=== PATIENT | male | born 1985 | race Caucasian/White ===

== ENCOUNTER 2018-09-28 08:57 | Emergency (ER) | payer SELFPAY ==
[2018-09-28 09:05] VITALS: BP 146/78
[2018-09-28] MEDS ORDERED: LIDOCAINE 1% INJ-PF (10 MG/ML) 30 ML SDV INJ ONE (09:11)
--- NOTE | 2018-09-28 09:17 | ER Document Report ---
ED General <BING SOUSA - Last Filed: 09/28/18 09:45> - General Mode of Arrival: Ambulatory Information source: Patient TRAVEL OUTSIDE OF THE [place] IN LAST 30 DAYS: No <JOYA CHARLTON - Last Filed: 09/28/18 10:10> - General Chief Complaint: Laceration Stated Complaint: LEFT FINGER LACERATION Time Seen by Provider: 09/28/18 09:07 Notes: Patient is a 33 year old male with no significant medical history presents to the emergency department complaining of pain and a laceration to the 2nd digit of the left hand. Patient states he was attempting to open a box with a pocket knife when he accidentally cut his finger. Patient states he does not remember his last tetanus shot. (JOYA CHARLTON) - Related Data Allergies/Adverse Reactions: No Known Allergies Allergy (Unverified 09/28/18 09:01) Past Medical History - General Information source: Patient - Social History Smoking Status: Current Every Day Smoker Cigarette use (# per day): Yes - 10/08 PPD Frequency of alcohol use: Rare Drug Abuse: None Family History: Reviewed & Not Pertinent Past Surgical History: Reports: Hx Appendectomy <JOYA CHARLTON - Last Filed: 09/28/18 10:10> Review of Systems - Review of Systems Constitutional: No symptoms reported EENT: No symptoms reported Cardiovascular: No symptoms reported Respiratory: No symptoms reported Gastrointestinal: No symptoms reported Genitourinary: No symptoms reported Male Genitourinary: No symptoms reported Musculoskeletal: See HPI Skin: No symptoms reported Hematologic/Lymphatic: No symptoms reported Neurological/Psychological: No symptoms reported -: Yes All other systems reviewed and negative <JOYA CHARLTON - Last Filed: 09/28/18 10:10> Physical Exam - Extremities General upper extremity: Other - Left index finger has a 4 cm curvilinear laceration over the volar proximal phalanx starting on the radial aspect of the finger, curving down across the volar aspect without going back the ulnar side. Hemostasis was controlled with a Wilmer drain wrapped around the proximal finger. No tendon involvement was seen on exploration. Sensation was intact to the distal finger on all 4 sides. The patient had good flexion at the DIP joint, the PIP joint, and the MCP joint. <BING SOUSA - Last Filed: 09/28/18 09:45> <JOYA CHARLTON - Last Filed: 09/28/18 10:10> - Vital signs Vitals: Temp Pulse Resp BP Pulse Ox 97.8 F 74 16 146/78 H 97 09/28/18 09:02 09/28/18 09:02 09/28/18 09:02 09/28/18 09:02 09/28/18 09:02 - Notes Notes: GENERAL: Alert, interacts well. No acute distress. HEAD: Normocephalic, atraumatic. EYES: Pupils equal, round, and reactive to light. Extraocular movements intact. ENT: Oral mucosa moist, tongue midline. NECK: Full range of motion. Supple. Trachea midline. LUNGS. No respiratory distress. HEART: Regular rate and rhythm. No murmurs, gallops, or rubs. EXTREMITIES: Moves all 4 extremities spontaneously. NEUROLOGICAL: Alert and oriented x3. Normal speech. PSYCH: Normal affect, normal mood. SKIN: Warm, dry, normal turgor. No rashes or lesions noted. (JOYA CHARLTON) - Vital Signs Vital signs: Temp Pulse Resp BP Pulse Ox 97.8 F 74 16 146/78 H 97 09/28/18 09:02 09/28/18 09:02 09/28/18 09:02 09/28/18 09:02 09/28/18 09:02 Procedures - Laceration/Wound Repair Left Finger 2nd digit Time completed: 09:40 Wound length (cm): 4 Wound's Depth, Shape: Flap, Other - Deep into the subcutaneous tissue Laceration pre-procedure: Sterile drapes applied, Shur-Clens applied Anesthetic type: 1% Lidocaine Volume Anesthetic (mLs): 3 - Digital nerve block Wound explored: Clean, No foreign body removed Irrigated w/ Saline (mLs): 30 Wound Debrided: Minimal Wound Repaired With: Sutures Suture Size/Type: 5:0 Number of Sutures: 7 Layer Closure?: No Post-procedure wound care: Sterile dressing applied Post-procedure NV exam normal: No - The finger remains anesthetized due to the digital nerve block Complications: No <BING SOUSA - Last Filed: 09/28/18 09:45> Discharge <BING SOUSA - Last Filed: 09/28/18 09:45> <JOYA CHARLTON - Last Filed: 09/28/18 10:10> - Discharge Clinical Impression: Finger laceration Qualifiers: Encounter type: initial encounter Finger: index finger Damage to nail status: without damage Foreign body presence: without foreign body Laterality: left Qualified Code(s): S61.211A - Laceration without foreign body of left index finger without damage to nail, initial encounter Condition: Stable Disposition: HOME, SELF-CARE Additional Instructions: Hand Laceration A laceration on the hand can present special problems. It may be difficult to keep the wound dry. Motion of the fingers can disturb the healing edges. Your work may involve exposure to damaging chemicals or water. Keep the wound clean and dry. If you can't keep the cut dry, undisturbed, and free of chemical exposure, please discuss this with the doctor. If any water or chemical gets onto the dressing, remove it, blot the wound dry, then apply a fresh bandage. Dressings should be changed every day. If you feel the stitches pulling as you move the hand, a splint or other form of protection is needed. If any signs of infection occur (swelling, redness, increasing tenderness, red streaks, tender lumps in the armpit, or fever), see the doctor immediately. Keep the wound clean and dressed. Elevate your hand is much as possible for the next 1-2 days. Avoid using that hand and particularly avoid extending the finger or flexing it against resistance. Take the antibiotics as prescribed. Take ibuprofen 800 mg every 8 hours or Aleve 2 tablets every 12 hours for pain as needed. You will be discharged with a narcotic pain medication to take for today if needed. Return in 7-10 days for suture removal. RETURN TO THE EMERGENCY ROOM IF ANY NEW OR WORSENING SYMPTOMS. Prescriptions: Cephalexin Monohydrate [Keflex 500 mg Capsule] 500 mg PO QID #20 capsule Referrals: LOCALMD,NO [Primary Care Provider] - Follow up as needed Scribe Attestation: 09/28/18 09:49 I personally performed the services described in the documentation, reviewed and edited the documentation which was dictated to the scribe in my presence, and it accurately records my words and actions. (BING SOUSA)
[2018-09-28] MEDS ORDERED: HYDROCODONE/ACETAMINOPHEN 5-325 MG (6 TAB/ER DISP) PO PRN (09:45)
[2018-09-28] MEDS ORDERED: CEPHALEXIN 500 MG CAPSULE PO ONE (09:45)
== END 2018-09-28 09:59 | disposition home or self-care (01) ==
LOC: ER 08:57
PROC: 0HQGXZZ Repair Left Hand Skin, External Approach (ICD-10-PCS; principal; 2018-09-28)
DX: S61.211A Laceration without foreign body of left index finger without damage to nail, initial encounter (principal); W26.0XXA Contact with knife, initial encounter; F17.210 Nicotine dependence, cigarettes, uncomplicated
CPT/HCPCS: 99282; 12002; J3490

== ENCOUNTER 2020-03-03 14:59 | Inpatient (IN) | payer OTHER ==
--- NOTE | 2020-03-03 15:35 | ER Document Report ---
ED Medical Screen (RME) - General Chief Complaint: Abdominal Pain Stated Complaint: ABDOMINAL PAIN Time Seen by Provider: 03/03/20 15:25 Primary Care Provider: AGUS CASPER [Primary Care Provider] - Follow up as needed Information source: Patient Notes: 34-year-old male presented to ED for complaint of lower abdominal pain. He states he went with his family this morning when he came back he had some lower abdominal pain so he took some Gas-X. He states the pain is been getting worse all day. He has tenderness to the left and the right lower quadrant but much worse on the right. He does have rebound tenderness to the right. He states he had an appendectomy in 2011 with a ruptured appendix. He states he had to go back in a couple times due to infection says that it cannot be an appendicitis at this time. He is alert oriented respirations regular and unlabored speaking in full sentences. I have greeted and performed a rapid initial assessment of this patient. A comprehensive ED assessment and evaluation of the patient, analysis of test results and completion of medical decision making process will be conducted by an additional ED providers. TRAVEL OUTSIDE OF THE [place] IN LAST 30 DAYS: No - Related Data Allergies/Adverse Reactions: No Known Allergies Allergy (Unverified 09/28/18 09:01) Past Medical History Renal/ Medical History: Denies: Hx Peritoneal Dialysis Past Surgical History: Reports: Hx Appendectomy Doctor's Discharge - Discharge Referrals: AGUS CASPER [Primary Care Provider] - Follow up as needed
--- NOTE | 2020-03-03 16:20 | RADIOLOGY REPORT (SQ) ---
EXAM DESCRIPTION: ACUTE ABDOMEN SERIES IMAGES COMPLETED DATE/TIME: 03/03/2020 4:09 pm REASON FOR STUDY: Severe lower abdominal pain history appendectomy COMPARISON: None. NUMBER OF VIEWS: Three views. TECHNIQUE: Frontal chest, supine abdomen and upright abdomen radiographic images acquired. LIMITATIONS: None. FINDINGS: CHEST: Lungs clear of infiltrates. Cardiac silhouette size, shirley unremarkable. No pleura l effusion or pneumothorax. No subdiaphragmatic free air. FREE AIR: None. No abnormal gas collections. BOWEL GAS PATTERN: Nonobstructive pattern. No dilated loops or air fluid levels. Large amount of sto ol in the ascending colon. CALCIFICATIONS: No suspicious calcifications. HARDWARE: None in the abdomen. SOFT TISSUES: No gross mass or suggestion of organomegaly. BONES: No acute fracture. No worrisome bone lesions. OTHER: No other significant finding. IMPRESSION: Large amount of stool in the ascending colon TECHNICAL DOCUMENTATION: JOB ID: [id number] 2010 [employer]- All Rights Reserved Reading location - IP/workstation name: [email or web address]
[2020-03-03 16:43] LABS: ABSOLUTE EOSINOPHILS # (AUTO) 0.1 10^3/uL (0.0-0.6); ABSOLUTE LYMPHOCYTES (AUTO) 1.7 10^3/uL (0.5-4.7); ABSOLUTE MONOCYTES (AUTO) 0.8 10^3/uL (0.1-1.4); ABSOLUTE NEUT (AUTO) 11.4 10^3/uL (1.7-8.2); BASOPHILS % (AUTO) 0.3 % (0-2); EOSINOPHILS % (AUTO) 0.7 % (0-6); HEMATOCRIT 39.1 % (37.9-51.0); HEMOGLOBIN 13.3 g/dL (13.5-17.0); LYMPHOCYTES % (AUTO) 12.2 % (13-45); MEAN CORPUSCULAR HEMOGLOBIN 30.7 pg (27.0-33.4); MEAN CORPUSCULAR VOLUME 90 fl (80-97); MONOCYTES % (AUTO) 5.7 % (3-13); PLATELET COUNT 446 10^3/uL (150-450); RED BLOOD COUNT 4.34 10^6/uL (4.35-5.55); RED CELL DISTRIBUTION WIDTH 13.3 % (11.5-14.0); SEGMENTED NEUTROPHILS % (AUTO) 81.1 % (42-78); TOTAL CELLS COUNTED % (AUTO) 100 %
[2020-03-03 16:54] LABS: APPEARANCE,URINE CLEAR; BILIRUBIN,URINE NEGATIVE (NEGATIVE); COLOR,URINE YELLOW; GLUCOSE, URINE NEGATIVE (NEGATIVE); KETONES,URINE TRACE mg/dL (NEGATIVE); LEUKOCYTE ESTERASE,URINE NEGATIVE (NEGATIVE); NITRITE,URINE NEGATIVE (NEGATIVE); PROTEIN,URINE NEGATIVE (NEGATIVE); URINE SPECIFIC GRAVITY 1.024; UROBILINOGEN,URINE NEGATIVE mg/dL (<2.0)
[2020-03-03 17:00] LABS: ALKALINE PHOSPHATASE 169 U/L (38-126); ANION GAP 8 (5-19); ASPARTATE AMINO TRANSFERASE 29 U/L (17-59); BILIRUBIN,DIRECT 0.4 mg/dL (0.0-0.4); BILIRUBIN,TOTAL 0.4 mg/dL (0.2-1.3); BLOOD UREA NITROGEN 14 mg/dL (7-20); CALCIUM 9.5 mg/dL (8.4-10.2); CARBON DIOXIDE 30 mmol/L (22-30); CHLORIDE 98 mmol/L (98-107); GLUCOSE 102 mg/dL (75-110); POTASSIUM 4.7 mmol/L (3.6-5.0); TOTAL PROTEIN 7.8 g/dL (6.3-8.2)
[2020-03-03] MEDS ORDERED: MORPHINE SULFATE 10 MG/ML INJ IV ONE (17:08)
--- NOTE | 2020-03-03 17:10 | ER Document Report ---
ED GI/ - General Chief Complaint: Abdominal Pain Stated Complaint: ABDOMINAL PAIN Time Seen by Provider: 03/03/20 15:25 Primary Care Provider: AGUS CASPER [NO LOCAL MD] - Follow up as needed Notes: HPI: 34-year-old male presents today with the onset at 10 AM this morning of pain to the lower abdomen. Right greater than left. A stabbing-like quality. No radiation to the back to the groin. No nausea, vomiting, fevers, dysuria, diarrhea. Patient in 2011 had a ruptured appendix. No history or family history of kidney stones. No flank pain. ROS: See HPI All other review of systems reviewed and otherwise negative Reviewed vital signs and nursing note as charted by RN. PHYSICAL EXAM: CONSTITUTIONAL: Alert and oriented and responds appropriately to questions. Well-appearing; well-nourished HEAD: Normocephalic; atraumatic EYES: Sclerae non-icteric NECK: Supple without meningismus; non-tender; no cervical lymphadenopathy, no masses CARD: Regular rate and rhythm; no murmurs; symmetric distal pulses RESP: Normal chest excursion without splinting or tachypnea; breath sounds clear and equal bilaterally ABD/GI: Normal bowel sounds; non-distended; soft, tender to palpation diffusely of the abdomen with no palpable masses no rebound or guarding. Mostly to the right lower quadrant GI/: Patient has no testicular pain or swelling no inguinal masses appreciated BACK: The back appears normal and is non-tender to palpation EXT: Normal ROM in all joints; non-tender to palpation; no edema SKIN: No acute lesions noted NEURO: CN 2-12 intact; 5/5 bilateral upper and lower extremity strength with sensation intact to light touch PSYCH: The patient's mood and manner are appropriate. Grooming and personal hygiene are appropriate. TRAVEL OUTSIDE OF THE [place] IN LAST 30 DAYS: No - Related Data Allergies/Adverse Reactions: No Known Allergies Allergy (Unverified 09/28/18 09:01) Past Medical History - General Information source: Patient - Social History Smoking Status: Current Every Day Smoker Chew tobacco use (# tins/day): No Frequency of alcohol use: Rare Drug Abuse: None Family History: Reviewed & Not Pertinent Patient has homicidal ideation: No Renal/ Medical History: Denies: Hx Peritoneal Dialysis Past Surgical History: Reports: Hx Appendectomy Physical Exam - Vital signs Vitals: Temp Pulse Resp BP Pulse Ox 98.1 F 69 20 142/79 H 100 03/03/20 15:24 03/03/20 15:24 03/03/20 15:24 03/03/20 15:24 03/03/20 15:24 Course - Re-evaluation Re-evalutation: Given the above history and physical, three-way x-ray was initially ordered in triage as well as basic and abdominal labs. Pain medications have been provided. Given the patient's previous surgical history with examination as above, I will obtain a CT scan of the abdomen and pelvis with contrast. - Vital Signs Vital signs: Temp Pulse Resp BP Pulse Ox 98.1 F 69 20 142/79 H 100 03/03/20 15:25 03/03/20 15:24 03/03/20 15:24 03/03/20 15:24 03/03/20 15:24 - Laboratory Result Diagrams: 03/03/20 16:27 03/03/20 16:27 Laboratory results interpreted by me: 03/03/20 03/03/20 03/03/20 16:27 16:27 16:27 WBC 14.0 H RBC 4.34 L Hgb 13.3 L Lymph % (Auto) 12.2 L Absolute Neuts (auto) 11.4 H Seg Neutrophils % 81.1 H Sodium 136.1 L Alkaline Phosphatase 169 H Lipase 8357.5 H Urine Ketones TRACE H Urine Ascorbic Acid 40 H Discharge - Discharge Clinical Impression: Acute appendicitis Qualifiers: Acute appendicitis type: unspecified acute appendicitis type Qualified Code(s): K35.80 - Unspecified acute appendicitis Condition: Fair Disposition: ADMITTED INPATIENT Admitting Provider: Michelle (Hospitalist) Unit Admitted: Medical Floor Referrals: LOCALMD,NO [NO LOCAL MD] - Follow up as needed
--- NOTE | 2020-03-03 18:11 | RADIOLOGY REPORT (SQ) ---
EXAM DESCRIPTION: CT ABD/PELVIS WITH IV ONLY IMAGES COMPLETED DATE/TIME: 03/03/2020 4:49 pm REASON FOR STUDY: 11; lower abdominal pain; history of appendicitis status post appendectomy in 2011 . Right and left lower quadrant abdominal pain. COMPARISON: None. TECHNIQUE: CT scan of the abdomen and pelvis performed using helical scanning technique with dynamic intravenous contrast injection. No oral contrast. Images reviewed with lung, soft tissue, and bone windows. Reconstructed coronal and sagittal MPR images reviewed. Delayed images for evaluation of the urinary system also acquired. All images stored on PACS. All CT scanners at this facility use dose modulation, iterative reconstruction, and/or weight based d osing when appropriate to reduce radiation dose to as low as reasonably achievable (ALARA). [facility]: Dose Right [facility]: CareDose [facility]: Dose Right [facility]: Teradose 4D [facility]: SoloStocks CONTRAST TYPE AND DOSE: contrast/concentration: Isovue 350.00 mg/ml; Total Contrast Delivered: 100.0 ml; Total Saline Delivered: 72.0 ml RENAL FUNCTION: None required. The patient is less than 50 years old. RADIATION DOSE: CT Rad equipment meets quality standard of care and radiation dose reduction techniq ues were employed. CTDIvol: 5.6 - 7.7 mGy. DLP: 723 mGy-cm.. LIMITATIONS: None. FINDINGS: LOWER CHEST: No significant findings. No nodules or infiltrates. LIVER: Liver is enlarged measuring 21.5 cm craniocaudal at the midclavicular line. Mild diffuse hepa tic steatosis. No focal hepatic mass. Hepatic and portal veins are patent. No intrahepatic or extr ahepatic biliary ductal dilation. SPLEEN: Normal size. No focal lesions. PANCREAS: No masses. No significant calcifications. No adjacent inflammation or peripancreatic fluid collections. Pancreatic duct not dilated. GALLBLADDER: No identified stones by CT criteria. No inflammatory changes to suggest cholecystitis. ADRENAL GLANDS: No significant masses or asymmetry. RIGHT KIDNEY AND URETER: No solid masses. No significant calcifications. No hydronephrosis or hyd roureter. LEFT KIDNEY AND URETER: No solid masses. No significant calcifications. No hydronephrosis or hydr oureter. AORTA AND VESSELS: No aneurysm. No dissection. Renal arteries, SMA, celiac without stenosis. RETROPERITONEUM: No retroperitoneal adenopathy, hemorrhage or masses. BOWEL AND PERITONEAL CAVITY: There is a large amount of stool throughout the colon and in the rectum. No bowel obstruction. Small amount of ascites in the pericolic gutters and pelvis. No bowel wall thickening. No pneumoperitoneum. APPENDIX: Surgically absent. PELVIS: Small amount of free fluid in the pelvis. No pelvic mass. The urinary bladder is unremarkab le. Calcified pelvic phleboliths. ABDOMINAL WALL: No masses. No hernias. BONES: No significant or acute findings. OTHER: No other significant finding. IMPRESSION: 1. Small amount of ascites in the abdomen and pelvis, nonspecific however could be seen with infectio us or inflammatory process. 2. Moderate hepatomegaly with mild hepatic steatosis. Finding could be seen with acute hepatitis. C linical correlation. 3. Large amount of stool throughout the colon which can be seen with constipation. TECHNICAL DOCUMENTATION: JOB ID: [id number] Quality ID # [id number]: Final reports with documentation of one or more dose reduction techniques (e.g., Au tomated exposure control, adjustment of the mA and/or kV according to patient size, use of iterative reconstruction technique) 2010 [employer]- All Rights Reserved Reading location - IP/workstation name: [email or web address]
[2020-03-03] MEDS ORDERED: FENTANYL CITRATE INJ/PF 100 MCG/2 ML AMPUL IV ONE (18:14)
[2020-03-03] MEDS ORDERED: ONDANSETRON 4 MG TAB.RAPDIS PO PRN (18:40)
[2020-03-03] MEDS ORDERED: ONDANSETRON HCL INJ/PF 4 MG/2 ML SDV IV PRN (18:40)
[2020-03-03] MEDS ORDERED: MAGNESIUM HYDROXIDE SUSP 30 ML UDCUP PO PRN (18:40)
[2020-03-03] MEDS ORDERED: HYDROMORPHONE HCL INJ/PF 2 MG/ML AMPULE IV PRN ×6 (18:55→22:00)
--- NOTE | 2020-03-03 19:05 | PDOC H&P ---
History of Present Illness Admission Date/PCP: 03/03/20 18:35 BENOIT SANDERS MD History of Present Illness: KEILA JIANG is a 34 year old male who comes into the emergency room today with acute abdominal pain.. Patient states that on Thursday he had 2 episodes of vomiting he just felt nauseated and vomited twice and he thought he had worked too long in the sunshine, but gotten too hot. States that last night he felt nauseated and did not eat much supper but he did have what he called a normal bowel movement last night. Morning he also had a bowel movement but was not very hungry and has not had any breakfast or lunch. She states today around 10:[address] was riding down the road he started getting vague midepigastric right and left upper quadrant abdominal pain that worsened u ntil around 1:00 when he got severe "10 out of 10". Patient's mother is a nurse practitioner and he called her and she told him to go to the emergency room.. She states it feels like it did when he had his appendix removed in 2011. Patient is nauseated now but no vomiting and is complaining of vague generalized upper abdominal pain. Patient about his alcohol consumption he said the last time he had anything to drink was about 2 weeks ago. Patient states that since he got out of the in 2011 he has not been a heavy drinker but when he was in the for 5 years he drank heavy. She states that so far the pain medicine has not helped in the ER significantly.. Past Medical History Cardiac Medical History: Reports: None Pulmonary Medical History: Reports: None Past Surgical History Past Surgical History: Reports: Appendectomy Social History Smoking Status: Current Every Day Smoker Electronic Cigarette use?: No - Advance Directive Resuscitation Status: Full Code Family History Family History: Reviewed & Not Pertinent Parental Family History Reviewed: No Children Family History Reviewed: No Sibling(s) Family History Reviewed.: No Medication/Allergy Home Medications: Cephalexin Monohydrate [Keflex 500 mg Capsule] 500 mg PO QID #20 capsule 09/28/18 Allergies/Adverse Reactions: No Known Allergies Allergy (Unverified 09/28/18 09:01) Review of Systems Constitutional: ABSENT: chills, fever(s), headache(s), weight gain, weight loss Cardiovascular: ABSENT: chest pain, dyspnea on exertion, edema, orthropnea, palpitations Respiratory: ABSENT: cough, hemoptysis Gastrointestinal: PRESENT: abdominal pain, nausea, vomiting Neurological: ABSENT: abnormal gait, abnormal speech, confusion, dizziness, focal weakness, syncope Psychiatric: ABSENT: anxiety, depression, homidical ideation, suicidal ideation Physical Exam Vital Signs: Temp Pulse Resp BP Pulse Ox 98.1 F 69 20 142/79 H 100 03/03/20 15:25 03/03/20 15:24 03/03/20 15:24 03/03/20 15:24 03/03/20 15:24 Intake & Output 03/02/20 03/03/20 03/04/20 06:59 06:59 06:59 Weight 70.7 kg General appearance: PRESENT: mild distress Respiratory exam: PRESENT: clear to auscultation luis felipe. ABSENT: rales, rhonchi, wheezes Cardiovascular exam: PRESENT: RRR. ABSENT: diastolic murmur, rubs, systolic murmur GI/Abdominal exam: PRESENT: diminished bowel sounds, distended, firm, tenderness Neurological exam: PRESENT: alert, awake, oriented to person, oriented to place, oriented to time, oriented to situation, CN II-XII grossly intact. ABSENT: motor sensory deficit Psychiatric exam: PRESENT: appropriate affect, normal mood. ABSENT: homicidal ideation, suicidal ideation Results Laboratory Results: 03/03/20 16:27 03/03/20 16:27 03/03/20 03/03/20 03/03/20 16:27 16:27 16:27 WBC 14.0 H RBC 4.34 L Hgb 13.3 L Hct 39.1 MCV 90 MCH 30.7 MCHC 34.0 RDW 13.3 Plt Count 446 Seg Neutrophils % 81.1 H Sodium 136.1 L Potassium 4.7 Chloride 98 Carbon Dioxide 30 Anion Gap 8 BUN 14 Creatinine 0.89 Est GFR ( Amer) > 60 Glucose 102 Calcium 9.5 Total Bilirubin 0.4 AST 29 Alkaline Phosphatase 169 H Total Protein 7.8 Albumin 5.0 Amylase Lipase 8357.5 H Urine Color YELLOW Urine Appearance CLEAR Urine pH 5.0 Ur Specific [place] 1.024 Urine Protein NEGATIVE Urine Glucose (UA) NEGATIVE Urine Ketones TRACE H Urine Blood NEGATIVE Urine Nitrite NEGATIVE Ur Leukocyte Esterase NEGATIVE Urine WBC (Auto) 0 Urine RBC (Auto) 1 03/03/20 16:27 WBC RBC Hgb Hct MCV MCH MCHC RDW Plt Count Seg Neutrophils % Sodium Potassium Chloride Carbon Dioxide Anion Gap BUN Creatinine Est GFR ( Amer) Glucose Calcium Total Bilirubin AST Alkaline Phosphatase Total Protein Albumin Amylase 829 H Lipase Urine Color Urine Appearance Urine pH Ur Specific [place] Urine Protein Urine Glucose (UA) Urine Ketones Urine Blood Urine Nitrite Ur Leukocyte Esterase Urine WBC (Auto) Urine RBC (Auto) Impressions: Acute Abdomen Series 03/03/20 15:28 IMPRESSION: Large amount of stool in the ascending colon Abdomen/Pelvis CT 03/03/20 17:00 IMPRESSION: 1. Small amount of ascites in the abdomen and pelvis, nonspecific however could be seen with infectious or inflammatory process. 2. Moderate hepatomegaly with mild hepatic steatosis. Finding could be seen with acute hepatitis. Clinical correlation. 3. Large amount of stool throughout the colon which can be seen with constipation. Assessment and Plan - Diagnosis (1) Abdominal pain Is this a current diagnosis for this admission?: Yes (2) Pancreatitis Is this a current diagnosis for this admission?: Yes (3) Hepatomegaly Is this a current diagnosis for this admission?: Yes (4) Elevated lipase Is this a current diagnosis for this admission?: Yes - Plan Summary Summary: Patient is coming in for IV fluids, n.p.o., IV pain medicine, patient has had a CT scan of the abdomen and pelvis but is also going to get a abdominal ultrasound looking for gallstones sludge or any other indication of gallbladder disease which would make this a gallbladder pancreatitis. This appears to be an alcoholic pancreatitis at the present time. I have called general surgery and he feels that unless this patient has gallbladder disease it should be considered an alcoholic pancreatitis. In fact ultrasound is positive he would like to be consulted on this case. Also has signs of constipation on his CT scan and acute abdominal series and will get a fleets enema tonight and another 1 in the morning.. Is n.p.o. I have explained all this to the patient and he is texted his mother what we have disc ussed - Time Time Spent with patient: 35 or more minutes
[2020-03-03 19:12] LABS: INTERNATIONAL RATION (INR) 0.92; PROTHROMBIN TIME 12.3 SEC (11.4-15.4)
--- NOTE | 2020-03-03 20:21 | RADIOLOGY REPORT (SQ) ---
EXAM DESCRIPTION: Right upper quadrant abdominal ultrasound CLINICAL HISTORY: 34 years Male; 11; Pancreatitis TECHNIQUE: Abdominal ultrasound was performed. COMPARISON: CT scan of the abdomen and pelvis obtained earlier in the day FINDINGS: Pancreas: The body the pancreas is partially seen. The duct is prominent measuring 2.5 mm. The head and tail are not well identified. Liver: The liver measures 17.3 cm in size. There is increased echogenicity consistent with fatty infiltration. Portal vein is patent with hepatopedal flow. There may be mild intrahepatic biliary dilatation.. Gallbladder: The gallbladder is distended. The wall is borderline thick measuring 3 mm. There is echogenic material within the gallbladder consistent with sludge. No definitive stones. No sonographic Gonsalves's. Common bile duct: 5.8 mm. Right kidney: The kidney is only partially seen. It measures 11.2 x 5.2 x 5.5 cm. Echogenicity is normal.. No hydronephrosis. Aorta:Visualized portions are within normal limits. IVC: Visualized portions are within normal limits. Ascites: Trace ascites is seen in the right upper quadrant. IMPRESSION: 1. The gallbladder is distended and contains sludge. Possible intrahepatic biliary dilatation. 2. Trace ascites of uncertain origin. 3. Fatty infiltration of the liver.
--- NOTE | 2020-03-03 20:33 | EKG REPORT ---
SEVERITY:- ABNORMAL ECG - SINUS RHYTHM INCOMPLETE RBBB AND LAFB : Confirmed by: Rolando Correa MD 03-Mar-2020 20:32:27
[2020-03-03] MEDS: FAMOTIDINE INJ/PF 20 MG/2 ML SDV IV SCH (21:04)
[2020-03-03] MEDS: NA PHOS,M-B/NA PHOS,DI-BA (ADULT) 133 ML ENEMA PR SCH (21:04)
[2020-03-03] MEDS: DEXTROSE 5%-NORMAL SALINE 1,000 ML IV PRN (21:04)
[2020-03-03 21:57] LABS: CHOLESTEROL 192.98 mg/dL (0-200); TRIGLYCERIDES 74 mg/dL (<150)
[2020-03-03] MEDS: HYDROMORPHONE HCL INJ/PF 2 MG/ML AMPULE IV PRN (22:03)
[2020-03-03 22:08] LABS: DIRECT LDL 110 mg/dL (<100)
[2020-03-04] MEDS: HYDROMORPHONE HCL INJ/PF 2 MG/ML AMPULE IV PRN ×11 (00:33→21:58)
[2020-03-04] MEDS ORDERED: HYDROMORPHONE HCL INJ/PF 2 MG/ML AMPULE IV PRN ×3 (05:06→05:07)
[2020-03-04] MEDS: DEXTROSE 5%-NORMAL SALINE 1,000 ML IV PRN ×3 (05:13→19:33)
[2020-03-04 06:24] LABS: ABSOLUTE LYMPHOCYTES (AUTO) 0.7 10^3/uL (0.5-4.7); ABSOLUTE MONOCYTES (AUTO) 0.9 10^3/uL (0.1-1.4); ABSOLUTE NEUT (AUTO) 11.3 10^3/uL (1.7-8.2); BASOPHILS % (AUTO) 0.3 % (0-2); HEMATOCRIT 35.4 % (37.9-51.0); HEMOGLOBIN 12.1 g/dL (13.5-17.0); LYMPHOCYTES % (AUTO) 5.1 % (13-45); MEAN CORPUSCULAR HEMOGLOBIN 30.4 pg (27.0-33.4); MEAN CORPUSCULAR VOLUME 89 fl (80-97); MONOCYTES % (AUTO) 7.2 % (3-13); PLATELET COUNT 355 10^3/uL (150-450); RED BLOOD COUNT 3.96 10^6/uL (4.35-5.55); RED CELL DISTRIBUTION WIDTH 13.2 % (11.5-14.0); SEGMENTED NEUTROPHILS % (AUTO) 87.4 % (42-78); TOTAL CELLS COUNTED % (AUTO) 100 %; WHITE BLOOD COUNT 12.9 10^3/uL (4.0-10.5)
[2020-03-04 06:46] LABS: ALBUMIN 4.2 g/dL (3.5-5.0); ALKALINE PHOSPHATASE 135 U/L (38-126); ANION GAP 9 (5-19); ASPARTATE AMINO TRANSFERASE 22 U/L (17-59); BILIRUBIN,DIRECT 0.2 mg/dL (0.0-0.4); BILIRUBIN,TOTAL 0.5 mg/dL (0.2-1.3); BLOOD UREA NITROGEN 15 mg/dL (7-20); CALCIUM 8.9 mg/dL (8.4-10.2); CARBON DIOXIDE 27 mmol/L (22-30); CHLORIDE 101 mmol/L (98-107); GLUCOSE 148 mg/dL (75-110); POTASSIUM 4.1 mmol/L (3.6-5.0); TOTAL PROTEIN 6.7 g/dL (6.3-8.2)
[2020-03-04 07:09] LABS: AMYLASE 2643 U/L (30-110)
[2020-03-04] MEDS: FAMOTIDINE INJ/PF 20 MG/2 ML SDV IV SCH ×2 (09:13→21:59)
[2020-03-04] MEDS: ENOXAPARIN SODIUM INJ 40 MG/0.4 ML DISP.SYRIN SUBCUT SCH (11:43)
[2020-03-04] MEDS: NA PHOS,M-B/NA PHOS,DI-BA (ADULT) 133 ML ENEMA PR SCH ×2 (11:45→22:42)
--- NOTE | 2020-03-04 11:55 | PDOC PROGRESS REPORT ---
Subjective Progress Note for:: 03/04/20 Reason For Visit: ACUTE ABDOMINAL PAIN,PANCRETITIS,CONSTIPATION, 03/04/2020 Patient admitted yesterday afternoon through the emergency room for acute abdominal pain, possible gallbladder pancreatitis, hepatomegaly, Elevated amylase and lipase, constipation Physical Exam Vital Signs: Temp Pulse Resp BP Pulse Ox 98.7 F 80 18 154/79 H 99 03/04/20 08:00 03/04/20 08:00 03/04/20 08:00 03/04/20 08:00 03/04/20 08:00 Intake & Output 03/03/20 03/04/20 03/05/20 06:59 06:59 06:59 Intake Total 1000 Balance 1000 Weight 70.7 kg General appearance: PRESENT: mild distress Respiratory exam: PRESENT: clear to auscultation luis felipe. ABSENT: rales, rhonchi, wheezes Cardiovascular exam: PRESENT: RRR. ABSENT: diastolic murmur, rubs, systolic murmur GI/Abdominal exam: PRESENT: distended, firm, hypoactive bowel sounds, tenderness - Generalized Neurological exam: PRESENT: alert, awake, oriented to person, oriented to place, oriented to time, oriented to situation, CN II-XII grossly intact. ABSENT: motor sensory deficit Psychiatric exam: PRESENT: appropriate affect, normal mood. ABSENT: homicidal ideation, suicidal ideation Results Laboratory Results: 03/04/20 05:58 03/04/20 05:38 03/03/20 03/03/20 03/03/20 16:27 16:27 16:27 WBC 14.0 H RBC 4.34 L Hgb 13.3 L Hct 39.1 MCV 90 MCH 30.7 MCHC 34.0 RDW 13.3 Plt Count 446 Seg Neutrophils % 81.1 H Sodium 136.1 L Potassium 4.7 Chloride 98 Carbon Dioxide 30 Anion Gap 8 BUN 14 Creatinine 0.89 Est GFR ( Amer) > 60 Glucose 102 Calcium 9.5 Magnesium Total Bilirubin 0.4 AST 29 Alkaline Phosphatase 169 H Ammonia C-Reactive Protein Total Protein 7.8 Albumin 5.0 Triglycerides Cholesterol LDL Cholesterol Direct VLDL Cholesterol HDL Cholesterol Amylase Lipase 8357.5 H TSH Free T3 pg/mL Urine Color YELLOW Urine Appearance CLEAR Urine pH 5.0 Ur Specific [place] 1.024 Urine Protein NEGATIVE Urine Glucose (UA) NEGATIVE Urine Ketones TRACE H Urine Blood NEGATIVE Urine Nitrite NEGATIVE Ur Leukocyte Esterase NEGATIVE Urine WBC (Auto) 0 Urine RBC (Auto) 1 03/03/20 03/03/20 03/03/20 16:27 16:27 16:27 WBC RBC Hgb Hct MCV MCH MCHC RDW Plt Count Seg Neutrophils % Sodium Potassium Chloride Carbon Dioxide Anion Gap BUN Creatinine Est GFR ( Amer) Glucose Calcium Magnesium Total Bilirubin AST Alkaline Phosphatase Ammonia C-Reactive Protein 6.5 Total Protein Albumin Triglycerides Cholesterol LDL Cholesterol Direct VLDL Cholesterol HDL Cholesterol Amylase 829 H Lipase TSH 1.08 Free T3 pg/mL Urine Color Urine Appearance Urine pH Ur Specific [place] Urine Protein Urine Glucose (UA) Urine Ketones Urine Blood Urine Nitrite Ur Leukocyte Esterase Urine WBC (Auto) Urine RBC (Auto) 03/03/20 03/03/20 03/03/20 21:20 21:20 21:20 WBC RBC Hgb Hct MCV MCH MCHC RDW Plt Count Seg Neutrophils % Sodium Potassium Chloride Carbon Dioxide Anion Gap BUN Creatinine Est GFR ( Amer) Glucose Calcium Magnesium Total Bilirubin AST Alkaline Phosphatase Ammonia 21.8 C-Reactive Protein Total Protein Albumin Triglycerides 74 Cholesterol 192.98 LDL Cholesterol Direct 110 H VLDL Cholesterol 15.0 HDL Cholesterol 76 Amylase Lipase TSH Free T3 pg/mL 3.36 Urine Color Urine Appearance Urine pH Ur Specific [place] Urine Protein Urine Glucose (UA) Urine Ketones Urine Blood Urine Nitrite Ur Leukocyte Esterase Urine WBC (Auto) Urine RBC (Auto) 03/04/20 03/04/20 05:38 05:58 WBC 12.9 H RBC 3.96 L Hgb 12.1 L Hct 35.4 L MCV 89 MCH 30.4 MCHC 34.0 RDW 13.2 Plt Count 355 Seg Neutrophils % 87.4 H Sodium 136.5 L Potassium 4.1 Chloride 101 Carbon Dioxide 27 Anion Gap 9 BUN 15 Creatinine 0.71 Est GFR ( Amer) > 60 Glucose 148 H Calcium 8.9 Magnesium 1.7 Total Bilirubin 0.5 AST 22 Alkaline Phosphatase 135 H Ammonia C-Reactive Protein Total Protein 6.7 Albumin 4.2 Triglycerides Cholesterol LDL Cholesterol Direct VLDL Cholesterol HDL Cholesterol Amylase 2643 H Lipase 26804.6 H TSH Free T3 pg/mL Urine Color Urine Appearance Urine pH Ur Specific [place] Urine Protein Urine Glucose (UA) Urine Ketones Urine Blood Urine Nitrite Ur Leukocyte Esterase Urine WBC (Auto) Urine RBC (Auto) 03/03/20 16:27 Creatine Kinase 117 Impressions: Acute Abdomen Series 03/03/20 15:28 IMPRESSION: Large amount of stool in the ascending colon Abdomen/Pelvis CT 03/03/20 17:00 IMPRESSION: 1. Small amount of ascites in the abdomen and pelvis, nonspecific however could be seen with infectious or inflammatory process. 2. Moderate hepatomegaly with mild hepatic steatosis. Finding could be seen with acute hepatitis. Clinical correlation. 3. Large amount of stool throughout the colon which can be seen with con stipation. Abdomen Ultrasound 03/03/20 18:13 IMPRESSION: 1. The gallbladder is distended and contains sludge. Possible intrahepatic biliary dilatation. 2. Trace ascites of uncertain origin. 3. Fatty infiltration of the liver. Assessment and Plan - Diagnosis (1) Abdominal pain Is this a current diagnosis for this admission?: Yes (2) Pancreatitis Is this a current diagnosis for this admission?: Yes (3) Hepatomegaly Is this a current diagnosis for this admission?: Yes (4) Elevated lipase Is this a current diagnosis for this admission?: Yes (5) Constipation Is this a current diagnosis for this admission?: Yes - Plan Summary Summary: Patient is coming in for IV fluids, n.p.o., IV pain medicine, patient has had a CT scan of the abdomen and pelvis but is also going to get a abdominal ultrasound looking for gallstones sludge or any other indication of gallbladder disease which would make this a gallbladder pancreatitis. This appears to be an alcoholic pancreatitis at the present time. I have called general surgery and he feels that unless this patient has gallb ladder disease it should be considered an alcoholic pancreatitis. In fact if ultrasound is positive he would like to be consulted on this case. Also has signs of constipation on his CT scan and acute abdominal series and will get a fleets enema tonight and another 1 in the morning.. Is n.p.o. I have explained all this to the patient and he is texted his mother what we have discussed 03/04/2020 Patient's vital signs remained stable he continues to be afebrile 98 6 pulse is 67 on admission his blood pressure was 142/79, it was up slightly this morning to 163/82, however later this morning back down to 154/79 Patient still complaining of abdominal pain and states that he is ready for us to take care of this. Patient using IV Dilaudid for pain relief Yesterday during the interview process with a history and physical patient did tell me that he drank alcohol heavily while in the although this was for 5 years from 2006 through 2011. States that he no longer drinks as he did but we did not quantify the amount. He does admit to drinking alcohol about 2 weeks ago. This morning his white count is down to 12.9 from admission of 14 INR is stable at 0.92 Liver functions remain normal, total and direct bilirubin are normal Amylase is gone up from 829 to 2643 Lipase is gone up from 8357 to 82229 Triglycerides normal at 74 , total cholesterol slightly high at 192 Rapid COVID test is negative Ultrasound done last night shows the gallbladder to be distended, with the wall borderline thickened at 3 mm also echogenic material within the gallbladder consistent with sludge however no definite stones Common bile duct measured at 5.8 mm Trace ascites in the right upper quadrant Fatty infiltration of the liver Surgery has been consulted for their recommendations, patient remains n.p.o. and hemodynamically stable - Time Time Spent with patient: 35 or more minutes
[2020-03-04] MEDS: POLYETHYLENE GLYCOL 3350 POWDER 17 GM/1 PACKET PO SCH (16:14)
[2020-03-04] MEDS ORDERED: MORPHINE SULFATE 10 MG/ML INJ IV PRN ×3 (23:07→23:41)
[2020-03-05] MEDS: MORPHINE SULFATE 10 MG/ML INJ IV PRN ×4 (02:02→06:02)
[2020-03-05] MEDS: DEXTROSE 5%-NORMAL SALINE 1,000 ML IV PRN ×4 (03:42→23:36)
[2020-03-05 05:22] LABS: ABSOLUTE BASOPHILS # (AUTO) 0.1 10^3/uL (0.0-0.2); ABSOLUTE LYMPHOCYTES (AUTO) 0.9 10^3/uL (0.5-4.7); ABSOLUTE MONOCYTES (AUTO) 0.9 10^3/uL (0.1-1.4); ABSOLUTE NEUT (AUTO) 10.3 10^3/uL (1.7-8.2); BASOPHILS % (AUTO) 0.5 % (0-2); EOSINOPHILS % (AUTO) 0.1 % (0-6); HEMATOCRIT 31.4 % (37.9-51.0); HEMOGLOBIN 10.8 g/dL (13.5-17.0); LYMPHOCYTES % (AUTO) 7.3 % (13-45); MEAN CORPUSCULAR HEMOGLOBIN 30.8 pg (27.0-33.4); MEAN CORPUSCULAR HGB CONC 34.5 g/dL (32.0-36.0); MEAN CORPUSCULAR VOLUME 89 fl (80-97); MONOCYTES % (AUTO) 7.3 % (3-13); PLATELET COUNT 281 10^3/uL (150-450); RED BLOOD COUNT 3.51 10^6/uL (4.35-5.55); RED CELL DISTRIBUTION WIDTH 12.9 % (11.5-14.0); SEGMENTED NEUTROPHILS % (AUTO) 84.8 % (42-78); TOTAL CELLS COUNTED % (AUTO) 100 %; WHITE BLOOD COUNT 12.2 10^3/uL (4.0-10.5)
[2020-03-05 05:39] LABS: ALBUMIN 3.3 g/dL (3.5-5.0); ALKALINE PHOSPHATASE 110 U/L (38-126); AMYLASE 1091 U/L (30-110); ASPARTATE AMINO TRANSFERASE 22 U/L (17-59); CARBON DIOXIDE 25 mmol/L (22-30); CHLORIDE 104 mmol/L (98-107); TOTAL PROTEIN 5.8 g/dL (6.3-8.2)
[2020-03-05 05:48] LABS: ANION GAP 6 (5-19); BILIRUBIN,TOTAL 0.4 mg/dL (0.2-1.3); BLOOD UREA NITROGEN 11 mg/dL (7-20); CALCIUM 8.4 mg/dL (8.4-10.2); GLUCOSE 124 mg/dL (75-110); POTASSIUM 3.8 mmol/L (3.6-5.0)
--- NOTE | 2020-03-05 06:27 | PDOC CONSULTATION ---
Consultation Consult Date: 03/04/20 Provider Consulted: SURGICAL SURGICALIST Consult reason:: biliary pancreatitis History of Present Illness Admission Date/PCP: 03/03/20 18:35 BENOIT SANDERS MD History of Present Illness: KEILA JIANG is a 34 year old male seen in consultation at the request of the hospitalist service. Patient reports epigastric abdominal pain radiating to the back. This started approximately 1 day ago. His pain became so severe that he presented to the emergency department for evaluation. He has had nausea, but denies vomiting. He denies fevers, chills, dizziness, orthostasis, blurry vision, chest pain, shortness of breath, melena, hematochezia, hematemesis, fat igue, malaise. His pain is sharp and stabbing. He rates his pain is 8 out of 10. Nothing makes his pain better or worse. Patient does report occasional alcohol ingestion, but has not had an alcoholic beverage in approximately 2 weeks. Past Medical History Cardiac Medical History: Reports: None Pulmonary Medical History: Reports: None Psychiatric Medical History: Denies: Depression Past Surgical History Past Surgical History: Reports: Appendectomy Social History Smoking Status: Current Every Day Smoker Cigarettes Packs Per Day: 0.5 Electronic Cigarette use?: No Frequency of Alcohol Use: Occasional Hx Recreational Drug Use: No Hx Prescription Drug Abuse: No - Advance Directive Resuscitation Status: Full Code Family History Family History: Reviewed & Not Pertinent Parental Family History Reviewed: Yes Children Family History Reviewed: Yes Sibling(s) Family History Reviewed.: Yes Medication/Allergy Home Medications: No Home Medications 03/04/20 Allergies/Adverse Reactions: No Known Allergies Allergy (Unverified 03/04/20 23:25) Review of Systems Constitutional: ABSENT: anorexia, chills, fatigue, fever(s), headache(s), weakness Eyes: ABSENT: visual disturbances Ears: ABSENT: hearing changes Nose, Mouth, and Throat: ABSENT: headache(s), sore throat Cardiovascular: ABSENT: chest pain Respiratory: ABSENT: cough, dyspnea Gastrointestinal: PRESENT: abdominal pain, nausea. ABSENT: hematemesis, hematochezia, melena, vomiting Genitourinary: ABSENT: dysuria Musculoskeletal: PRESENT: back pain Integumentary: ABSENT: pruritus, rash Neurological: ABSENT: confusion, convulsions, dizziness Psychiatric: ABSENT: anxiety, depression Endocrine: ABSENT: cold intolerance, heat intolerance Hematologic/Lymphatic: ABSENT: easy bleeding, easy bruising Physical Exam Vital Signs: Temp Pulse Resp BP Pulse Ox 98.7 F 80 18 154/79 H 99 03/04/20 08:00 03/04/20 08:00 03/04/20 08:00 03/04/20 08:00 03/04/20 08:00 Intake & Output 03/03/20 03/04/20 03/05/20 06:59 06:59 06:59 Intake Total 1000 Balance 1000 Weight 70.7 kg General appearance: PRESENT: no acute distress, cooperative Head exam: PRESENT: atraumatic, normocephalic Eye exam: PRESENT: EOMI, PERRLA. ABSENT: scleral icterus Mouth exam: PRESENT: moist, neck supple Neck exam: ABSENT: meningismus, tenderness, thyromegaly, tracheal deviation Respiratory exam: PRESENT: unlabored. ABSENT: tachypnea, wheezes Cardiovascular exam: ABSENT: tachycardia Pulses: PRESENT: normal radial pulses Vascular exam: PRESENT: normal capillary refill, pallor GI/Abdominal exam: PRESENT: guarding, soft, tenderness Rectal exam: PRESENT: deferred Extremities exam: ABSENT: clubbing Musculoskeletal exam: ABSENT: deformity Neurological exam: PRESENT: alert, awake, oriented to person, oriented to place, oriented to time, oriented to situation, CN II-XII grossly intact Psychiatric exam: ABSENT: agitated, anxious, depressed Focused psych exam: ABSENT: delusional Skin exam: ABSENT: cyanosis, erythema, jaundice Results Laboratory Results: 03/04/20 05:58 03/04/20 05:38 03/03/20 03/03/20 03/03/20 16:27 16:27 16:27 WBC 14.0 H RBC 4.34 L Hgb 13.3 L Hct 39.1 MCV 90 MCH 30.7 MCHC 34.0 RDW 13.3 Plt Count 446 Seg Neutrophils % 81.1 H Sodium 136.1 L Potassium 4.7 Chloride 98 Carbon Dioxide 30 Anion Gap 8 BUN 14 Creatinine 0.89 Est GFR ( Amer) > 60 Glucose 102 Calcium 9.5 Magnesium Total Bilirubin 0.4 AST 29 Alkaline Phosphatase 169 H Ammonia C-Reactive Protein Total Protein 7.8 Albumin 5.0 Triglycerides Cholesterol LDL Cholesterol Direct VLDL Cholesterol HDL Cholesterol Amylase Lipase 8357.5 H TSH Free T3 pg/mL Urine Color YELLOW Urine Appearance CLEAR Urine pH 5.0 Ur Specific [place] 1.024 Urine Protein NEGATIVE Urine Glucose (UA) NEGATIVE Urine Ketones TRACE H Urine Blood NEGATIVE Urine Nitrite NEGATIVE Ur Leukocyte Esterase NEGATIVE Urine WBC (Auto) 0 Urine RBC (Auto) 1 03/03/20 03/03/20 03/03/20 16:27 16:27 16:27 WBC RBC Hgb Hct MCV MCH MCHC RDW Plt Count Seg Neutrophils % Sodium Potassium Chloride Carbon Dioxide Anion Gap BUN Creatinine Est GFR ( Amer) Glucose Calcium Magnesium Total Bilirubin AST Alkaline Phosphatase Ammonia C-Reactive Protein 6.5 Total Protein Albumin Triglycerides Cholesterol LDL Cholesterol Direct VLDL Cholesterol HDL Cholesterol Amylase 829 H Lipase TSH 1.08 Free T3 pg/mL Urine Color Urine Appearance Urine pH Ur Specific [place] Urine Protein Urine Glucose (UA) Urine Ketones Urine Blood Urine Nitrite Ur Leukocyte Esterase Urine WBC (Auto) Urine RBC (Auto) 03/03/20 03/03/20 03/03/20 21:20 21:20 21:20 WBC RBC Hgb Hct MCV MCH MCHC RDW Plt Count Seg Neutrophils % Sodium Potassium Chloride Carbon Dioxide Anion Gap BUN Creatinine Est GFR ( Amer) Glucose Calcium Magnesium Total Bilirubin AST Alkaline Phosphatase Ammonia 21.8 C-Reactive Protein Total Protein Albumin Triglycerides 74 Cholesterol 192.98 LDL Cholesterol Direct 110 H VLDL Cholesterol 15.0 HDL Cholesterol 76 Amylase Lipase TSH Free T3 pg/mL 3.36 Urine Color Urine Appearance Urine pH Ur Specific [place] Urine Protein Urine Glucose (UA) Urine Ketones Urine Blood Urine Nitrite Ur Leukocyte Esterase Urine WBC (Auto) Urine RBC (Auto) 03/04/20 03/04/20 05:38 05:58 WBC 12.9 H RBC 3.96 L Hgb 12.1 L Hct 35.4 L MCV 89 MCH 30.4 MCHC 34.0 RDW 13.2 Plt Count 355 Seg Neutrophils % 87.4 H Sodium 136.5 L Potassium 4.1 Chloride 101 Carbon Dioxide 27 Anion Gap 9 BUN 15 Creatinine 0.71 Est GFR ( Amer) > 60 Glucose 148 H Calcium 8.9 Magnesium 1.7 Total Bilirubin 0.5 AST 22 Alkaline Phosphatase 135 H Ammonia C-Reactive Protein Total Protein 6.7 Albumin 4.2 Triglycerides Cholesterol LDL Cholesterol Direct VLDL Cholesterol HDL Cholesterol Amylase 2643 H Lipase 78448.6 H TSH Free T3 pg/mL Urine Color Urine Appearance Urine pH Ur Specific [place] Urine Protein Urine Glucose (UA) Urine Ketones Urine Blood Urine Nitrite Ur Leukocyte Esterase Urine WBC (Auto) Urine RBC (Auto) 03/03/20 16:27 Creatine Kinase 117 Impressions: Acute Abdomen Series 03/03/20 15:28 IMPRESSION: Large amount of stool in the ascending colon Abdomen/Pelvis CT 03/03/20 17:00 IMPRESSION: 1. Small amount of ascites in the abdomen and pelvis, nonspecific however could be seen with infectious or inflammatory process. 2. Moderate hepatomegaly with mild hepatic steatosis. Finding could be seen with acute hepatitis. Clinical correlation. 3. Large amount of stool throughout the colon which can be seen with constipation. Abdomen Ultrasound 03/03/20 18:13 IMPRESSION: 1. The gallbladder is distended and contains sludge. Possible intrahepatic biliary dilatation. 2. Trace ascites of uncertain origin. 3. Fatty infiltration of the liver. Assessment & Plan - Diagnosis (1) Biliary acute pancreatitis Qualifiers: Acute pancreatitis complication: unspecified Qualified Code(s): K85.10 - Biliary acute pancreatitis without necrosis or infection Is this a current diagnosis for this admission?: Yes - Plan Summary Plan Summary: This is a 34-year-old male with pancreatitis and gallstones. The patient's li pase has doubled overnight. His amylase is elevated as well. The patient still has significant symptoms. The patient will require cholecystectomy to prevent recurrent pancreatitis, however I would like to see a plateau in his numbers before surgery. Continue n.p.o. Okay for ice chips. Plan for cholecystectomy once amylase and lipase are no longer increasing. This is been discussed with the patient. He is in agreement with the treatment plan. Surgery will continue to follow with you.
[2020-03-05] MEDS: HYDROMORPHONE HCL INJ/PF 2 MG/ML AMPULE IV PRN ×6 (08:06→23:35)
--- NOTE | 2020-03-05 10:03 | RADIOLOGY REPORT (SQ) ---
EXAM DESCRIPTION: KUB/ABDOMEN (SINGLE VIEW) IMAGES COMPLETED DATE/TIME: 03/05/2020 9:31 am REASON FOR STUDY: stool COMPARISON: AP view of the abdomen from 03/03/2020. NUMBER OF VIEWS: One view. TECHNIQUE: Supine radiographic image of the abdomen acquired. LIMITATIONS: None. FINDINGS: BOWEL GAS PATTERN: The amount of fecal material in the colon has decreased. There are no dilated loops of bowel. CALCIFICATIONS: None. SOFT TISSUES: No abnormality. HARDWARE: None in the abdomen. BONES: No acute fracture. OTHER: No other finding. IMPRESSION: The amount of fecal material in the colon has decreased since 03/03/2020. There are no d ilated loops of bowel. TECHNICAL DOCUMENTATION: JOB ID: [id number] 2010 [employer] All Rights Reserved Reading location - IP/workstation name: [email or web address]
[2020-03-05] MEDS: FAMOTIDINE INJ/PF 20 MG/2 ML SDV IV SCH ×2 (10:31→21:35)
[2020-03-05] MEDS: ENOXAPARIN SODIUM INJ 40 MG/0.4 ML DISP.SYRIN SUBCUT SCH (10:32)
[2020-03-05] MEDS: POLYETHYLENE GLYCOL 3350 POWDER 17 GM/1 PACKET PO SCH (10:33)
[2020-03-05] MEDS: NA PHOS,M-B/NA PHOS,DI-BA (ADULT) 133 ML ENEMA PR SCH (10:40)
[2020-03-05] MEDS: LORAZEPAM 1 MG TABLET PO PRN ×3 (10:58→23:35)
[2020-03-05] MEDS: ACETAMINOPHEN 325 MG TABLET PO PRN ×2 (11:11→15:17)
[2020-03-05 12:36] LABS: HEPATITS B SURFACE ANTIGEN Negative (Negative)
--- NOTE | 2020-03-05 12:42 | PDOC PROGRESS REPORT ---
Subjective Progress Note for:: 03/05/20 Subjective:: Still with diffuse abdominal pains and constipation Reason For Visit: ACUTE ABDOMINAL PAIN,PANCRETITIS,CONSTIPATION, Physical Exam Vital Signs: Temp Pulse Resp BP Pulse Ox 100.7 F H 97 16 152/76 H 99 03/05/20 12:27 03/05/20 07:26 03/05/20 07:26 03/05/20 07:26 03/05/20 07:26 Intake & Output 03/04/20 03/05/20 03/06/20 06:59 06:59 06:59 Intake Total 1000 3000 995 Balance 1000 3000 995 Weight 70.7 kg 70.7 kg GI/Abdominal exam: PRESENT: tenderness - Diffuse tenderness mostly in the lower quadrants. Denies any nausea and complaining of that he has not eaten in the past few days. Also complaining that he did not have any results from a fleets enema Results Laboratory Results: 03/05/20 04:50 03/05/20 04:50 03/05/20 03/05/20 04:50 04:50 WBC 12.2 H RBC 3.51 L Hgb 10.8 L Hct 31.4 L MCV 89 MCH 30.8 MCHC 34.5 RDW 12.9 Plt Count 281 Seg Neutrophils % 84.8 H Sodium 135.4 L Potassium 3.8 Chloride 104 Carbon Dioxide 25 Anion Gap 6 BUN 11 Creatinine 0.56 Est GFR ( Amer) > 60 Glucose 124 H Calcium 8.4 Total Bilirubin 0.4 AST 22 Alkaline Phosphatase 110 Total Protein 5.8 L Albumin 3.3 L Amylase 1091 H Lipase 3908.9 H 03/03/20 16:27 Creatine Kinase 117 Impressions: Acute Abdomen Series 03/03/20 15:28 IMPRESSION: Large amount of stool in the ascending colon Abdomen/Pelvis CT 03/03/20 17:00 IMPRESSION: 1. Small amount of ascites in the abdomen and pelvis, nonspecific however could be seen with infectious or inflammatory process. 2. Moderate hepatomegaly with mild hepatic steatosis. Finding could be seen with acute hepatitis. Clinical correlation. 3. Large amount of stool throughout the colon which can be seen with constipation. Abdomen Ultrasound 03/03/20 18:13 IMPRESSION: 1. The gallbladder is distended and contains sludge. Possible intrahepatic biliary dilatation. 2. Trace ascites of uncertain origin. 3. Fatty infiltration of the liver. KUB X-Ray 03/05/20 07:00 IMPRESSION: The amount of fecal material in the colon has decreased since 03/03/2020. There are no dilated loops of bowel. Assessment & Plan - Diagnosis (1) Abdominal pain Is this a current diagnosis for this admission?: Yes (2) Biliary acute pancreatitis Qualifiers: Acute pancreatitis complication: unspecified Qualified Code(s): K85.10 - Biliary acute pancreatitis without necrosis or infection Is this a current diagnosis for this admission?: Yes (3) Elevated lipase Is this a current diagnosis for this admission?: Yes (4) Pancreatitis Qualifiers: Chronicity: acute Is this a current diagnosis for this admission?: Yes - Time Critical Time spent with patient: 15-24 minutes - Inpatient Certification Medical Necessity: Need For IV Fluids, Need for Pain Control, Need for Surgery - Plan Summary Plan Summary: 34-year-old male with biliary pancreatitis. He had a history of heavy alcohol intake when he was in the . In the past few years has been off and drinks a lot less this time. He is still complaining of diffuse abdominal pains mostly in the lower quadrants. Denies any nausea or vomiting. His lipase initially went up yesterday. This morning his lipase is slightly lower. He is asking for more pain medications. He is afebrile though with a normal white count Plans: Continue with IV fluids. Start small amount of clears Continue pain management Continue monitor lipase We will schedule laparoscopic cholecystectomy when he is lipase is almost normal or normal.
[2020-03-05 12:50] LABS: HEPATITIS C VIRUS ANTIBODY <0.1 s/co ratio (0.0-0.9)
--- NOTE | 2020-03-05 15:06 | PDOC PROGRESS REPORT ---
Subjective Progress Note for:: 03/05/20 Reason For Visit: ACUTE ABDOMINAL PAIN,PANCRETITIS,CONSTIPATION, 03/05/2020 Gallbladder pancreatitis, abdominal pain, constipation Physical Exam Vital Signs: Temp Pulse Resp BP Pulse Ox 100.7 F H 97 16 152/76 H 99 03/05/20 12:27 03/05/20 07:26 03/05/20 07:26 03/05/20 07:26 03/05/20 07:26 Intake & Output 03/04/20 03/05/20 03/06/20 06:59 06:59 06:59 Intake Total 1000 3000 995 Balance 1000 3000 995 Weight 70.7 kg 70.7 kg General appearance: PRESENT: mild distress Respiratory exam: PRESENT: clear to auscultation luis felipe. ABSENT: rales, rhonchi, wheezes Cardiovascular exam: PRESENT: RRR. ABSENT: diastolic murmur, rubs, systolic murmur GI/Abdominal exam: PRESENT: diminished bowel sounds, distended, firm Neurological exam: PRESENT: alert, awake, oriented to person, oriented to place, oriented to time, oriented to situation, CN II-XII grossly intact. ABSENT: motor sensory deficit Psychiatric exam: PRESENT: appropriate affect, normal mood. ABSENT: homicidal ideation, suicidal ideation Results Laboratory Results: 03/05/20 04:50 03/05/20 04:50 03/05/20 03/05/20 04:50 04:50 WBC 12.2 H RBC 3.51 L Hgb 10.8 L Hct 31.4 L MCV 89 MCH 30.8 MCHC 34.5 RDW 12.9 Plt Count 281 Seg Neutrophils % 84.8 H Sodium 135.4 L Potassium 3.8 Chloride 104 Carbon Dioxide 25 Anion Gap 6 BUN 11 Creatinine 0.56 Est GFR ( Amer) > 60 Glucose 124 H Calcium 8.4 Total Bilirubin 0.4 AST 22 Alkaline Phosphatase 110 Total Protein 5.8 L Albumin 3.3 L Amylase 1091 H Lipase 3908.9 H 03/03/20 16:27 Creatine Kinase 117 Impressions: Acute Abdomen Series 03/03/20 15:28 IMPRESSION: Large amount of stool in the ascending colon Abdomen/Pelvis CT 03/03/20 17:00 IMPRESSION: 1. Small amount of ascites in the abdomen and pelvis, nonspecific however could be seen with infectious or inflammatory process. 2. Moderate hepatomegaly with mild hepatic steatosis. Finding could be seen with acute hepatitis. Clinical correlation. 3. Large amount of stool throughout the colon which can be seen with cons tipation. Abdomen Ultrasound 03/03/20 18:13 IMPRESSION: 1. The gallbladder is distended and contains sludge. Possible intrahepatic biliary dilatation. 2. Trace ascites of uncertain origin. 3. Fatty infiltration of the liver. KUB X-Ray 03/05/20 07:00 IMPRESSION: The amount of fecal material in the colon has decreased since 03/03/2020. There are no dilated loops of bowel. Assessment and Plan - Diagnosis (1) Abdominal pain Is this a current diagnosis for this admission?: Yes (2) Pancreatitis Qualifiers: Chronicity: acute Is this a current diagnosis for this admission?: Yes (3) Hepatomegaly Is this a current diagnosis for this admission?: Yes (4) Elevated lipase Is this a current diagnosis for this admission?: Yes (5) Constipation Is this a current diagnosis for this admission?: Yes - Plan Summary Summary: Patient is coming in for IV fluids, n.p.o., IV pain medicine, patient has had a CT scan of the abdomen and pelvis but is also going to get a abdominal ultrasound looking for gallstones sludge or any other indication of gallbladder disease which would make this a gallbladder pancreatitis. This appears to be an alcoholic pancreatitis at the present time. I have called general surgery and he feels that unless this patient has gallbladder disease it should be considered an alcoholic pancreatitis. In fact if ultrasound is positive he would like to be consulted on this case. Also has signs of constipation on his CT scan and acute abdominal series and will get a fleets enema tonight and another 1 in the morning.. Is n.p.o. I have explained all this to the patient and he is texted his mother what we have discussed 03/04/2020 Patient's vital signs remained stable he continues to be afebrile 98 6 pulse is 67 on admission his blood pressure was 142/79, it was up slightly this morning to 163/82, however later this morning back down to 154/79 Patient still complaining of abdominal pain and states that he is ready for us to take care of this. Patient using IV Dilaudid for pain relief Yesterday during the interview process with a history and physical patient did tell me that he drank alcohol heavily while in the although this was for 5 years from 2006 through 2011. States that he no longer drinks as he did but we did not quantify the amount. He does admit to drinking alcohol about 2 weeks ago. This morning his white count is down to 12.9 from admission of 14 INR is stable at 0.92 Liver functions remain normal, total and direct bilirubin are normal Amylase is gone up from 829 to 2643 Lipase is gone up from 8357 to 10799 Triglycerides normal at 74 , total cholesterol slightly high at 192 Rapid COVID test is negative Ultrasound done last night shows the gallbladder to be distended, with the wall borderline thickened at 3 mm also echogenic material within the gallbladder consistent with sludge however no definite stones Common bile duct measured at 5.8 mm Trace ascites in the right upper quadrant Fatty infiltration of the liver Surgery has been consulted for their recommendations, patient remains n.p.o. and hemodynamically stable 03/05/2020 Appreciate general surgery's note Temperature 98.5 pulse 89 blood pressure 165/80 O2 sat 99% on room air White blood cell count this morning 12.2 bilirubins are normal, LFTs are normal Amylase is down to 1091 and lipase is down to 3908 General surgery who started the patient on a clear diet. Surgery will be when p atient has normalized his lipase and more stable I have added Ativan every 6 hours to his pain regimen as I do not want to go up on his Dilaudid. This seems to be satisfactory for the time Patient appears to be medically stable. - Time Time Spent with patient: 25-34 minutes
[2020-03-05] MEDS ORDERED: ONDANSETRON HCL INJ/PF 4 MG/2 ML SDV IV PRN (15:30)
[2020-03-05] MEDS ORDERED: ONDANSETRON 4 MG TAB.RAPDIS PO PRN (15:30)
[2020-03-05] MEDS ORDERED: DEXTROSE 50%-WATER 25 GM/50 ML DISP.SYRIN IV PRN ×2 (15:31)
[2020-03-05] MEDS ORDERED: GLUCAGON,HUMAN RECOMB 1 MG INJ SUBCUT PRN (15:31)
[2020-03-05] MEDS ORDERED: DEXTROSE 40% GEL 15 GM TUBE PO PRN ×2 (15:31)
[2020-03-05] MEDS: NICOTINE 14 MG/24 HR PATCH.TD24 TD SCH (17:35)
[2020-03-05] MEDS: TEMAZEPAM 7.5 MG CAPSULE PO PRN (21:41)
[2020-03-06] MEDS: HYDROMORPHONE HCL INJ/PF 2 MG/ML AMPULE IV PRN ×11 (01:35→22:36)
[2020-03-06 05:38] LABS: ABSOLUTE BASOPHILS # (AUTO) 0.1 10^3/uL (0.0-0.2); ABSOLUTE LYMPHOCYTES (AUTO) 0.9 10^3/uL (0.5-4.7); ABSOLUTE MONOCYTES (AUTO) 1.1 10^3/uL (0.1-1.4); ABSOLUTE NEUT (AUTO) 11.2 10^3/uL (1.7-8.2); BASOPHILS % (AUTO) 0.8 % (0-2); EOSINOPHILS % (AUTO) 0.3 % (0-6); HEMATOCRIT 30.2 % (37.9-51.0); HEMOGLOBIN 10.3 g/dL (13.5-17.0); MEAN CORPUSCULAR HEMOGLOBIN 30.8 pg (27.0-33.4); MEAN CORPUSCULAR HGB CONC 34.2 g/dL (32.0-36.0); MEAN CORPUSCULAR VOLUME 90 fl (80-97); MONOCYTES % (AUTO) 8.5 % (3-13); PLATELET COUNT 279 10^3/uL (150-450); RED BLOOD COUNT 3.35 10^6/uL (4.35-5.55); RED CELL DISTRIBUTION WIDTH 12.9 % (11.5-14.0); SEGMENTED NEUTROPHILS % (AUTO) 83.4 % (42-78); TOTAL CELLS COUNTED % (AUTO) 100 %; WHITE BLOOD COUNT 13.4 10^3/uL (4.0-10.5)
[2020-03-06] MEDS: ACETAMINOPHEN 325 MG TABLET PO PRN ×3 (05:45→18:27)
[2020-03-06 05:55] LABS: ALBUMIN 3.2 g/dL (3.5-5.0); ALKALINE PHOSPHATASE 148 U/L (38-126); AMYLASE 311 U/L (30-110); ANION GAP 6 (5-19); ASPARTATE AMINO TRANSFERASE 88 U/L (17-59); BILIRUBIN,DIRECT 0.1 mg/dL (0.0-0.4); BILIRUBIN,TOTAL 0.4 mg/dL (0.2-1.3); BLOOD UREA NITROGEN 9 mg/dL (7-20); CALCIUM 8.5 mg/dL (8.4-10.2); CARBON DIOXIDE 26 mmol/L (22-30); CHLORIDE 103 mmol/L (98-107); GLUCOSE 121 mg/dL (75-110); POTASSIUM 3.9 mmol/L (3.6-5.0); TOTAL PROTEIN 5.7 g/dL (6.3-8.2)
[2020-03-06] MEDS: DEXTROSE 5%-NORMAL SALINE 1,000 ML IV PRN ×3 (06:27→22:19)
--- NOTE | 2020-03-06 09:01 | RADIOLOGY REPORT (SQ) ---
EXAM DESCRIPTION: CT ABD/PELVIS WITH IV ONLY IMAGES COMPLETED DATE/TIME: 03/06/2020 8:17 am REASON FOR STUDY: Gallbladder pancreatitis COMPARISON: 03/03/2020. TECHNIQUE: CT scan of the abdomen and pelvis performed using helical scanning technique with dynamic intravenous contrast injection. No oral contrast. Images reviewed with lung, soft tissue, and bone windows. Reconstructed coronal and sagittal MPR images reviewed. Delayed images for evaluation of the urinary system also acquired. All images stored on PACS. All CT scanners at this facility use dose modulation, iterative reconstruction, and/or weight based d osing when appropriate to reduce radiation dose to as low as reasonably achievable (ALARA). [facility]: Dose Right [facility]: CareDose [facility]: Dose Right [facility]: Teradose 4D [facility]: Torneo [employer] Ideas CONTRAST TYPE AND DOSE: contrast/concentration: Isovue 350.00 mg/ml; Total Contrast Delivered: 80.0 ml; Total Saline Delivered: 68.0 ml RENAL FUNCTION: BUN 9 creatinine 0.7. RADIATION DOSE: CT Rad equipment meets quality standard of care and radiation dose reduction techniq ues were employed. CTDIvol: 4.4 - 4.4 mGy. DLP: 501 mGy-cm.. LIMITATIONS: None. FINDINGS: LOWER CHEST: Small left pleural effusion. Atelectasis in the lung bases, left greater stan n right. LIVER: Normal size. No masses. No dilated ducts. SPLEEN: Normal size. No focal lesions. PANCREAS: No masses. No significant calcifications. Inflammatory changes and fluid in the peripancre atic soft tissues. Pancreatic duct not dilated. GALLBLADDER: No identified stones by CT criteria. No inflammatory changes to suggest cholecystitis. ADRENAL GLANDS: No significant masses or asymmetry. RIGHT KIDNEY AND URETER: No solid masses. No significant calcifications. No hydronephrosis or hyd roureter. LEFT KIDNEY AND URETER: No solid masses. No significant calcifications. No hydronephrosis or hydr oureter. AORTA AND VESSELS: No aneurysm. No dissection. Renal arteries, SMA, celiac without stenosis. RETROPERITONEUM: No retroperitoneal adenopathy, hemorrhage or masses. BOWEL AND PERITONEAL CAVITY: No masses or inflammatory changes. Small amount of ascites. APPENDIX: Surgically absent. PELVIS: No mass. Small amount of free fluid. Normal bladder. ABDOMINAL WALL: No masses. No hernias. BONES: No significant or acute findings. OTHER: No other significant finding. IMPRESSION: 1. INFLAMMATORY CHANGES AND FLUID IN THE PERIPANCREATIC TISSUES CONSISTENT WITH ACUTE PANCREATITIS. SMALL AMOUNT OF FREE FLUID. 2. SMALL LEFT PLEURAL EFFUSION. ATELECTASIS IN THE LUNG BASES. 3. NO OTHER SIGNIFICANT OR ACUTE FINDING IN THE ABDOMEN OR PELVIS ON CT SCAN WITH IV CONTRAST. TECHNICAL DOCUMENTATION: JOB ID: [id number] Quality ID # [id number]: Final reports with documentation of one or more dose reduction techniques (e.g., Au tomated exposure control, adjustment of the mA and/or kV according to patient size, use of iterative reconstruction technique) 2010 [employer]- All Rights Reserved Reading location - IP/workstation name: [email or web address]
[2020-03-06] MEDS: FAMOTIDINE INJ/PF 20 MG/2 ML SDV IV SCH ×2 (10:07→22:19)
[2020-03-06] MEDS: ENOXAPARIN SODIUM INJ 40 MG/0.4 ML DISP.SYRIN SUBCUT SCH (10:07)
[2020-03-06] MEDS: POLYETHYLENE GLYCOL 3350 POWDER 17 GM/1 PACKET PO SCH (10:23)
[2020-03-06] MEDS: NICOTINE 14 MG/24 HR PATCH.TD24 TD SCH (10:47)
[2020-03-06] MEDS ORDERED: BISACODYL 5 MG TABEC PO ONE (14:03)
--- NOTE | 2020-03-06 14:09 | PDOC PROGRESS REPORT ---
Subjective Progress Note for:: 03/06/20 Subjective:: Patient continues to have pain mostly periumbilical but also in the left lower quadrant. Defined as a sharp stabbing pain. Denies any nausea vomiting. Passing gas but no much in terms of bowel movement. Reason For Visit: ACUTE ABDOMINAL PAIN,PANCRETITIS,CONSTIPATION, Physical Exam Vital Signs: Temp Pulse Resp BP Pulse Ox 98.3 F 92 16 139/75 H 100 03/06/20 11:12 03/06/20 11:12 03/06/20 11:12 03/06/20 11:12 03/06/20 11:12 Intake & Output 03/05/20 03/06/20 03/07/20 06:59 06:59 06:59 Intake Total 3000 3973 Balance 3000 3973 Weight 70.7 kg 70.7 kg General appearance: PRESENT: no acute distress, cooperative Neck exam: ABSENT: JVD Respiratory exam: PRESENT: clear to auscultation luis felipe, unlabored. ABSENT: tachypnea, wheezes Cardiovascular exam: PRESENT: RRR, +S1, +S2. ABSENT: tachycardia GI/Abdominal exam: PRESENT: distended - Mild, guarding, normal bowel sounds, soft, tenderness. ABSENT: firm, rebound, rigid Neurological exam: PRESENT: alert, awake, oriented to person, oriented to place, oriented to time Results Laboratory Results: 03/06/20 05:05 03/06/20 05:05 03/06/20 03/06/20 05:05 05:05 WBC 13.4 H RBC 3.35 L Hgb 10.3 L Hct 30.2 L MCV 90 MCH 30.8 MCHC 34.2 RDW 12.9 Plt Count 279 Seg Neutrophils % 83.4 H Sodium 135.4 L Potassium 3.9 Chloride 103 Carbon Dioxide 26 Anion Gap 6 BUN 9 Creatinine 0.70 Est GFR ( Amer) > 60 Glucose 121 H Calcium 8.5 Total Bilirubin 0.4 AST 88 H Alkaline Phosphatase 148 H Total Protein 5.7 L Albumin 3.2 L Amylase 311 H Lipase 611.8 H 03/03/20 16:27 Creatine Kinase 117 Impressions: Acute Abdomen Series 03/03/20 15:28 IMPRESSION: Large amount of stool in the ascending colon Abdomen Ultrasound 03/03/20 18:13 IMPRESSION: 1. The gallbladder is distended and contains sludge. Possible intrahepatic biliary dilatation. 2. Trace ascites of uncertain origin. 3. Fatty infiltration of the liver. KUB X-Ray 03/05/20 07:00 IMPRESSION: The amount of fecal material in the colon has decreased since 03/03/2020. There are no dilated loops of bowel. Abdomen/Pelvis CT 03/06/20 07:00 IMPRESSION: 1. INFLAMMATORY CHANGES AND FLUID IN THE PERIPANCREATIC TISSUES CONSISTENT WITH ACUTE PANCREATITIS. SMALL AMOUNT OF FREE FLUID. 2. SMALL LEFT PLEURAL EFFUSION. ATELECTASIS IN THE LUNG BASES. 3. NO OTHER SIGNIFICANT OR ACUTE FINDING IN THE ABDOMEN OR PELVIS ON CT SCAN WITH IV CONTRAST. Assessment and Plan - Diagnosis (1) Acute pancreatitis Qualifiers: Pancreatitis type: biliary Acute pancreatitis complication: no infection or necrosis Qualified Code(s): K85.10 - Biliary acute pancreatitis without necrosis or infection Is this a current diagnosis for this admission?: Yes Plan: Abdominal ultrasound did show evidence of dilated gallbladder with sludge as well as mild CBD dilation. No evidence of cholestasis on CMP. Evaluated by surgery and plan is for cholecystectomy tomorrow to help prevent recurrence of pancreatitis should this common bile duct sludge be contributing to an obstructive etiology. Procedure will be performed tomorrow. Lipase has trended down significantly. Patient's abdomen is still quite tender for abdominal CT today does not show any evidence of other etiology besides pancreatitis. We will continue with IV Dilaudid and IV fluids (2) Hepatic steatosis Is this a current diagnosis for this admission?: Yes Plan: Noted on abdominal ultrasound. Low-cholesterol diet once back on p.o.'s (3) Constipation Is this a current diagnosis for this admission?: Yes Plan: Still yet to have bowel movements since Thursday. Will give a dose of Dulcolax. Continue MiraLAX. - Time Time Spent with patient: Less than 15 minutes
[2020-03-06] MEDS: LORAZEPAM 1 MG TABLET PO PRN ×2 (14:21→22:36)
--- NOTE | 2020-03-06 20:47 | PDOC PROGRESS REPORT ---
Subjective Progress Note for:: 03/06/20 Subjective:: Abdominal pains getting a lot better however. Patient is hungry. Reason For Visit: ACUTE ABDOMINAL PAIN,PANCRETITIS,CONSTIPATION, Physical Exam Vital Signs: Temp Pulse Resp BP Pulse Ox 98.6 F 100 18 153/74 H 97 03/06/20 19:25 03/06/20 19:25 03/06/20 19:25 03/06/20 19:25 03/06/20 19:25 Intake & Output 03/05/20 03/06/20 03/07/20 06:59 06:59 06:59 Intake Total 3000 3973 1380 Balance 3000 3973 1380 Weight 70.7 kg 70.7 kg Exam: Abdomen is soft mild upper abdominal tenderness. Results Laboratory Results: 03/06/20 05:05 03/06/20 05:05 03/06/20 03/06/20 05:05 05:05 WBC 13.4 H RBC 3.35 L Hgb 10.3 L Hct 30.2 L MCV 90 MCH 30.8 MCHC 34.2 RDW 12.9 Plt Count 279 Seg Neutrophils % 83.4 H Sodium 135.4 L Potassium 3.9 Chloride 103 Carbon Dioxide 26 Anion Gap 6 BUN 9 Creatinine 0.70 Est GFR ( Amer) > 60 Glucose 121 H Calcium 8.5 Total Bilirubin 0.4 AST 88 H Alkaline Phosphatase 148 H Total Protein 5.7 L Albumin 3.2 L Amylase 311 H Lipase 611.8 H 03/03/20 16:27 Creatine Kinase 117 Impressions: Acute Abdomen Series 03/03/20 15:28 IMPRESSION: Large amount of stool in the ascending colon Abdomen Ultrasound 03/03/20 18:13 IMPRESSION: 1. The gallbladder is distended and contains sludge. Possible intrahepatic biliary dilatation. 2. Trace ascites of uncertain origin. 3. Fatty infiltration of the liver. KUB X-Ray 03/05/20 07:00 IMPRESSION: The amount of fecal material in the colon has decreased since 03/03/2020. There are no dilated loops of bowel. Abdomen/Pelvis CT 03/06/20 07:00 IMPRESSION: 1. INFLAMMATORY CHANGES AND FLUID IN THE PERIPANCREATIC TISSUES CONSISTENT WITH ACUTE PANCREATITIS. SMALL AMOUNT OF FREE FLUID. 2. SMALL LEFT PLEURAL EFFUSION. ATELECTASIS IN THE LUNG BASES. 3. NO OTHER SIGNIFICANT OR ACUTE FINDING IN THE ABDOMEN OR PELVIS ON CT SCAN WITH IV CONTRAST. Assessment & Plan - Diagnosis (1) Abdominal pain Is this a current diagnosis for this admission?: Yes (2) Biliary acute pancreatitis Qualifiers: Acute pancreatitis complication: unspecified Qualified Code(s): K85.10 - Biliary acute pancreatitis without necrosis or infection Is this a current diagnosis for this admission?: Yes (3) Elevated lipase Is this a current diagnosis for this admission?: Yes (4) Pancreatitis Qualifiers: Chronicity: acute Is this a current diagnosis for this admission?: Yes - Time Critical Time spent with patient: 15-24 minutes - Inpatient Certification Medical Necessity: Need For IV Fluids, Need for Pain Control, Need for Surgery - Plan Summary Plan Summary: 34-year-old male admitted for gallstone pancreatitis 03/03/2020. Initially his lipase were elevated. Noted to have sludge in the gallbladder on ultrasound. He had a history of heavy alcohol abuse when he was in the several years ago but now just drinks occasionally. His lipase is gradually been coming down and this morning it was down to 611 from about 4000 yesterday. Clinically he feels a lot better with less tenderness in the abdomen. And CT scan of the abdomen today which showed pancreatitis. Patient for possible laparoscopic cholecystectomy tomorrow once is lipase continues to come down.
--- NOTE | 2020-03-06 20:56 | PDOC PROGRESS REPORT ---
Subjective Reason For Visit: ACUTE ABDOMINAL PAIN,PANCRETITIS,CONSTIPATION, Physical Exam Vital Signs: Temp Pulse Resp BP Pulse Ox 98.6 F 100 18 153/74 H 97 03/06/20 19:25 03/06/20 19:25 03/06/20 19:25 03/06/20 19:25 03/06/20 19:25 Intake & Output 03/05/20 03/06/20 03/07/20 06:59 06:59 06:59 Intake Total 3000 3973 1380 Balance 3000 3973 1380 Weight 70.7 kg 70.7 kg Results Laboratory Results: 03/06/20 05:05 03/06/20 05:05 03/06/20 03/06/20 05:05 05:05 WBC 13.4 H RBC 3.35 L Hgb 10.3 L Hct 30.2 L MCV 90 MCH 30.8 MCHC 34.2 RDW 12.9 Plt Count 279 Seg Neutrophils % 83.4 H Sodium 135.4 L Potassium 3.9 Chloride 103 Carbon Dioxide 26 Anion Gap 6 BUN 9 Creatinine 0.70 Est GFR ( Amer) > 60 Glucose 121 H Calcium 8.5 Total Bilirubin 0.4 AST 88 H Alkaline Phosphatase 148 H Total Protein 5.7 L Albumin 3.2 L Amylase 311 H Lipase 611.8 H 03/03/20 16:27 Creatine Kinase 117 Impressions: Acute Abdomen Series 03/03/20 15:28 IMPRESSION: Large amount of stool in the ascending colon Abdomen Ultrasound 03/03/20 18:13 IMPRESSION: 1. The gallbladder is distended and contains sludge. Possible intrahepatic biliary dilatation. 2. Trace ascites of uncertain origin. 3. Fatty infiltration of the liver. KUB X-Ray 03/05/20 07:00 IMPRESSION: The amount of fecal material in the colon has decreased since 03/03/2020. There are no dilated loops of bowel. Abdomen/Pelvis CT 03/06/20 07:00 IMPRESSION: 1. INFLAMMATORY CHANGES AND FLUID IN THE PERIPANCREATIC TISSUES CONSISTENT WITH ACUTE PANCREATITIS. SMALL AMOUNT OF FREE FLUID. 2. SMALL LEFT PLEURAL EFFUSION. ATELECTASIS IN THE LUNG BASES. 3. NO OTHER SIGNIFICANT OR ACUTE FINDING IN THE ABDOMEN OR PELVIS ON CT SCAN WITH IV CONTRAST. Assessment & Plan - Diagnosis (1) Abdominal pain Is this a current diagnosis for this admission?: Yes (2) Biliary acute pancreatitis Qualifiers: Acute pancreatitis complication: unspecified Qualified Code(s): K85.10 - Biliary acute pancreatitis without necrosis or infection Is this a current diagnosis for this admission?: Yes (3) Elevated lipase Is this a current diagnosis for this admission?: Yes (4) Pancreatitis Qualifiers: Chronicity: acute Is this a current diagnosis for this admission?: Yes - Plan Summary Plan Summary: 34-year-old male admitted for gallstone pancreatitis 03/03/2020. Initially his lipase were elevated. Noted to have sludge in the gallbladder on ultrasound. He had a history of heavy alcohol abuse when he was in the several years ago but now just drinks occasionally. His lipase is gradually been coming down and this morning it was down to 611 from about 4000 yesterday. Clinically he feels a lot better with less tenderness in the abdomen. And CT scan of the abdomen today which showed pancreatitis. Patient for possible laparoscopic cholecystectomy tomorrow once lipase continues to come down.
[2020-03-07] MEDS: TEMAZEPAM 7.5 MG CAPSULE PO PRN (00:45)
[2020-03-07] MEDS: HYDROMORPHONE HCL INJ/PF 2 MG/ML AMPULE IV PRN ×6 (00:45→11:13)
[2020-03-07] MEDS: DEXTROSE 5%-NORMAL SALINE 1,000 ML IV PRN ×2 (04:44→11:14)
[2020-03-07] MEDS ORDERED: GLYCOPYRROLATE 1 MG/5 ML VIAL ONE (05:00)
[2020-03-07] MEDS ORDERED: ONDANSETRON HCL INJ/PF 4 MG/2 ML SDV ONE (05:00)
[2020-03-07] MEDS ORDERED: KETOROLAC TROMETHAMINE 60 MG/2 ML SDV ONE (05:00)
[2020-03-07] MEDS ORDERED: ROCURONIUM BROMIDE INJ 50 MG/5 ML VIAL IV ONE (05:00)
[2020-03-07] MEDS ORDERED: NEOSTIGMINE METHYLSULFATE 10 MG/10 ML VIAL ONE (05:00)
[2020-03-07] MEDS ORDERED: SUCCINYLCHOLINE CHLORIDE INJ 200 MG/10 ML VIAL ONE (05:00)
[2020-03-07] MEDS ORDERED: DEXAMETHASONE SOD PHOSPHATE INJ 4 MG/1 ML VIAL ONE (05:00)
[2020-03-07] MEDS: POLYETHYLENE GLYCOL 3350 POWDER 17 GM/1 PACKET PO SCH (09:05)
[2020-03-07] MEDS: ENOXAPARIN SODIUM INJ 40 MG/0.4 ML DISP.SYRIN SUBCUT SCH (09:06)
[2020-03-07] MEDS: FAMOTIDINE INJ/PF 20 MG/2 ML SDV IV SCH (09:06)
[2020-03-07] MEDS: NICOTINE 14 MG/24 HR PATCH.TD24 TD SCH (09:06)
[2020-03-07 09:55] LABS: ABSOLUTE EOSINOPHILS # (AUTO) 0.1 10^3/uL (0.0-0.6); ABSOLUTE LYMPHOCYTES (AUTO) 0.8 10^3/uL (0.5-4.7); ABSOLUTE MONOCYTES (AUTO) 0.9 10^3/uL (0.1-1.4); BASOPHILS % (AUTO) 0.1 % (0-2); EOSINOPHILS % (AUTO) 0.5 % (0-6); HEMATOCRIT 28.6 % (37.9-51.0); HEMOGLOBIN 9.7 g/dL (13.5-17.0); LYMPHOCYTES % (AUTO) 6.5 % (13-45); MEAN CORPUSCULAR HEMOGLOBIN 30.3 pg (27.0-33.4); MEAN CORPUSCULAR HGB CONC 33.7 g/dL (32.0-36.0); MEAN CORPUSCULAR VOLUME 90 fl (80-97); PLATELET COUNT 297 10^3/uL (150-450); RED BLOOD COUNT 3.18 10^6/uL (4.35-5.55); RED CELL DISTRIBUTION WIDTH 12.7 % (11.5-14.0); SEGMENTED NEUTROPHILS % (AUTO) 84.9 % (42-78); TOTAL CELLS COUNTED % (AUTO) 100 %; WHITE BLOOD COUNT 11.8 10^3/uL (4.0-10.5)
[2020-03-07 10:16] LABS: ALKALINE PHOSPHATASE 303 U/L (38-126); ANION GAP 7 (5-19); ASPARTATE AMINO TRANSFERASE 363 U/L (17-59); BILIRUBIN,DIRECT 0.3 mg/dL (0.0-0.4); BILIRUBIN,TOTAL 0.6 mg/dL (0.2-1.3); BLOOD UREA NITROGEN 11 mg/dL (7-20); CALCIUM 8.1 mg/dL (8.4-10.2); CARBON DIOXIDE 25 mmol/L (22-30); CHLORIDE 104 mmol/L (98-107); GLUCOSE 117 mg/dL (75-110); POTASSIUM 3.6 mmol/L (3.6-5.0); TOTAL PROTEIN 5.6 g/dL (6.3-8.2)
[2020-03-07] MEDS ORDERED: FENTANYL CITRATE INJ/PF 100 MCG/2 ML AMPUL ONE ×2 (14:10→16:38)
[2020-03-07] MEDS ORDERED: PROPOFOL INJ 200 MG/20 ML VIAL IV ONE (14:11)
[2020-03-07] MEDS ORDERED: MIDAZOLAM 2 MG/2 ML INJ ONE (14:11)
[2020-03-07] MEDS ORDERED: CEFAZOLIN INJ 1 GM VIAL ONE (14:34)
[2020-03-07] MEDS ORDERED: HYDROMORPHONE HCL INJ/PF 2 MG/ML AMPULE ONE (14:34)
[2020-03-07] MEDS ORDERED: METRONIDAZOLE 500 MG/NS RTU 500 MG/100 ML RTUPB IV ONE (14:48)
[2020-03-07] MEDS ORDERED: DIPHENHYDRAMINE HCL 50 MG/ML VIAL IV PRN (15:13)
[2020-03-07] MEDS ORDERED: PROMETHAZINE HCL INJ 25 MG/1 ML VIAL IV PRN (15:13)
[2020-03-07] MEDS ORDERED: MEPERIDINE HCL/PF INJ 25 MG/1 ML DISP.SYRIN IV PRN (15:13)
[2020-03-07] MEDS ORDERED: MORPHINE SULFATE 10 MG/ML INJ IV PRN (15:13)
[2020-03-07] MEDS ORDERED: FENTANYL CITRATE INJ/PF 100 MCG/2 ML AMPUL IV PRN ×3 (15:13)
[2020-03-07] MEDS ORDERED: BUPIVACAINE INJ/PF LIPOSOME/PF 266 MG/20 ML SDV ONE (15:16)
--- NOTE | 2020-03-07 16:02 | RADIOLOGY REPORT (SQ) ---
EXAM DESCRIPTION: CHOLANGIOGRAM OPERATIVE; NO CHG FLUORO IMAGES COMPLETED DATE/TIME: 03/07/2020 3:48 pm REASON FOR STUDY: IOC COMPARISON: None. FLUOROSCOPY TIME: 0.4 minutes 4 images saved to PACS. TECHNIQUE: Cinegraphic images were obtained from an intraoperative cholangiogram. LIMITATIONS: None. FINDINGS: There is opacification of the bile ducts, cystic duct remnants and second portion of the d uodenum without evidence of fixed filling defect or significant extravasation. Dilation of the CBD w ith smooth tapered narrowing distally. Please see operative report for detailed description. IMPRESSION: INTRAOPERATIVE CHOLANGIOGRAM. COMMENT: Quality ID 145: Final reports for procedures using fluoroscopy that document radiation exp osure indices, or exposure time and number of fluorographic images (if radiation exposure indices are not available) TECHNICAL DOCUMENTATION: JOB ID: [id number] 2010 [employer]- All Rights Reserved Reading location - IP/workstation name: [email or web address]
--- NOTE | 2020-03-07 16:02 | RADIOLOGY REPORT (SQ) ---
EXAM DESCRIPTION: CHOLANGIOGRAM OPERATIVE; NO CHG FLUORO IMAGES COMPLETED DATE/TIME: 03/07/2020 3:48 pm REASON FOR STUDY: IOC COMPARISON: None. FLUOROSCOPY TIME: 0.4 minutes 4 images saved to PACS. TECHNIQUE: Cinegraphic images were obtained from an intraoperative cholangiogram. LIMITATIONS: None. FINDINGS: There is opacification of the bile ducts, cystic duct remnants and second portion of the d uodenum without evidence of fixed filling defect or significant extravasation. Dilation of the CBD w ith smooth tapered narrowing distally. Please see operative report for detailed description. IMPRESSION: INTRAOPERATIVE CHOLANGIOGRAM. COMMENT: Quality ID 145: Final reports for procedures using fluoroscopy that document radiation exp osure indices, or exposure time and number of fluorographic images (if radiation exposure indices are not available) TECHNICAL DOCUMENTATION: JOB ID: [id number] 2010 [employer]- All Rights Reserved Reading location - IP/workstation name: [email or web address]
--- NOTE | 2020-03-07 16:15 | PDOC PROGRESS REPORT ---
Subjective Progress Note for:: 03/07/20 Subjective:: Patient states the abdominal pain is improved. Not yet had bowel movement still. Reason For Visit: ACUTE ABDOMINAL PAIN,PANCRETITIS,CONSTIPATION, Physical Exam Vital Signs: Temp Pulse Resp BP Pulse Ox 99.5 F 86 17 141/75 H 99 03/07/20 13:30 03/07/20 13:30 03/07/20 13:30 03/07/20 13:30 03/07/20 13:30 Intake & Output 03/06/20 03/07/20 03/08/20 06:59 06:59 06:59 Intake Total 3973 3343 975 Balance 3973 3343 975 Weight 70.7 kg 70.7 kg General appearance: PRESENT: no acute distress, cooperative Neck exam: ABSENT: JVD Respiratory exam: PRESENT: clear to auscultation luis felipe, unlabored. ABSENT: tachypnea, wheezes Cardiovascular exam: PRESENT: RRR, +S1, +S2. ABSENT: tachycardia GI/Abdominal exam: PRESENT: guarding, soft, tenderness. ABSENT: distended, rebound, rigid Neurological exam: PRESENT: alert, awake, oriented to person, oriented to place, oriented to time Results Laboratory Results: 03/07/20 09:11 03/07/20 09:11 03/07/20 03/07/20 09:11 09:11 WBC 11.8 H RBC 3.18 L Hgb 9.7 L Hct 28.6 L MCV 90 MCH 30.3 MCHC 33.7 RDW 12.7 Plt Count 297 Seg Neutrophils % 84.9 H Sodium 135.7 L Potassium 3.6 Chloride 104 Carbon Dioxide 25 Anion Gap 7 BUN 11 Creatinine 0.58 Est GFR ( Amer) > 60 Glucose 117 H Calcium 8.1 L Total Bilirubin 0.6 AST 363 H Alkaline Phosphatase 303 H Total Protein 5.6 L Albumin 3.0 L Lipase 244.7 03/03/20 16:27 Creatine Kinase 117 Impressions: Acute Abdomen Series 03/03/20 15:28 IMPRESSION: Large amount of stool in the ascending colon Abdomen Ultrasound 03/03/20 18:13 IMPRESSION: 1. The gallbladder is distended and contains sludge. Possible intrahepatic biliary dilatation. 2. Trace ascites of uncertain origin. 3. Fatty infiltration of the liver. KUB X-Ray 03/05/20 07:00 IMPRESSION: The amount of fecal material in the colon has decreased since 03/03/2020. There are no dilated loops of bowel. Abdomen/Pelvis CT 03/06/20 07:00 IMPRESSION: 1. INFLAMMATORY CHANGES AND FLUID IN THE PERIPANCREATIC TISSUES CONSISTENT WITH ACUTE PANCREATITIS. SMALL AMOUNT OF FREE FLUID. 2. SMALL LEFT PLEURAL EFFUSION. ATELECTASIS IN THE LUNG BASES. 3. NO OTHER SIGNIFICANT OR ACUTE FINDING IN THE ABDOMEN OR PELVIS ON CT SCAN WITH IV CONTRAST. Cholangiogram 03/07/20 00:00 IMPRESSION: INTRAOPERATIVE CHOLANGIOGRAM. Fluoroscopy 03/07/20 00:00 IMPRESSION: INTRAOPERATIVE CHOLANGIOGRAM. Assessment and Plan - Diagnosis (1) Acute pancreatitis Qualifiers: Pancreatitis type: biliary Acute pancreatitis complication: no infection or necrosis Qualified Code(s): K85.10 - Biliary acute pancreatitis without necrosis or infection Is this a current diagnosis for this admission?: Yes Plan: Abdominal ultrasound did show evidence of dilated gallbladder with sludge as well as mild CBD dilation. No evidence of cholestasis on CMP. Evaluated by surgery and plan is for cholecystectomy tomorrow to help prevent recurrence of pancreatitis should this common bile duct sludge be contributing to an obstructive etiology. Procedure will be performed tomorrow. Lipase has trended down significantly. Patient's abdomen is still quite tender for abdominal CT today does not show any evidence of other etiology besides pancreatitis. We will continue with IV Dilaudid and IV fluids 03/07/2020 Patient's abdominal pain has improved. Maintain patient on IV fluids and pain medications. Patient's is taken to the OR today for cholecystectomy. We will keep n.p.o. until procedure is done. After procedure is done can start patient on liquid diet and began to slowly advance diet as tolerated. (2) Hepatic steatosis Is this a current diagnosis for this admission?: Yes Plan: Noted on abdominal ultrasound. Low-cholesterol diet once back on p.o.'s (3) Constipation Is this a current diagnosis for this admission?: Yes Plan: Bowel regimen. - Time Time Spent with patient: Less than 15 minutes
--- NOTE | 2020-03-07 16:20 | Operative Report ---
Nonrecallable Operative Report DATE OF SURGERY: 03/07/20 PREOPERATIVE DIAGNOSIS: gallstone pancratitis POSTOPERATIVE DIAGNOSIS: gallstone pancreatitis OPERATION: laparoscopic cholecystectomy SURGEON: CHAD JONES ANESTHESIA: GA TISSUE REMOVED OR ALTERED: gallbladder COMPLICATIONS: none INTRAOPERATIVE FINDINGS: 25cc. PROCEDURE: After obtaining informed consent, the patient was taken to the operating room. General Anesthesia was induced; the arms were extended, and the abdomen was exposed, and prepped and draped in a sterile fashion. Instrumentation was set up for laparoscopic cholecystectomy. Surgical plan and surgical timeout were conducted. A vertical incision was made above the umbilicus, and a verres needle was inserted uneventfully into the peritoneal cavity. Pneumoperitoneum was established. The verres needle was removed and a 10 mm trocar was inserted and a 10 mm laparoscope was inserted. Visualization of the peritoneal cavity confirmed safe uneventful entry. Under direct visualization 3 additional 5 mm ports were established, one in the subxiphoid position and second in the subcostal position. Visualization of the hepatobiliary anatomy revealed no anatomic variations. A grasper was placed on the fundus of the gallbladder and the gallbladder is elevated over the right surface of the liver; a second grasper was used to grasp the infundibulum of the gallbladder. The neck of the gallbladder and junction with the cystic duct was dissected out. The Cystic artery was in its usual location medial and cephalad to the cystic duct. The cystic artery was surrounded with a right angle clamp, clipped twice proximally and divided with laparoscopic scissors. We now opened the triangle of Calot by dividing the peritoneal reflection on both the medial and lateral sides of the cystic duct infundibular junction. The critical view was obtained. We now milked the cystic duct of any possible stones, clipped the cystic duct on the gallbladder side and then performed a cystoscopy to cautery. The cholangiogram was then obtained by placing the cholangiocatheter into the cystic ductotomy and intraoperative cholangiogram showed a somewhat dilated common bile duct however it tapered down to normal and drain well into the duodenum with right and left hepatic duct seen and no st ones. The cystic duct was then divided after doubly ligating the stump site with 2 endoclips cystic artery was handled similarly The gallbladder was now removed from the undersurface of the liver using hook cautery dissection. Graspers were repositioned and the gallbladder was removed uneventfully from the abdominal cavity through the super umbilical port site incision. The specimen was examined, then passed off to pathology for permanent analysis. We returned to the peritoneal cavity check for bleeding, and evidence of bile leak, and there was none. We Confirmed satisfactory placement of clips on cystic duct and cystic artery were secured . At this point we felt the operation was complete. The subcutaneous tissue was then anesthetized with quarter percent Marcaine Sponge and needle counts are correct. All ports removed under direct visualization pneumoperitoneum evacuated, and 5 mm port wounds closed with 3-0 Vicryl suture, benzoin and Steri-Strips. The patient was extubated, and taken to the recovery room in stable condition.
--- NOTE | 2020-03-07 16:30 | PDOC DISCHARGE SUMMARY ---
General - Admit/Disc Date/PCP Admission Date/Primary Care Provider: 03/03/20 18:35 BENOIT SANDERS MD Discharge Date: 03/07/20 - Discharge Diagnosis Final Diagnosis: Gallstone pancreatitis - Additional Information Resuscitation Status: Full Code Discharge Diet: As Tolerated Discharge Activity: Activity As Tolerated - [id number], No Lifting Over 10 Pounds Referrals: [facility] [NO LOCAL MD] - Prescriptions: Hydrocodone/Acetaminophen [[place] 10-325 mg Tablet] 1 tab PO Q6HP PRN #20 tablet PRN Reason: Home Medications: Hydrocodone/Acetaminophen [[place] 10-325 mg Tablet] 1 tab PO Q6HP PRN #20 tablet 03/07/20 Additional Information: Okay to shower tomorrow leave Steri-Strips in place pat dry. Okay to resume a soft low-fat diet. Follow-up in surgical clinic with me in 7 to 10 days History of Present Illiness History of Present Illness: KEILA JIANG is a 34 year old male Physical Exam Vital Signs: Temp Pulse Resp BP Pulse Ox 99.5 F 86 17 141/75 H 99 03/07/20 13:30 03/07/20 13:30 03/07/20 13:30 03/07/20 13:30 03/07/20 13:30 Intake & Output 03/06/20 03/07/20 03/08/20 06:59 06:59 06:59 Intake Total 3973 3343 975 Balance 3973 3343 975 Weight 70.7 kg 70.7 kg Results Laboratory Results: WBC 11.8 10^3/uL (4.0-10.5) H 03/07/20 09:11 RBC 3.18 10^6/uL (4.35-5.55) L 03/07/20 09:11 Hgb 9.7 g/dL (13.5-17.0) L 03/07/20 09:11 Hct 28.6 % (37.9-51.0) L 03/07/20 09:11 MCV 90 fl (80-97) 03/07/20 09:11 MCH 30.3 pg (27.0-33.4) 03/07/20 09:11 MCHC 33.7 g/dL (32.0-36.0) 03/07/20 09:11 RDW 12.7 % (11.5-14.0) 03/07/20 09:11 Plt Count 297 10^3/uL (150-450) 03/07/20 09:11 Lymph % (Auto) 6.5 % (13-45) L 03/07/20 09:11 [place] % (Auto) 8.0 % (3-13) 03/07/20 09:11 Eos % (Auto) 0.5 % (0-6) 03/07/20 09:11 Baso % (Auto) 0.1 % (0-2) 03/07/20 09:11 Absolute Neuts (auto) 10.0 10^3/uL (1.7-8.2) H 03/07/20 09:11 Absolute Lymphs (auto) 0.8 10^3/uL (0.5-4.7) 03/07/20 09:11 Absolute Monos (auto) 0.9 10^3/uL (0.1-1.4) 03/07/20 09:11 Absolute Eos (auto) 0.1 10^3/uL (0.0-0.6) 03/07/20 09:11 Absolute Basos (auto) 0.0 10^3/uL (0.0-0.2) 03/07/20 09:11 Seg Neutrophils % 84.9 % (42-78) H 03/07/20 09:11 PT 12.3 SEC (11.4-15.4) 03/03/20 16:27 INR 0.92 03/03/20 16:27 APTT 31.5 SEC (23.5-35.8) 03/04/20 05:38 Sodium 135.7 mmol/L (137-145) L 03/07/20 09:11 Potassium 3.6 mmol/L (3.6-5.0) 03/07/20 09:11 Chloride 104 mmol/L (98-107) 03/07/20 09:11 Carbon Dioxide 25 mmol/L (22-30) 03/07/20 09:11 Anion Gap 7 (5-19) 03/07/20 09:11 BUN 11 mg/dL (7-20) 03/07/20 09:11 Creatinine 0.58 mg/dL (0.52-1.25) 03/07/20 09:11 Est GFR ( Amer) > 60 (>60) 03/07/20 09:11 Est GFR (MDRD) Non-Af > 60 (>60) 03/07/20 09:11 Glucose 117 mg/dL (75-110) H 03/07/20 09:11 Calcium 8.1 mg/dL (8.4-10.2) L 03/07/20 09:11 Magnesium 1.7 mg/dL (1.6-2.3) 03/04/20 05:38 Total Bilirubin 0.6 mg/dL (0.2-1.3) 03/07/20 09:11 Direct Bilirubin 0.3 mg/dL (0.0-0.4) 03/07/20 09:11 Neonat Total Bilirubin Not Reportable 03/07/20 09:11 Neonat Direct Bilirubin Not Reportable 03/07/20 09:11 Neonat Indirect Bili Not Reportable 03/07/20 09:11 AST 363 U/L (17-59) H 03/07/20 09:11 ALT 337 U/L (<50) H 03/07/20 09:11 Alkaline Phosphatase 303 U/L (38-126) H 03/07/20 09:11 Ammonia 21.8 umol/L (9-33) 03/03/20 21:20 Creatine Kinase 117 U/L (55-170) 03/03/20 16:27 C-Reactive Protein 6.5 mg/L (<10.0) 03/03/20 16:27 Total Protein 5.6 g/dL (6.3-8.2) L 03/07/20 09:11 Albumin 3.0 g/dL (3.5-5.0) L 03/07/20 09:11 Triglycerides 74 mg/dL (<150) 03/03/20 21:20 Cholesterol 192.98 mg/dL (0-200) 03/03/20 21:20 LDL Cholesterol Direct 110 mg/dL (<100) H 03/03/20 21:20 VLDL Cholesterol 15.0 mg/dL (10-31) 03/03/20 21:20 HDL Cholesterol 76 mg/dL (>40) 03/03/20 21:20 Amylase 311 U/L (30-110) H 03/06/20 05:05 Lipase 244.7 U/L (23-300) 03/07/20 09:11 TSH 1.08 uIU/mL (0.47-4.68) 03/03/20 16: Free T3 pg/mL 3.36 pg/mL (2.77-5.27) 03/03/20 21:20 Urine Color YELLOW 03/03/20 16:27 Urine Appearance CLEAR 03/03/20 16:27 Urine pH 5.0 (5.0-9.0) 03/03/20 16:27 Ur Specific [place] 1.024 03/03/20 16:27 Urine Protein NEGATIVE mg/dL (NEGATIVE) 03/03/20 16:27 Urine Glucose (UA) NEGATIVE mg/dL (NEGATIVE) 03/03/20 16: Urine Ketones TRACE mg/dL (NEGATIVE) H 03/03/20 16:27 Urine Blood NEGATIVE (NEGATIVE) 03/03/20 16:27 Urine Nitrite NEGATIVE (NEGATIVE) 03/03/20 16:27 Urine Bilirubin NEGATIVE (NEGATIVE) 03/03/20 16:27 Urine Urobilinogen NEGATIVE mg/dL (<2.0) 03/03/20 16:27 Ur Leukocyte Esterase NEGATIVE (NEGATIVE) 03/03/20 16:27 Urine WBC (Auto) 0 /HPF 03/03/20 16:27 Urine RBC (Auto) 1 /HPF 03/03/20 16:27 Squamous Epi Cells Auto <1 /HPF 03/03/20 16:27 Urine Ascorbic Acid 40 (NEGATIVE) H 03/03/20 16:27 COVID-19 Source Cancelled 03/03/20 23:00 COVID-19 ([facility]) Cancelled 03/03/20 23:00 Hepatitis A IgM Ab Negative (Negative) 03/03/20 16:27 Hep Bs Antigen Negative (Negative) 03/03/20 16:27 Hep B Core IgM Ab Negative (Negative) 03/03/20 16:27 Hepatitis C Antibody <0.1 s/co ratio (0.0-0.9) 03/03/20 16:27 SARS-CoV-2 (PCR) NEGATIVE (NEGATIVE) 03/03/20 23:00 Impressions: Acute Abdomen Series 03/03/20 15:28 IMPRESSION: Large amount of stool in the ascending colon Abdomen/Pelvis CT 03/03/20 17:00 IMPRESSION: 1. Small amount of ascites in the abdomen and pelvis, nonspecific however could be seen with infectious or inflammatory process. 2. Moderate hepatomegaly with mild hepatic steatosis. Finding could be seen with acute hepatitis. Clinical correlation. 3. Large amount of stool throughout the colon which can be seen with const ipation. Abdomen Ultrasound 03/03/20 18:13 IMPRESSION: 1. The gallbladder is distended and contains sludge. Possible intrahepatic biliary dilatation. 2. Trace ascites of uncertain origin. 3. Fatty infiltration of the liver. KUB X-Ray 03/05/20 07:00 IMPRESSION: The amount of fecal material in the colon has decreased since 03/03/2020. There are no dilated loops of bowel. Abdomen/Pelvis CT 03/06/20 07:00 IMPRESSION: 1. INFLAMMATORY CHANGES AND FLUID IN THE PERIPANCREATIC TISSUES CONSISTENT WITH ACUTE PANCREATITIS. SMALL AMOUNT OF FREE FLUID. 2. SMALL LEFT PLEURAL EFFUSION. ATELECTASIS IN THE LUNG BASES. 3. NO OTHER SIGNIFICANT OR ACUTE FINDING IN THE ABDOMEN OR PELVIS ON CT SCAN WITH IV CONTRAST. Cholangiogram 03/07/20 00:00 IMPRESSION: INTRAOPERATIVE CHOLANGIOGRAM. Fluoroscopy 03/07/20 00:00
[2020-03-07] MEDS ORDERED: HYDROCODONE/ACETAMINOPHEN 10-325 MG TABLET PO PRN (17:35)
[2020-03-07 18:20] VITALS: BP 143/74
== END 2020-03-07 19:14 | disposition home or self-care (01) | DRG 418 ==
LOC: ER 14:59 → EH 18:35 → 4W 20:35
PROVIDERS: ADMIT Hospitalist; ATTEND Internal Medicine
PROC: 0FT44ZZ Resection of Gallbladder, Percutaneous Endoscopic Approach (ICD-10-PCS; principal; 2020-03-07 18:30)
DX: K85.10 Biliary acute pancreatitis without necrosis or infection (principal); K35.80 Unspecified acute appendicitis; K59.00 Constipation, unspecified; R16.0 Hepatomegaly, not elsewhere classified; K76.0 Fatty (change of) liver, not elsewhere classified; F17.210 Nicotine dependence, cigarettes, uncomplicated; Z03.818 Encounter for observation for suspected exposure to other biological agents ruled out
CPT/HCPCS: 36415; 74018; 74022; 74177; 74300; 76705; 790; 80053; 80061; 80074; 81001; 82140; 82150; 82550; 83690; 83735; 84443; 84481; 85025; 85610; 85730; 86140; 87635; 88304; 93005; 93010; 96374; 96375; 99285; C9290; C9803; J0330; J0690; J1100; J1170; J1650; J1885; J2250; J2270; J2405; J2704; J2710; J3010; J3490; J7042; Q9967; S0028

== ENCOUNTER 2020-05-25 23:35 | Inpatient (IN) | payer OTHER ==
[2020-05-25] MEDS ORDERED: HYDROCODONE/ACETAMINOPHEN 5-325 MG TABLET PO ONE (23:53)
--- NOTE | 2020-05-25 23:53 | ER Document Report ---
ED Medical Screen (RME) - General Stated Complaint: CHEST PAIN Time Seen by Provider: 05/25/20 23:46 Primary Care Provider: BENOIT SANDERS MD [Primary Care Provider] - Follow up as needed Mode of Arrival: Wheelchair Information source: Patient Notes: HPI; 34-year-old male presents to the emergency room complaining of worsening abdominal pain that started earlier today that radiates into his left chest and left shoulder. Patient states he had a cholecystectomy 2 months ago at that time was diagnosed with pancreatitis was hospitalized for a week. States is not any problems until today. He denies any nausea or vomiting. Complains of diaphoresis. Tried taking Tums without relief. No other medications for symptoms. PE: Alert and oriented x3. Lungs: Clear to auscultation without rales, rhonchi, wheezes. Heart: Tachycardic without murmurs, rubs, gallops. Moderate distress noted. I have greeted and performed a rapid initial assessment of this patient. A comprehensive ED assessment and evaluation of the patient, analysis of test results and completion of the medical decision making process will be conducted by additional ED providers. I have specifically instructed the patient or family members with the patient to immediately return to any nursing staff should anything change in the patient's condition or with their chief complaint. TRAVEL OUTSIDE OF THE [place] IN LAST 30 DAYS: No - Related Data Allergies/Adverse Reactions: No Known Allergies Allergy (Unverified 03/04/20 23:25) Past Medical History Renal/ Medical History: Denies: Hx Peritoneal Dialysis Psychiatric Medical History: Denies: Hx Depression Past Surgical History: Reports: Hx Appendectomy Doctor's Discharge - Discharge Referrals: BENOIT SANDERS MD [Primary Care Provider] - Follow up as needed
--- NOTE | 2020-05-26 00:46 | RADIOLOGY REPORT (SQ) ---
EXAM DESCRIPTION: XR CHEST 2 VIEWS COMPLETED DATE/TME: 05/25/2020 23:50 CLINICAL HISTORY: 34 years, Male, chest pain COMPARISON: March 03, 2020 NUMBER OF VIEWS: 2 TECHNIQUE: Upright PA and lateral views the chest were obtained LIMITATIONS: None. FINDINGS: The heart size is within normal limits. Lungs are clear. There is no evidence of pleural effusion or pneumothorax. No significant bony finding. IMPRESSION: No acute abnormality as above. copyright 2010 [employer]- All Rights Reserved
[2020-05-26] MEDS ORDERED: ONDANSETRON HCL INJ/PF 4 MG/2 ML SDV IV ONE (02:59)
[2020-05-26] MEDS ORDERED: MORPHINE SULFATE 10 MG/ML INJ IV ONE (02:59)
[2020-05-26] MEDS ORDERED: NORMAL SALINE 1000 ML 1,000 ML IV ONE ×2 (03:01→04:07)
--- NOTE | 2020-05-26 03:03 | ER Document Report ---
ED GI/ - General Chief Complaint: Chest Pain Stated Complaint: CHEST PAIN Time Seen by Provider: 05/25/20 23:46 Mode of Arrival: Wheelchair Notes: Patient is a 34-year-old male that comes emergency department for chief complaint of sharp worsening abdominal pain that started in the afternoon. He states pain is in the middle and left side of his abdomen and going around to the back and then up into the chest and even into the shoulder. Patient denies nausea or vomiting but states he broke out into a sweat with the pain. He denies fever/chills, difficulty breathing, dizziness. Patient tried taking Tums at home without any improvement. Patient had a cholecystectomy 2 months ago and had gallstone pancreatitis that needed to resolve before the gallbladder could be taken out reportedly. He denies any surgeries otherwise except appendectomy. He denies any medical history otherwise. He denies smoking, alcohol, recreational drugs. TRAVEL OUTSIDE OF THE [place] IN LAST 30 DAYS: No - Related Data Allergies/Adverse Reactions: No Known Allergies Allergy (Unverified 03/04/20 23:25) Past Medical History - General Information source: Patient - Social History Smoking Status: Never Smoker Frequency of alcohol use: None Drug Abuse: None Lives with: Family Family History: Reviewed & Not Pertinent Patient has homicidal ideation: No Renal/ Medical History: Denies: Hx Peritoneal Dialysis Psychiatric Medical History: Denies: Hx Depression Past Surgical History: Reports: Hx Appendectomy, Hx Cholecystectomy - Immunizations Hx Diphtheria, Pertussis, Tetanus Vaccination: Yes Review of Systems - Review of Systems Constitutional: No symptoms reported EENT: No symptoms reported Cardiovascular: See HPI Respiratory: No symptoms reported Gastrointestinal: See HPI Genitourinary: No symptoms reported Male Genitourinary: No symptoms reported Musculoskeletal: No symptoms reported Skin: No symptoms reported Hematologic/Lymphatic: No symptoms reported Neurological/Psychological: No symptoms reported Physical Exam - Vital signs Vitals: Temp Pulse Resp BP Pulse Ox 98.1 F 82 16 130/76 H 98 05/25/20 23:36 05/25/20 23:36 05/25/20 23:36 05/25/20 23:36 05/25/20 23:36 - Notes Notes: GENERAL: Patient alert and interactive but appears to be in pain and is restless with difficulty holding still HEAD: Normocephalic, atraumatic. EYES: Pupils equal, round, and reactive to light. Extraocular movements intact. ENT: Oral mucosa moist, tongue midline. Oropharynx unremarkable. Airway patent. NECK: Full range of motion. Supple. Trachea midline. No lymphadenopathy. LUNGS: Clear to auscultation bilaterally, no wheezes, rales, or rhonchi. No respiratory distress. Non-tender chest wall. HEART: Regular rate and rhythm. No murmur ABDOMEN: Significant tenderness with some guarding in the generalized upper abdomen GENITOURINARY: Deferred EXTREMITIES: Moves all 4 extremities spontaneously. No edema, normal radial and dorsalis pedis pulses bilaterally. No cyanosis. BACK: no cervical, thoracic, lumbar midline tenderness. No saddle anesthesia, normal distal neurovascular exam. Moves all extremities in full range of motion. NEUROLOGICAL: Alert and oriented x3. Normal speech. Cranial nerves II through XII grossly intact. Strength 5/5 in all extremities. PSYCH: Normal affect, normal mood. SKIN: Warm, dry, normal turgor. No rashes or lesions noted. Course - Re-evaluation Re-evalutation: Patient with guarding in the upper abdomen generally, appears very uncomfortable, has difficulty holding still. Vital signs unremarkable except for some hypertension. CBC shows leukocytosis of 16,000 with elevation of neutrophils but no bandemia. Chemistry nonspecific. Lipase very elevated at greater than 10,000. CT was performed which shows acute pancreatitis with no abscess, cyst, or other concerning findings. On reevaluation patient still very uncomfortable despite the medications. Patient was remedicated and still was uncomfortable but somewhat improved. Discussed with patient and significant other, because of his significant pancreatitis and intractable pain will discuss with hospitalist for admission. Discussed with Dr. Cooper, hospitalist, patient accepted to medical floor full admission. - Vital Signs Vital signs: Temp Pulse Resp BP Pulse Ox 98.1 F 82 21 H 136/68 H 96 05/25/20 23:36 05/25/20 23:36 05/26/20 06:01 05/26/20 06:01 05/26/20 06:01 - Laboratory Result Diagrams: 05/26/20 02:52 05/26/20 02:52 Laboratory results interpreted by me: 05/26/20 05/26/20 02:52 02:52 WBC 16.0 H Lymph % (Auto) 5.4 L Absolute Neuts (auto) 14.4 H Seg Neutrophils % 89.8 H Glucose 146 H Lipase 36705.6 H Discharge - Discharge Clinical Impression: Epigastric abdominal pain, Intractable pain Acute pancreatitis Qualifiers: Pancreatitis type: other Acute pancreatitis complication: unspecified Qualified Code(s): K85.80 - Other acute pancreatitis without necrosis or infection Condition: Stable Disposition: ADMITTED INPATIENT Admitting Provider: Kenneth (Hospitalist) Unit Admitted: Medical Floor
[2020-05-26 03:09] LABS: ABSOLUTE LYMPHOCYTES (AUTO) 0.9 10^3/uL (0.5-4.7); ABSOLUTE MONOCYTES (AUTO) 0.7 10^3/uL (0.1-1.4); ABSOLUTE NEUT (AUTO) 14.4 10^3/uL (1.7-8.2); BASOPHILS % (AUTO) 0.2 % (0-2); EOSINOPHILS % (AUTO) 0.1 % (0-6); HEMATOCRIT 40.7 % (37.9-51.0); HEMOGLOBIN 13.7 g/dL (13.5-17.0); LYMPHOCYTES % (AUTO) 5.4 % (13-45); MEAN CORPUSCULAR HEMOGLOBIN 29.6 pg (27.0-33.4); MEAN CORPUSCULAR HGB CONC 33.6 g/dL (32.0-36.0); MEAN CORPUSCULAR VOLUME 88 fl (80-97); MONOCYTES % (AUTO) 4.5 % (3-13); PLATELET COUNT 393 10^3/uL (150-450); RED BLOOD COUNT 4.61 10^6/uL (4.35-5.55); RED CELL DISTRIBUTION WIDTH 13.1 % (11.5-14.0); SEGMENTED NEUTROPHILS % (AUTO) 89.8 % (42-78); TOTAL CELLS COUNTED % (AUTO) 100 %
[2020-05-26 03:24] LABS: ALBUMIN 4.7 g/dL (3.5-5.0); ALKALINE PHOSPHATASE 118 U/L (38-126); ANION GAP 9 (5-19); ASPARTATE AMINO TRANSFERASE 26 U/L (17-59); BILIRUBIN,DIRECT 0.4 mg/dL (0.0-0.4); BILIRUBIN,TOTAL 0.5 mg/dL (0.2-1.3); BLOOD UREA NITROGEN 12 mg/dL (7-20); CARBON DIOXIDE 29 mmol/L (22-30); CHLORIDE 101 mmol/L (98-107); CREATINE KINASE 75 U/L (55-170); GLUCOSE 146 mg/dL (75-110); POTASSIUM 4.6 mmol/L (3.6-5.0); TOTAL PROTEIN 7.4 g/dL (6.3-8.2)
[2020-05-26 03:56] LABS: APPEARANCE,URINE CLEAR; BILIRUBIN,URINE NEGATIVE (NEGATIVE); COLOR,URINE YELLOW; GLUCOSE, URINE NEGATIVE (NEGATIVE); KETONES,URINE NEGATIVE (NEGATIVE); LEUKOCYTE ESTERASE,URINE NEGATIVE (NEGATIVE); NITRITE,URINE NEGATIVE (NEGATIVE); PROTEIN,URINE NEGATIVE (NEGATIVE); UROBILINOGEN,URINE NEGATIVE mg/dL (<2.0)
--- NOTE | 2020-05-26 03:57 | RADIOLOGY REPORT (SQ) ---
EXAM DESCRIPTION: CT ABDOMEN PELVIS WITH IV CONTRAST COMPLETED DATE/TME: 05/25/2020 23:51 CLINICAL HISTORY: abdominal pain COMPARISON: 03/06/2020 TECHNIQUE: CT of the abdomen and pelvis performed following IV administration of . FINDINGS: Lung Bases: Minimal bibasilar dependent atelectasis. Bones: No destructive bone lesions identified. Abdomen: Liver: Dilation of the common bile duct measuring 1.1 cm without intrahepatic biliary dilatation. Gallbladder: Prior cholecystectomy. Spleen, Pancreas, and Adrenal Glands: Peripancreatic inflammatory change and small amount of free fluid. No well-circumscribed fluid collection. No evidence of pancreatic necrosis. Kidneys: No hydronephrosis or obstructing calculus. Vasculature: The aorta and IVC have normal caliber and position. The portal vein is patent. The proximal visceral and renal arteries are patent. Stomach: The stomach and duodenum have normal course. Other: No free intraperitoneal air. Small amount of free fluid. Pelvis: Bladder: Urinary bladder is unremarkable. Bowel: No dilated loops of large or small bowel. Large amount stool in the colon. Appendix: Not identified. Pelvis: Prostate is not enlarged. IMPRESSION: 1. Findings compatible with acute interstitial pancreatitis. 2. Large amount of stool. 3. Mild intrahepatic biliary dilatation with dilation of the common bile duct measuring 1.1 cm. This may be related to previous cholecystectomy. No obstructing lesion identified. This exam was performed according to our departmental dose-optimization program, which includes automated exposure control, adjustment of the mA and/or kV according to patient size and/or use of iterative reconstruction technique.
[2020-05-26] MEDS ORDERED: HYDROMORPHONE HCL INJ/PF 2 MG/ML AMPULE IV ONE (04:07)
[2020-05-26] MEDS ORDERED: PROMETHAZINE HCL INJ 25 MG/1 ML VIAL IV PRN (05:16)
[2020-05-26] MEDS ORDERED: RINGERS SOLUTION,LACTATED 1,000 ML IV PRN (05:16)
[2020-05-26] MEDS ORDERED: ACETAMINOPHEN 650 MG SUPP.RECT PR PRN (05:20)
[2020-05-26] MEDS ORDERED: METOPROLOL TARTRATE PF/INJ 5 MG/5 ML SDV IV PRN (05:20)
[2020-05-26] MEDS ORDERED: LORAZEPAM INJ 2 MG/1 ML VIAL IV PRN (05:20)
[2020-05-26] MEDS ORDERED: HYDROMORPHONE HCL INJ/PF 2 MG/ML AMPULE IV PRN ×4 (05:20→05:27)
[2020-05-26] MEDS: HYDROMORPHONE HCL INJ/PF 2 MG/ML AMPULE IV PRN ×6 (05:55→21:30)
[2020-05-26] MEDS: HEPARIN SOD (PORCINE) 5,000 UNIT/ML 1 ML VIAL SUBCUT SCH ×3 (06:18→21:32)
--- NOTE | 2020-05-26 07:04 | PDOC H&P ---
History of Present Illness Admission Date/PCP: 05/26/2020 04:59 [facility] Patient complains of: Abdominal pain History of Present Illness: KEILA JIANG is a 34 year old male who presented the emergency room with acute abdominal pain. He admits the gradual onset of a constant sharp boring pain in his mid and left upper abdomen radiating around and through the lower chest into the left subscapular area and then up into the left shoulder, becoming severe a few hours prior to his ER presentation. The pain has been accompanied by diaphoresis. He denies other associated or accompanying signs and symptoms. He tried taking oral antacids at home without improvement. He admits prior similar symptoms with his gallstone pancreatitis earlier this year. He has not identified any aggravating or ameliorating factors for his abdominal pain. In the emergency room he was found to have an elevated lipase and evidence of pancreatitis on his CT scan of the abdomen. He was subsequently ad [facility] for further evaluation and treatment. Past Medical History Cardiac Medical History: Denies: Coronary Artery Disease, Hyperlipidema, Hypertension Pulmonary Medical History: Denies: Asthma, Chronic Obstructive Pulmonary Disease (COPD) EENT Medical History: Denies: Cataracts, Ears - Hearing aids Neurological Medical History: Denies: Multiple Sclerosis, Seizures Endocrine Medical History: Denies: Diabetes Mellitus Type 1, Diabetes Mellitus Type 2, Hyperthyroidism, Hypothyroidism Malignancy Medical History: Reports: None GI Medical History: Reports: Other - Cholelithiasis, gallstone pancreatitis Denies: Cirrhosis, Crohn's Disease, Gastroesophageal Reflux Disease, Hepatitis, Peptic Ulcer Disease, Ulcerative Colitis Musculoskeltal Medical History: Denies: Arthritis, Gout Skin Medical History: Denies: Eczema, Psoriasis Psychiatric Medical History: Denies: Alcohol Dependency, Depression, Substance Abuse, Tobacco Dependency Traumatic Medical History: Reports: None Hematology: Denies: Anemia, Bleeding Tendencies Infectious Medical History: Reports: None Past Surgical History Past Surgical History: Reports: Appendectomy, Cholecystectomy Social History Information Source: Patient Lives with: Spouse/Significant other Smoking Status: Never Smoker Electronic Cigarette use?: No Frequency of Alcohol Use: Rare Hx Recreational Drug Use: No Drugs: None Hx Prescription Drug Abuse: No - Advance Directive Resuscitation Status: Full Code Surrogate healthcare decision maker:: Kimmy Palma Family History Family History: denies: CAD, DM, Hypertension, Malignancy Parental Family History Reviewed: Yes Children Family History Reviewed: No Sibling(s) Family History Reviewed.: Yes Medication/Allergy Home Medications: Hydrocodone/Acetaminophen [Miles 10-325 mg Tablet] 1 tab PO Q6HP PRN #20 tablet 03/07/20 Allergies/Adverse Reactions: No Known Allergies Allergy (Unverified 03/04/20 23:25) Review of Systems Constitutional: ABSENT: chills, fever(s) Eyes: ABSENT: visual disturbances, other - Eye pain Ears: ABSENT: hearing changes, other - Ear pain Nose, Mouth, and Throat: ABSENT: headache(s), sore throat Cardiovascular: ABSENT: chest pain, palpitations Respiratory: ABSENT: cough, dyspnea Gastrointestinal: PRESENT: as per HPI, abdominal pain. ABSENT: constipation, diarrhea, nausea, vomiting Genitourinary: ABSENT: dysuria, hematuria Musculoskeletal: ABSENT: back pain, joint swelling Integumentary: PRESENT: as per HPI, diaphoresis. ABSENT: pruritus, rash Neurological: ABSENT: confusion, convulsions, focal weakness, memory loss, syncope Psychiatric: ABSENT: anxiety, depression Endocrine: ABSENT: cold intolerance, heat intolerance Hematologic/Lymphatic: ABSENT: easy bleeding, easy bruising Allergic/Immunologic: ABSENT: seasonal rhinorrhea Physical Exam Vital Signs: Temp Pulse Resp BP Pulse Ox 98.1 F 82 19 153/86 H 99 05/25/20 23:36 05/25/20 23:36 05/26/20 04:40 05/26/20 04:40 05/26/20 04:40 Intake & Output 05/24/20 05/25/20 05/26/20 23:59 23:59 23:59 Intake Total 1000 Balance 1000 Weight 68.039 kg General appearance: PRESENT: cooperative, other - Appears in moderate distress due to abdominal pain Head exam: PRESENT: atraumatic, normocephalic Eye exam: PRESENT: conjunctiva pink. ABSENT: conjunctival injection, scleral icterus Ear exam: PRESENT: normal external ear exam. ABSENT: bleeding, drainage Mouth exam: PRESENT: dry mucosa, neck supple Neck exam: ABSENT: thyromegaly, tracheal deviation Respiratory exam: PRESENT: clear to auscultation luis felipe, symmetrical, unlabored Cardiovascular exam: PRESENT: RRR. ABSENT: clicks, gallop, rubs Pulses: PRESENT: normal radial pulses, normal dorsalis pedis pul Vascular exam: PRESENT: normal capillary refill. ABSENT: pallor GI/Abdominal exam: PRESENT: hypoactive bowel sounds, soft, tenderness - Moderate tenderness to deep palpation in the left upper abdomen Rectal exam: PRESENT: deferred Extremities exam: ABSENT: joint swelling, pedal edema Musculoskeletal exam: ABSENT: deformity, dislocation Neurological exam: PRESENT: alert, oriented to person, oriented to place, oriented to time, oriented to situation, CN II-XII grossly intact. ABSENT: motor sensory deficit Psychiatric exam: PRESENT: appropriate affect, normal mood Skin exam: PRESENT: dry, intact, warm. ABSENT: jaundice, rash, urticaria Results Laboratory Results: 05/26/20 02:52 05/26/20 02:52 05/26/20 05/26/20 05/26/20 02:52 02:52 03:38 WBC 16.0 H RBC 4.61 Hgb 13.7 Hct 40.7 MCV 88 MCH 29.6 MCHC 33.6 RDW 13.1 Plt Count 393 Seg Neutrophils % 89.8 H Sodium 138.5 Potassium 4.6 Chloride 101 Carbon Dioxide 29 Anion Gap 9 BUN 12 Creatinine 0.77 Est GFR ( Amer) > 60 Glucose 146 H Calcium 10.0 Total Bilirubin 0.5 AST 26 Alkaline Phosphatase 118 Total Protein 7.4 Albumin 4.7 Lipase 11755.6 H Urine Color YELLOW Urine Appearance CLEAR Urine pH 6.0 Ur Specific [place] 1.050 Urine Protein NEGATIVE Urine Glucose (UA) NEGATIVE Urine Ketones NEGATIVE Urine Blood NEGATIVE Urine Nitrite NEGATIVE Ur Leukocyte Esterase NEGATIVE Urine WBC (Auto) 1 Urine RBC (Auto) 1 05/26/20 05/26/20 02:52 02:52 Creatine Kinase 75 CK-MB (CK-2) Cancelled Troponin I < 0.012 Impressions: Chest X-Ray 05/25/20 23:50 IMPRESSION: No acute abnormality as above. copyright 2010 [employer]- All Rights Reserved Abdomen/Pelvis CT 05/25/20 23:51 IMPRESSION: 1. Findings compatible with acute interstitial pancreatitis. 2. Large amount of stool. 3. Mild intrahepatic biliary dilatation with dilation of the common bile duct measuring 1.1 cm. This may be related to previous cholecystectomy. No obstructing lesion identified. This exam was performed according to our departmental dose-optimization program, which includes automated exposure control, adjustment of the mA and/or kV according to patient size and/or use of iterative reconstruction technique. Assessment and Plan - Diagnosis (1) Acute recurrent pancreatitis Is this a current diagnosis for this admission?: Yes (2) Intractable abdominal pain Is this a current diagnosis for this admission?: Yes (3) Leukocytosis Qualifiers: Leukocytosis type: unspecified Qualified Code(s): D72.829 - Elevated white blood cell count, unspecified Is this a current diagnosis for this admission?: Yes (4) Diaphoresis Is this a current diagnosis for this admission?: Yes - Plan Summary Summary: Patient will be admitted to the medical floor he will receive routine supportive and symptomatic cares. He will be given IV fluids utilizing lactated Ringer solution at 167 mL/h. He will receive Dilaudid 0.5 to 2.0 mg IV every 3 hours as needed for pain. He will receive Ativan 1 mg IV every 4 hours as needed for anxiety or restlessness. He will be given a clear liquid diet as tolerated. CBCs, metabolic profiles and other laboratory and/or radiographic evaluations to be obtained as needed. Serial amylase and lipase levels will be ordered. - Time Time Spent with patient: 15-24 minutes Medications reviewed and adjusted accordingly: No - No home meds Anticipated Discharge Disposition: Home, Self Care Anticipated Discharge Timeframe: Undetermined - Inpatient Certification Based on my medical assessment, after consideration of the patient's comorbidities, presenting symptoms, or acuity I expect that the services needed warrant INPATIENT care.: Yes I certify that my determination is in accordance with my understanding of Medicare's requirements for reasonable and necessary INPATIENT services [42 CFR 412.3e].: Yes Medical Necessity: Need Close Monitoring Due to Risk of Patient Decompensation, Need For IV Fluids, Need for Pain Control
[2020-05-26] MEDS: FAMOTIDINE INJ/PF 20 MG/2 ML SDV IV SCH ×2 (09:04→21:31)
[2020-05-26] MEDS: RINGERS SOLUTION,LACTATED 1,000 ML IV PRN ×3 (12:13→23:42)
--- NOTE | 2020-05-26 18:22 | PDOC PROGRESS REPORT ---
Subjective Progress Note for:: 05/26/20 Subjective:: Patient was seen and examined at bedside. Complains of 8 out of 10 abdominal pain, able to tolerate diet no nausea or vomiting. Previously admitted in March also for pancreatitis Reason For Visit: ACUTE RECURRENT PANCREATITIS Physical Exam Vital Signs: Temp Pulse Resp BP Pulse Ox 98.7 F 69 18 128/68 H 100 05/26/20 16:05 05/26/20 16:05 05/26/20 16:05 05/26/20 16:05 05/26/20 16:05 Intake & Output 05/25/20 05/26/20 05/27/20 06:59 06:59 06:59 Intake Total 1999 1358 Balance 1999 1358 Weight 68.039 kg General appearance: PRESENT: mild distress Head exam: PRESENT: atraumatic, normocephalic Eye exam: PRESENT: EOMI, PERRLA Mouth exam: PRESENT: moist Neck exam: PRESENT: full ROM Respiratory exam: PRESENT: clear to auscultation luis felipe, symmetrical, unlabored Cardiovascular exam: PRESENT: RRR, +S1, +S2 Pulses: PRESENT: normal femoral pulses Vascular exam: PRESENT: normal capillary refill GI/Abdominal exam: PRESENT: diminished bowel sounds. ABSENT: distended, guarding, rebound, tenderness Extremities exam: ABSENT: calf tenderness Musculoskeletal exam: PRESENT: ambulatory, full ROM Neurological exam: PRESENT: alert, awake, oriented to time Psychiatric exam: PRESENT: normal mood Results Laboratory Results: 05/26/20 02:52 05/26/20 02:52 05/26/20 05/26/20 05/26/20 02:52 02:52 03:38 WBC 16.0 H RBC 4.61 Hgb 13.7 Hct 40.7 MCV 88 MCH 29.6 MCHC 33.6 RDW 13.1 Plt Count 393 Seg Neutrophils % 89.8 H Sodium 138.5 Potassium 4.6 Chloride 101 Carbon Dioxide 29 Anion Gap 9 BUN 12 Creatinine 0.77 Est GFR ( Amer) > 60 Glucose 146 H Calcium 10.0 Total Bilirubin 0.5 AST 26 Alkaline Phosphatase 118 Total Protein 7.4 Albumin 4.7 Lipase 06262.6 H Urine Color YELLOW Urine Appearance CLEAR Urine pH 6.0 Ur Specific [place] 1.050 Urine Protein NEGATIVE Urine Glucose (UA) NEGATIVE Urine Ketones NEGATIVE Urine Blood NEGATIVE Urine Nitrite NEGATIVE Ur Leukocyte Esterase NEGATIVE Urine WBC (Auto) 1 Urine RBC (Auto) 1 05/26/20 05/26/20 05/26/20 02:52 02:52 07:13 Creatine Kinase 75 CK-MB (CK-2) Cancelled Troponin I < 0.012 < 0.012 Impressions: Chest X-Ray 05/25/20 23:50 IMPRESSION: No acute abnormality as above. copyright 2010 [employer]- All Rights Reserved Abdomen/Pelvis CT 05/25/20 23:51 IMPRESSION: 1. Findings compatible with acute interstitial pancreatitis. 2. Large amount of stool. 3. Mild intrahepatic biliary dilatation with dilation of the common bile duct measuring 1.1 cm. This may be related to previous cholecystectomy. No obstructing lesion identified. This exam was performed according to our departmental dose-optimization program, which includes automated exposure control, adjustment of the mA and/or kV according to patient size and/or use of iterative reconstruction technique. Assessment and Plan - Diagnosis (1) Acute recurrent pancreatitis Is this a current diagnosis for this admission?: Yes Plan: -The patient was previously admitted back in March due to acute pancreatitis, he underwent cholecystectomy -Admitted now due to abdominal pain. -Lipase level 10,000 -BUN 12 - Bisap score 0, low risk for mortality -We will continue IV fluids at 200 cc/h -Continue pain medications, he still has significant abdominal pain requiring IV pain medications -Ordered lipid panel -We will need to be seen by a engineer geophysical laboratory as an outpatient for work-up of recurrent pancreatitis - Time Time Spent with patient: 15-24 minutes Anticipated Discharge Disposition: Home, Self Care Anticipated Discharge Timeframe: to be determined - Inpatient Certification Medical Necessity: Need for Pain Control
[2020-05-27] MEDS: HYDROMORPHONE HCL INJ/PF 2 MG/ML AMPULE IV PRN ×7 (00:39→21:45)
[2020-05-27] MEDS: HEPARIN SOD (PORCINE) 5,000 UNIT/ML 1 ML VIAL SUBCUT SCH ×3 (05:52→21:52)
[2020-05-27] MEDS: RINGERS SOLUTION,LACTATED 1,000 ML IV PRN ×4 (05:53→23:58)
[2020-05-27 06:36] LABS: HEMATOCRIT 31.8 % (37.9-51.0); MEAN CORPUSCULAR HEMOGLOBIN 30.1 pg (27.0-33.4); MEAN CORPUSCULAR HGB CONC 33.9 g/dL (32.0-36.0); MEAN CORPUSCULAR VOLUME 89 fl (80-97); PLATELET COUNT 289 10^3/uL (150-450); RED BLOOD COUNT 3.58 10^6/uL (4.35-5.55); RED CELL DISTRIBUTION WIDTH 12.9 % (11.5-14.0); WHITE BLOOD COUNT 6.8 10^3/uL (4.0-10.5)
[2020-05-27 06:41] LABS: HEMOGLOBIN 10.8 g/dL (13.5-17.0)
[2020-05-27 06:50] LABS: ALBUMIN 3.3 g/dL (3.5-5.0); ALKALINE PHOSPHATASE 77 U/L (38-126); AMYLASE 448 U/L (30-110); ANION GAP 5 (5-19); ASPARTATE AMINO TRANSFERASE 18 U/L (17-59); BILIRUBIN,DIRECT 0.2 mg/dL (0.0-0.4); BILIRUBIN,TOTAL 0.3 mg/dL (0.2-1.3); BLOOD UREA NITROGEN 9 mg/dL (7-20); CALCIUM 8.9 mg/dL (8.4-10.2); CARBON DIOXIDE 30 mmol/L (22-30); CHLORIDE 103 mmol/L (98-107); GLUCOSE 99 mg/dL (75-110); POTASSIUM 4.7 mmol/L (3.6-5.0); TOTAL PROTEIN 5.7 g/dL (6.3-8.2)
[2020-05-27] MEDS ORDERED: HYDROMORPHONE HCL INJ/PF 2 MG/ML AMPULE IV PRN (08:35)
[2020-05-27] MEDS: FAMOTIDINE INJ/PF 20 MG/2 ML SDV IV SCH ×2 (10:30→21:52)
[2020-05-27] MEDS ORDERED: MORPHINE SULFATE 10 MG/ML INJ IV ONE (12:27)
--- NOTE | 2020-05-27 15:35 | PDOC PROGRESS REPORT ---
Subjective Progress Note for:: 05/27/20 Subjective:: Patient was seen and examined at bedside. I tried to decrease his pain medications to 0.5 IV every 3 hours however this was not enough for his pain. He tolerated clear liquid diet, no nausea vomiting. Reason For Visit: ACUTE RECURRENT PANCREATITIS Physical Exam Vital Signs: Temp Pulse Resp BP Pulse Ox 98.1 F 80 18 133/66 H 100 05/27/20 11:35 05/27/20 11:35 05/27/20 11:35 05/27/20 11:35 05/27/20 11:35 Intake & Output 05/26/20 05/27/20 05/28/20 06:59 06:59 06:59 Intake Total 1999 5631 1292 Balance 1999 4831 2406 Weight 68.039 kg 67.3 kg General appearance: PRESENT: no acute distress Head exam: PRESENT: atraumatic, normocephalic Eye exam: PRESENT: EOMI, PERRLA Mouth exam: PRESENT: moist Neck exam: PRESENT: full ROM. ABSENT: JVD Respiratory exam: PRESENT: clear to auscultation luis felipe, symmetrical, unlabored Cardiovascular exam: PRESENT: RRR, +S1, +S2 Vascular exam: PRESENT: normal capillary refill GI/Abdominal exam: PRESENT: diminished bowel sounds, soft, tenderness. ABSENT: guarding, rebound Extremities exam: ABSENT: joint swelling, pedal edema Musculoskeletal exam: PRESENT: full ROM Neurological exam: PRESENT: alert, awake, oriented to person, oriented to place, oriented to time Psychiatric exam: PRESENT: normal mood Results Laboratory Results: 05/27/20 05:50 05/27/20 05:50 05/27/20 05/27/20 05:50 05:50 WBC 6.8 RBC 3.58 L Hgb 10.8 L D Hct 31.8 L MCV 89 MCH 30.1 MCHC 33.9 RDW 12.9 Plt Count 289 Sodium 137.6 Potassium 4.7 Chloride 103 Carbon Dioxide 30 Anion Gap 5 BUN 9 Creatinine 0.63 Est GFR ( Amer) > 60 Glucose 99 Calcium 8.9 Magnesium 1.9 Total Bilirubin 0.3 AST 18 Alkaline Phosphatase 77 Total Protein 5.7 L Albumin 3.3 L Amylase 448 H Lipase 1014.9 H 05/26/20 05/26/20 05/26/20 02:52 02:52 07:13 Creatine Kinase 75 CK-MB (CK-2) Cancelled Troponin I < 0.012 < 0.012 Impressions: Chest X-Ray 05/25/20 23:50 IMPRESSION: No acute abnormality as above. copyright 2010 [employer]- All Rights Reserved Abdomen/Pelvis CT 05/25/20 23:51 IMPRESSION: 1. Findings compatible with acute interstitial pancreatitis. 2. Large amount of stool. 3. Mild intrahepatic biliary dilatation with dilation of the common bile duct measuring 1.1 cm. This may be related to previous cholecystectomy. No obstructing lesion identified. This exam was performed according to our departmental dose-optimization program, which includes automated exposure control, adjustment of the mA and/or kV according to patient size and/or use of iterative reconstruction technique. Assessment and Plan - Diagnosis (1) Acute recurrent pancreatitis Is this a current diagnosis for this admission?: Yes Plan: -The patient was previously admitted back in March due to acute pancreatitis, he underwent cholecystectomy -Admitted now due to abdominal pain. -Lipase level 10,000 -BUN 12 - Bisap score 0, low risk for mortality -We will continue IV fluids at 150 cc/h -Continue pain medications, try to titrate down his IV pain medications but his abdominal pain worsened -Ordered lipid panel -We will need to be seen by a financial foundations associate as an outpatient for work-up of recurrent pancreatitis - Time Time Spent with patient: 15-24 minutes Medications reviewed and adjusted accordingly: Yes Anticipated Discharge Disposition: Home, Self Care Anticipated Discharge Timeframe: within 48 hours
[2020-05-27 17:04] LABS: CHOLESTEROL 157.06 mg/dL (0-200); TRIGLYCERIDES 102 mg/dL (<150)
[2020-05-27 17:15] LABS: DIRECT LDL 84 mg/dL (<100)
[2020-05-28] MEDS: HYDROMORPHONE HCL INJ/PF 2 MG/ML AMPULE IV PRN ×3 (01:51→10:04)
[2020-05-28] MEDS: HEPARIN SOD (PORCINE) 5,000 UNIT/ML 1 ML VIAL SUBCUT SCH ×2 (06:00→14:08)
[2020-05-28] MEDS: RINGERS SOLUTION,LACTATED 1,000 ML IV PRN (08:34)
[2020-05-28] MEDS: FAMOTIDINE INJ/PF 20 MG/2 ML SDV IV SCH (10:04)
[2020-05-28] MEDS ORDERED: HYDROCODONE/ACETAMINOPHEN 5-325 MG TABLET PO PRN (11:00)
[2020-05-28 16:27] VITALS: BP 136/77
--- NOTE | 2020-05-29 06:33 | PDOC DISCHARGE SUMMARY ---
Impression - Admit/DC Date/PCP Admission Date/Primary Care Provider: 05/26/20 05:[facility] Discharge Date: 05/28/20 - Discharge Diagnosis (1) Acute recurrent pancreatitis Is this a current diagnosis for this admission?: Yes - Assessment Summary: Patient is a 34-year-old male no significant past medical history who was admitted due to abdominal pain findings consistent for acute pancreatitis. 2nd episode this year - Additional Information Resuscitation Status: Full Code Discharge Diet: As Tolerated Discharge Activity: Activity As Tolerated Referrals: [facility] [Provider Group] (patient will have to schedule ) Prescriptions: Hydrocodone/Acetaminophen [[place] 5-325 mg Tablet] 1 tab PO Q4HP PRN 3 Days #14 tablet PRN Reason: Pantoprazole Sodium [Protonix [address] Tablet] 20 mg PO DAILY 14 Days #14 tab let.dr Home Medications: Hydrocodone/Acetaminophen [[place] 5-325 mg Tablet] 1 tab PO Q4HP PRN 3 Days #14 tablet 05/28/20 Pantoprazole Sodium [Protonix [address] Tablet] 20 mg PO DAILY 14 Days #14 tablet.dr 05/28/20 History of Present Illiness History of Present Illness: KEILA JIANG is a 34 year old male recent history of acute pancreatitis back in March, status post cholecystectomy, admitted on May 26 due to complaints of abdominal pain gradual onset epigastric sharp boring pain in his mid and left upper abdomen radiating to the lower chest and left subscapular area. In the ED lipase was noted to be elevated CT scan of the abdomen showed findings consistent with acute pancreatitis. He was then admitted for IV fluids and pain management. Hospital Course Hospital Course: Patient was admitted on the floor started on volume resuscitation and IV pain medications. Patient was initially put on n.p.o. however he was able to successfully tolerate a clear liquid diet and he was transitioned to clear liquid later on general diet. His symptoms gradually improved. Lipid panel was done which showed normal result. He was discharged on the with prescriptions for [place] 1 tablet every 4 hours as needed for pain 14 tablets no refills. Physical Exam Vital Signs: Temp Pulse Resp BP Pulse Ox 97.9 F 54 L 18 136/77 H 100 05/28/20 16:24 05/28/20 16:24 05/28/20 16:24 05/28/20 16:24 05/28/20 16:24 Intake & Output 05/27/20 05/28/20 05/29/20 06:59 06:59 06:59 Intake Total 9849 5578 1000 Balance 6256 5536 1000 Weight 67.3 kg 67.4 kg General appearance: PRESENT: no acute distress, cooperative Head exam: PRESENT: atraumatic, normocephalic Eye exam: PRESENT: EOMI, PERRLA Mouth exam: PRESENT: moist Neck exam: PRESENT: full ROM Respiratory exam: PRESENT: clear to auscultation luis felipe, symmetrical, unlabored Cardiovascular exam: PRESENT: RRR, +S1, +S2 Vascular exam: PRESENT: normal capillary refill GI/Abdominal exam: PRESENT: normal bowel sounds, soft, tenderness. ABSENT: ascites, distended Rectal exam: PRESENT: deferred Extremities exam: ABSENT: joint swelling, +2 edema Musculoskeletal exam: PRESENT: full ROM Neurological exam: PRESENT: alert, awake, oriented to person, oriented to place, oriented to time, oriented to situation Psychiatric exam: PRESENT: normal mood Results Laboratory Results: WBC 6.8 10^3/uL (4.0-10.5) 05/27/20 05:50 RBC 3.58 10^6/uL (4.35-5.55) L 05/27/20 05:50 Hgb 10.8 g/dL (13.5-17.0) L D 05/27/20 05:50 Hct 31.8 % (37.9-51.0) L 05/27/20 05:50 MCV 89 fl (80-97) 05/27/20 05:50 MCH 30.1 pg (27.0-33.4) 05/27/20 05:50 MCHC 33.9 g/dL (32.0-36.0) 05/27/20 05:50 RDW 12.9 % (11.5-14.0) 05/27/20 05:50 Plt Count 289 10^3/uL (150-450) 05/27/20 05:50 Lymph % (Auto) 5.4 % (13-45) L 05/26/20 02:52 Wilkin % (Auto) 4.5 % (3-13) 05/26/20 02:52 Eos % (Auto) 0.1 % (0-6) 05/26/20 02:52 Baso % (Auto) 0.2 % (0-2) 05/26/20 02:52 Absolute Neuts (auto) 14.4 10^3/uL (1.7-8.2) H 05/26/20 02:52 Absolute Lymphs (auto) 0.9 10^3/uL (0.5-4.7) 05/26/20 02:52 Absolute Monos (auto) 0.7 10^3/uL (0.1-1.4) 05/26/20 02:52 Absolute Eos (auto) 0.0 10^3/uL (0.0-0.6) 05/26/20 02:52 Absolute Basos (auto) 0.0 10^3/uL (0.0-0.2) 05/26/20 02:52 Seg Neutrophils % 89.8 % (42-78) H 05/26/20 02:52 Sodium 137.6 mmol/L (137-145) 05/27/20 05:50 Potassium 4.7 mmol/L (3.6-5.0) 05/27/20 05:50 Chloride 103 mmol/L (98-107) 05/27/20 05:50 Carbon Dioxide 30 mmol/L (22-30) 05/27/20 05:50 Anion Gap 5 (5-19) 05/27/20 05:50 BUN 9 mg/dL (7-20) 05/27/20 05:50 Creatinine 0.63 mg/dL (0.52-1.25) 05/27/20 05:50 Est GFR ( Amer) > 60 (>60) 05/27/20 05:50 Est GFR (MDRD) Non-Af > 60 (>60) 05/27/20 05:50 Glucose 99 mg/dL (75-110) 05/27/20 05:50 Calcium 8.9 mg/dL (8.4-10.2) 05/27/20 05:50 Magnesium 1.9 mg/dL (1.6-2.3) 05/27/20 05:50 Total Bilirubin 0.3 mg/dL (0.2-1.3) 05/27/20 05:50 Direct Bilirubin 0.2 mg/dL (0.0-0.4) 05/27/20 05:50 Neonat Total Bilirubin Not Reportable 05/27/20 05:50 Neonat Direct Bilirubin Not Reportable 05/27/20 05:50 Neonat Indirect Bili Not Reportable 05/27/20 05:50 AST 18 U/L (17-59) 05/27/20 05:50 ALT 15 U/L (<50) 05/27/20 05:50 Alkaline Phosphatase 77 U/L (38-126) 05/27/20 05:50 Creatine Kinase 75 U/L (55-170) 05/26/20 02:52 CK-MB (CK-2) Cancelled 05/26/20 02:52 Troponin I < 0.012 ng/mL 05/26/20 07:13 Total Protein 5.7 g/dL (6.3-8.2) L 05/27/20 05:50 Albumin 3.3 g/dL (3.5-5.0) L 05/27/20 05:50 Triglycerides 102 mg/dL (<150) 05/27/20 16:30 Cholesterol 157.06 mg/dL (0-200) 05/27/20 16:30 LDL Cholesterol Direct 84 mg/dL (<100) 05/27/20 16:30 VLDL Cholesterol 20.0 mg/dL (10-31) 05/27/20 16:30 HDL Cholesterol 44 mg/dL (>40) 05/27/20 16:30 Amylase 448 U/L (30-110) H 05/27/20 05:50 Lipase 1014.9 U/L (23-300) H 05/27/20 05:50 Urine Color YELLOW 05/26/20 03:38 Urine Appearance CLEAR 05/26/20 03:38 Urine pH 6.0 (5.0-9.0) 05/26/20 03:38 Ur Specific [place] 1.050 05/26/20 03:38 Urine Protein NEGATIVE mg/dL (NEGATIVE) 05/26/20 03:38 Urine Glucose (UA) NEGATIVE mg/dL (NEGATIVE) 05/26/20 03:38 Urine Ketones NEGATIVE mg/dL (NEGATIVE) 05/26/20 03:38 Urine Blood NEGATIVE (NEGATIVE) 05/26/20 03:38 Urine Nitrite NEGATIVE (NEGATIVE) 05/26/20 03:38 Urine Bilirubin NEGATIVE (NEGATIVE) 05/26/20 03:38 Urine Urobilinogen NEGATIVE mg/dL (<2.0) 05/26/20 03:38 Ur Leukocyte Esterase NEGATIVE (NEGATIVE) 05/26/20 03:38 Urine WBC (Auto) 1 /HPF 05/26/20 03:38 Urine RBC (Auto) 1 /HPF 05/26/20 03:38 Urine Mucus (Auto) OCC /LPF 05/26/20 03:38 Urine Ascorbic Acid NEGATIVE (NEGATIVE) 05/26/20 03:38 05/26/20 05/26/20 02:52 07:13 CK-MB (CK-2) Cancelled Troponin I < 0.012 < 0.012 Impressions: Chest X-Ray 05/25/20 23:50 IMPRESSION: No acute abnormality as above. copyright 2010 [employer]- All Rights Reserved Abdomen/Pelvis CT 05/25/20 23:51 IMPRESSION: 1. Findings compatible with acute interstitial pancreatitis. 2. Large amount of stool. 3. Mild intrahepatic biliary dilatation with dilation of the common bile duct measuring 1.1 cm. This may be related to previous cholecystectomy. No obstructing lesion identified. This exam was performed according to our departmental dose-optimization program, which includes automated exposure control, adjustment of the mA and/or kV according to patient size and/or use of iterative reconstruction technique. Stroke Is this a Stroke Patient?: No Stroke Pt being discharged on Anti-thrombolytic therapy?: No Reason(s) for not prescribing Anti-thrombolytic therapy:: Not indicated Stroke Pt being discharged on Anti-coagulation therapy?: No Reason(s) for not prescribing Anti-coagulation therapy:: Not indicated Stroke Pt being discharged on Statins?: No Reason(s) for not prescribing Statins therapy:: Not indicated Acute Heart Failure - Is this a Heart Failure Patient?: No Documentation of LVEF assessment?: No, Document reason LVEF - Reason: N/A LVEF: LVEF Greater Than 40% Anticoagulant Therapy: No, document contraindications Reason(s) not Discharged on Anticoagulant Therapy: Other Anticoagulant Therapy Reason - Other: N/A Discharged on Evidence-Based Beta Blockers: No, document contraindications Reason(s) not discharged on Evidence-Based Beta Blockers: Other Beta Kimberli Reason - Other: N/A Discharged on ARNI?: No-Document Contraindications Reason(s) not discharged on ARNI: Other ARNI Reason - Other: N/A Discharged on ARB?: No-document contraindications Reason(s) not Discharged on ARB: Other ARB Reason - Other: N/A Discharged on ACEI?: No, document contraindications Reason(s) not Discharged on ACEI: other ACEI Reason - Other: N/A For LVEF <35%, discharged on Aldosterone Antagonist?: No-document contraincations Reason(s) not discharged on Aldosterone Antagonist: Other Aldosterone Antagonist Reason - Other: N/A Follow-up Appointment scheduled within 7 days?: Yes
== END 2020-05-28 16:56 | disposition home or self-care (01) | DRG 440 ==
LOC: ER 23:35 → EH 05-26 05:10 → 3S 05-26 06:40
PROVIDERS: ADMIT Emergency Medicine; ATTEND Internal Medicine
DX: K85.90 Acute pancreatitis without necrosis or infection, unspecified (principal); D72.829 Elevated white blood cell count, unspecified; R61 Generalized hyperhidrosis; Z90.49 Acquired absence of other specified parts of digestive tract; Z82.49 Family history of ischemic heart disease and other diseases of the circulatory system; Z83.3 Family history of diabetes mellitus
CPT/HCPCS: 36415; 71046; 74177; 80053; 80061; 81001; 82150; 82550; 83690; 83735; 84484; 85025; 85027; 96361; 96374; 96375; 99285; J1170; J1644; J2270; J2405; J7030; J7120; S0028

== ENCOUNTER 2020-06-18 11:08 | Inpatient (IN) | payer OTHER ==
[2020-06-18] MEDS ORDERED: NORMAL SALINE 1000 ML 1,000 ML IV ONE ×2 (12:39→14:41)
[2020-06-18 12:48] LABS: ABSOLUTE LYMPHOCYTES (AUTO) 0.8 10^3/uL (0.5-4.7); ABSOLUTE MONOCYTES (AUTO) 0.7 10^3/uL (0.1-1.4); ABSOLUTE NEUT (AUTO) 9.8 10^3/uL (1.7-8.2); BASOPHILS % (AUTO) 0.2 % (0-2); EOSINOPHILS % (AUTO) 0.1 % (0-6); HEMATOCRIT 41.2 % (37.9-51.0); HEMOGLOBIN 13.8 g/dL (13.5-17.0); LYMPHOCYTES % (AUTO) 6.9 % (13-45); MEAN CORPUSCULAR HEMOGLOBIN 29.7 pg (27.0-33.4); MEAN CORPUSCULAR HGB CONC 33.6 g/dL (32.0-36.0); MEAN CORPUSCULAR VOLUME 88 fl (80-97); MONOCYTES % (AUTO) 6.3 % (3-13); PLATELET COUNT 313 10^3/uL (150-450); RED BLOOD COUNT 4.67 10^6/uL (4.35-5.55); RED CELL DISTRIBUTION WIDTH 13.1 % (11.5-14.0); SEGMENTED NEUTROPHILS % (AUTO) 86.5 % (42-78); TOTAL CELLS COUNTED % (AUTO) 100 %; WHITE BLOOD COUNT 11.3 10^3/uL (4.0-10.5)
[2020-06-18] MEDS ORDERED: KETOROLAC TROMETHAMINE INJ/PF 30 MG/1 ML SDV IV ONE (12:50)
[2020-06-18] MEDS ORDERED: ONDANSETRON HCL INJ/PF 4 MG/2 ML SDV IV ONE (12:53)
--- NOTE | 2020-06-18 12:54 | ER Document Report ---
ED Medical Screen (RME) - General Chief Complaint: Abdominal Pain Stated Complaint: PANCREATITIS ATTACK Time Seen by Provider: 06/18/20 12:38 Primary Care Provider: MAYRA HARRIS [Primary Care Provider] - Follow up as needed Notes: Patient is a 34-year-old male with past medical history of pancreatitis, an appendectomy, and a cholecystectomy who presents emergency department with a chief complaint of abdominal pain. Reports his pain started yesterday. States the pain is in his mid upper abdomen. States it feels like pancreatitis. Denies any nausea or vomiting. States, "the only thing that works for me is 2 mg of Dilaudid." Exam: Tender mid upper abdomen. I have greeted and performed a rapid initial assessment of this patient. A comprehensive ED assessment and evaluation of the patient, analysis of test results and completion of medical decision making process will be conducted by an additional ED providers. TRAVEL OUTSIDE OF THE [place] IN LAST 30 DAYS: No - Related Data Allergies/Adverse Reactions: No Known Allergies Allergy (Unverified 03/04/20 23:25) Past Medical History - Social History Chew tobacco use (# tins/day): No Frequency of alcohol use: None Drug Abuse: None - Past Medical History Cardiac Medical History: Denies: Hx Coronary Artery Disease, Hx Hypercholesterolemia, Hx Hypertension Pulmonary Medical History: Denies: Hx Asthma, Hx COPD Neurological Medical History: Denies: Hx Seizures Endocrine Medical History: Denies: Hx Diabetes Mellitus Type 1, Hx Diabetes Mellitus Type 2, Hx Hyperthyroidism, Hx Hypothyroidism Renal/ Medical History: Denies: Hx Peritoneal Dialysis GI Medical History: Denies: Hx Cirrhosis, Hx Crohn's Disease, Hx Gastroesophageal Reflux Disease, Hx Hepatitis, Hx Ulcerative Colitis Musculoskeltal Medical History: Denies Hx Arthritis, Denies Hx Gout Skin Medical History: Denies Hx Eczema, Denies Hx Psoriasis Psychiatric Medical History: Denies: Hx Depression Infectious Medical History: Denies: Hx Hepatitis Past Surgical History: Reports: Hx Appendectomy, Hx Cholecystectomy - Immunizations Hx Diphtheria, Pertussis, Tetanus Vaccination: Yes Physical Exam - Vital signs Vitals: Temp 99.0 F 06/18/20 11:09 Course - Vital Signs Vital signs: Temp Pulse Resp BP Pulse Ox 99.1 F 90 18 118/80 100 06/18/20 11:50 06/18/20 11:50 06/18/20 11:50 06/18/20 11:50 06/18/20 11:50 - Laboratory Result Diagrams: 06/18/20 12:30 06/18/20 12:30 Doctor's Discharge - Discharge [facility] [[facility] - Follow up as needed
[2020-06-18 13:02] LABS: APPEARANCE,URINE CLEAR; BILIRUBIN,URINE MODERATE (NEGATIVE); CALCIUM OXALATE CRYSTALS,URINE RARE /HPF; COLOR,URINE AMBER; GLUCOSE, URINE NEGATIVE (NEGATIVE); KETONES,URINE TRACE mg/dL (NEGATIVE); LEUKOCYTE ESTERASE,URINE TRACE (NEGATIVE); NITRITE,URINE NEGATIVE (NEGATIVE); PROTEIN,URINE 100 mg/dL (NEGATIVE); URINE SPECIFIC GRAVITY 1.032
[2020-06-18 13:14] LABS: ALBUMIN 4.7 g/dL (3.5-5.0); ALKALINE PHOSPHATASE 136 U/L (38-126); ANION GAP 7 (5-19); ASPARTATE AMINO TRANSFERASE 80 U/L (17-59); BILIRUBIN,DIRECT 0.6 mg/dL (0.0-0.4); BILIRUBIN,TOTAL 0.6 mg/dL (0.2-1.3); BLOOD UREA NITROGEN 10 mg/dL (7-20); CALCIUM 9.5 mg/dL (8.4-10.2); CARBON DIOXIDE 27 mmol/L (22-30); CHLORIDE 100 mmol/L (98-107); GLUCOSE 115 mg/dL (75-110); POTASSIUM 5.1 mmol/L (3.6-5.0); TOTAL PROTEIN 7.3 g/dL (6.3-8.2)
[2020-06-18 13:20] LABS: URINE AMPHETAMINES SCREEN NEGATIVE; URINE METHADONE SCREEN NEGATIVE
--- NOTE | 2020-06-18 13:56 | ER Document Report ---
ED General - General Chief Complaint: Abdominal Pain Stated Complaint: PANCREATITIS ATTACK Time Seen by Provider: 06/18/20 12:38 Notes: 34-year-old male with past medical history of pancreatitis, cholecystectomy and appendectomy presenting today with acute onset abdominal pain starting yesterday. Pain is epigastric but radiates to his back also radiates down to his groin. His pain is 5 out of 5. Pain is similar to when he has had pancrea titis. Last episode of pancreatitis was in May 26 which required an admission for intractable pain. He has stated that only Dilaudid helps to alleviate any of the pain that he is on. Denies any alcohol or drug use. He denies any chest pain, shortness of breath, diaphoresis at this time. No fevers chills or additional symptoms. TRAVEL OUTSIDE OF THE [place] IN LAST 30 DAYS: No - Related Data Allergies/Adverse Reactions: No Known Allergies Allergy (Unverified 03/04/20 23:25) Past Medical History - Social History Smoking Status: Never Smoker Chew tobacco use (# tins/day): No Frequency of alcohol use: None Drug Abuse: None Family History: Reviewed & Not Pertinent - Past Medical History Cardiac Medical History: Denies: Hx Coronary Artery Disease, Hx Hypercholesterolemia, Hx Hypertension Pulmonary Medical History: Denies: Hx Asthma, Hx COPD Neurological Medical History: Denies: Hx Seizures Endocrine Medical History: Denies: Hx Diabetes Mellitus Type 1, Hx Diabetes Mellitus Type 2, Hx Hyperthyroidism, Hx Hypothyroidism Renal/ Medical History: Denies: Hx Peritoneal Dialysis GI Medical History: Denies: Hx Cirrhosis, Hx Crohn's Disease, Hx Gastroesophageal Reflux Disease, Hx Hepatitis, Hx Ulcerative Colitis Musculoskeletal Medical History: Denies Hx Arthritis, Denies Hx Gout Skin Medical History: Denies Hx Eczema, Denies Hx Psoriasis Psychiatric Medical History: Denies: Hx Depression Infectious Medical History: Denies: Hx Hepatitis Past Surgical History: Reports: Hx Appendectomy, Hx Cholecystectomy - Immunizations Hx Diphtheria, Pertussis, Tetanus Vaccination: Yes Review of Systems - Review of Systems Constitutional: No symptoms reported EENT: No symptoms reported Cardiovascular: No symptoms reported Respiratory: No symptoms reported Gastrointestinal: See HPI Genitourinary: No symptoms reported Male Genitourinary: No symptoms reported Musculoskeletal: No symptoms reported Skin: No symptoms reported Hematologic/Lymphatic: No symptoms reported Neurological/Psychological: No symptoms reported Physical Exam - Vital signs Vitals: Temp 99.0 F 06/18/20 11:09 - Notes Notes: Adult General: GENERAL: Alert, interacts well. No acute distress HEAD: Normocephalic, atraumatic EYES: Pupils equal, round and reactive to light. Extraocular movements intact. ENT: Airway patent. Nares patent. NECK: Full range of motion. Supple. Trachea midline. No lymphadenopathy. LUNGS: Clear to auscultation bilaterally, no wheezes, rales, or rhonchi. No respiratory distress. Nontender chest wall. HEART: Regular rate and rhythm. No murmurs, rubs or gallops. ABDOMEN: Soft, diffuse tenderness. Nondistended. (-) [place] sign. Bowel sounds present in all 4 quadrants. No rebound, guarding or masses. GENITOURINARY: Deferred EXTREMITIES: Moves all 4 extremities spontaneously. BACK: Moves all extremities with full range of motion. NEUROLOGICAL: Alert and oriented x3. Normal speech. Strength 5/ 5 in all extremities. PSYCH: Normal affect, normal mood. SKIN: Warm, dry, normal turgor. No rashes or lesions noted. Course - Re-evaluation Re-evalutation: 06/18/20 15:47 lipase is 15,151. wbc is 11.3. Pending ct scan CT scan shows colitis, small amount of ascitis, constipation. 06/18/20 17:[address] Wolfe who agrees to admission and to contact Dr. Leiva. Dr. Leiva called. Pending call back. Additional fluids ordered for patient. 06/18/20 17:[address] Leiva. Agrees to admission med tele. - Vital Signs Vital signs: Temp Pulse Resp BP Pulse Ox 99.0 F 83 17 144/86 H 100 06/18/20 20:15 06/18/20 20:15 06/18/20 20:15 06/18/20 20:15 06/18/20 20:15 - Laboratory Result Diagrams: 06/18/20 12:30 06/18/20 12:30 Laboratory results interpreted by me: 06/18/20 06/18/20 06/18/20 12:30 12:30 12:45 WBC 11.3 H Lymph % (Auto) 6.9 L Absolute Neuts (auto) 9.8 H Seg Neutrophils % 86.5 H Sodium 134.0 L Potassium 5.1 H Glucose 115 H Direct Bilirubin 0.6 H AST 80 H Alkaline Phosphatase 136 H Lipase 63708.0 H Urine Protein 100 H Urine Ketones TRACE H Urine Bilirubin MODERATE H Urine Urobilinogen 2.0 H Ur Leukocyte Esterase TRACE H Urine Ascorbic Acid 40 H Discharge - Discharge Clinical Impression: Colitis, Elevated lipase, Intractable abdominal pain Condition: Good Disposition: ADMITTED INPATIENT Admitting Provider: Cali (Hospitalist) Unit Admitted: Telemetry
[2020-06-18] MEDS ORDERED: MORPHINE SULFATE 10 MG/ML INJ IV ONE (14:02)
[2020-06-18] MEDS ORDERED: HYDROMORPHONE HCL INJ/PF 2 MG/ML AMPULE IV PRN (15:47)
--- NOTE | 2020-06-18 15:56 | RADIOLOGY REPORT (SQ) ---
EXAM DESCRIPTION: CT ABD/PELVIS WITH IV ONLY IMAGES COMPLETED DATE/TIME: 06/18/2020 2:15 pm REASON FOR STUDY: abdominal pain, hx pancreatitis. Left lower quadrant pain and diffuse abdominal p ain. Prior appendectomy and cholecystectomy. COMPARISON: CT abdomen and pelvis, 05/26/2020. CT abdomen and pelvis, 03/06/2020. CT abdomen and pelv is, 03/03/2020. TECHNIQUE: CT scan of the abdomen and pelvis performed using helical scanning technique with dynamic intravenous contrast injection. No oral contrast. Images reviewed with lung, soft tissue, and bone windows. Reconstructed coronal and sagittal MPR images reviewed. Delayed images for evaluation of the urinary system also acquired. All images stored on PACS. All CT scanners at this facility use dose modulation, iterative reconstruction, and/or weight based d osing when appropriate to reduce radiation dose to as low as reasonably achievable (ALARA). [facility]: Dose Right [facility]: CareDose [facility]: Dose Right [facility]: Teradose 4D [facility]: MyClasses CONTRAST TYPE AND DOSE: contrast/concentration: Isovue 350.00 mmol/ml; Total Contrast Delivered: 75. 0 ml; Total Saline Delivered: 67.0 ml RENAL FUNCTION: GFR > 60. RADIATION DOSE: CT Rad equipment meets quality standard of care and radiation dose reduction techniq ues were employed. CTDIvol: 5.3 - 6.7 mGy. DLP: 660 mGy-cm.. LIMITATIONS: None. FINDINGS: LOWER CHEST: No significant findings. No nodules or infiltrates. LIVER: Liver has normal size and contour. Mild hepatic steatosis. No focal hepatic mass. Postopera tive prominence of the intrahepatic and extrahepatic biliary ducts is stable from prior. Hepatic and portal veins are patent. SPLEEN: Normal size. No focal lesions. PANCREAS: The pancreas has normal contour and appearance. No pancreatic ductal dilation. Normal myrtle ogeneous enhancement. No mass. Small amount of peripancreatic fluid consistent with ascites. GALLBLADDER: Surgically absent. ADRENAL GLANDS: No significant masses or asymmetry. RIGHT KIDNEY AND URETER: No solid masses. No significant calcifications. No hydronephrosis or hyd roureter. LEFT KIDNEY AND URETER: No solid masses. No significant calcifications. No hydronephrosis or hydr oureter. AORTA AND VESSELS: No aneurysm. No dissection. Renal arteries, SMA, celiac without stenosis. RETROPERITONEUM: No retroperitoneal adenopathy, hemorrhage or masses. BOWEL AND PERITONEAL CAVITY: Small amount of ascites in the pelvis, gastrohepatic ligament, lesser sa c, and a left pericolic gutter, similar in appearance to previous examination. No pneumoperitoneum. There is a large amount of stool in the colon with marked distention of the cecum. There appears to be a focal short segment of sigmoid colon wall thickening in the left pelvis. APPENDIX: Surgically absent. PELVIS: No mass. No free fluid. Normal bladder. ABDOMINAL WALL: No masses. No hernias. BONES: No significant or acute findings. OTHER: No other significant finding. IMPRESSION: 1. Small amount of ascites in the abdomen and pelvis. There appears a focal colon wall thickening in the sigmoid colon. Findings are suspicious for colitis. Infectious or inflammatory colitis could h ave this appearance. 2. Large amount of stool throughout the colon which can be seen with constipation. Clinical correlat ion for possible obstructive symptoms recommended. 3. Mild hepatic steatosis. 4. Post cholecystectomy. TECHNICAL DOCUMENTATION: JOB ID: [id number] Quality ID # [id number]: Final reports with documentation of one or more dose reduction techniques (e.g., Au tomated exposure control, adjustment of the mA and/or kV according to patient size, use of iterative reconstruction technique) 2010 [employer]- All Rights Reserved Reading location - IP/workstation name: [email or web address]
[2020-06-18] MEDS ORDERED: MINERAL OIL 30 ML UDCUP PR ONE (16:35)
[2020-06-18] MEDS ORDERED: RINGERS SOLUTION,LACTATED 1,000 ML IV PRN (17:12)
[2020-06-18] MEDS ORDERED: NORMAL SALINE 1000 ML 1,000 ML IV PRN (17:37)
[2020-06-18] MEDS ORDERED: ACETAMINOPHEN 325 MG TABLET PO PRN (17:37)
[2020-06-18] MEDS ORDERED: ONDANSETRON HCL INJ/PF 4 MG/2 ML SDV IV PRN (17:37)
[2020-06-18] MEDS ORDERED: MORPHINE SULFATE 10 MG/ML INJ IV PRN (17:43)
--- NOTE | 2020-06-18 17:49 | PDOC H&P ---
History of Present Illness Admission Date/PCP: 06/18/20 17:[facility] Patient complains of: Came in with abdominal pain History of Present Illness: KEILA JIANG is a 34 year old male with history of appendicectomy, cholecystectomy came to the emergency room with abdominal pain of 2 days duration. Denies any nausea denies any vomiting denies any constipation denies any fever denies any chills at this time. Denies any diarrhea. Past Medical History Cardiac Medical History: Denies: Coronary Artery Disease, Hyperlipidema, Hypertension Pulmonary Medical History: Denies: Asthma, Chronic Obstructive Pulmonary Disease (COPD) Neurological Medical History: Denies: Seizures Endocrine Medical History: Denies: Diabetes Mellitus Type 1, Diabetes Mellitus Type 2, Hyperthyroidism, Hypothyroidism GI Medical History: Denies: Cirrhosis, Crohn's Disease, Gastroesophageal Reflux Disease, Hepatitis, Ulcerative Colitis Musculoskeltal Medical History: Denies: Arthritis, Gout Skin Medical History: Denies: Eczema, Psoriasis Psychiatric Medical History: Denies: Depression Hematology: Denies: Anemia, Bleeding Tendencies Past Surgical History Past Surgical History: Reports: Appendectomy, Cholecystectomy Social History Information Source: Patient Smoking Status: Never Smoker Electronic Cigarette use?: No Frequency of Alcohol Use: Rare Hx Recreational Drug Use: No Drugs: None Hx Prescription Drug Abuse: No - Advance Directive Resuscitation Status: Full Code Family History Family History: Reviewed & Not Pertinent Parental Family History Reviewed: Yes - Hypertension Children Family History Reviewed: Yes Sibling(s) Family History Reviewed.: Yes Medication/Allergy Home Medications: Hydrocodone/Acetaminophen [Alleman 5-325 mg Tablet] 1 tab PO Q4HP PRN 3 Days #14 tablet 05/28/20 Pantoprazole Sodium [Protonix [address] Tablet] 20 mg PO DAILY 14 Days #14 tablet.dr 05/28/20 Allergies/Adverse Reactions: No Known Allergies Allergy (Unverified 03/04/20 23:25) Review of Systems Constitutional: ABSENT: fever(s), headache(s), night sweats, weakness Eyes: ABSENT: visual disturbances Ears: ABSENT: hearing changes Nose, Mouth, and Throat: ABSENT: sore throat Cardiovascular: ABSENT: orthropnea, palpitations Respiratory: ABSENT: dyspnea, hemoptysis Gastrointestinal: PRESENT: abdominal pain. ABSENT: diarrhea, hematemesis, nausea, vomiting Genitourinary: ABSENT: dysuria, hematuria Musculoskeletal: ABSENT: deformity, joint swelling Neurological: ABSENT: abnormal gait, abnormal speech, confusion, dizziness, focal weakness, syncope Psychiatric: ABSENT: anxiety, depression, homidical ideation, suicidal ideation Physical Exam Vital Signs: Temp Pulse Resp BP Pulse Ox 98.4 F 90 11 L 136/91 H 100 06/18/20 17:00 06/18/20 11:50 06/18/20 17:01 06/18/20 17:00 06/18/20 16:01 Intake & Output 06/17/20 06/18/20 06/19/20 06:59 06:59 06:59 Intake Total 1999 Balance 1999 Weight 68.039 kg General appearance: PRESENT: other - In moderate distress Head exam: PRESENT: atraumatic Eye exam: PRESENT: PERRLA Mouth exam: PRESENT: moist, tongue midline Teeth exam: PRESENT: poor dentation Neck exam: ABSENT: carotid bruit, JVD, lymphadenopathy, thyromegaly Respiratory exam: PRESENT: clear to auscultation luis felipe. ABSENT: rales, rhonchi, wheezes Cardiovascular exam: PRESENT: tachycardia GI/Abdominal exam: PRESENT: tenderness, other - Bowel sounds are sluggish Rectal exam: PRESENT: deferred Extremities exam: PRESENT: full ROM. ABSENT: calf tenderness, clubbing, pedal edema Neurological exam: PRESENT: alert, awake, oriented to person, oriented to place, oriented to time, oriented to situation, CN II-XII grossly intact. ABSENT: motor sensory deficit Psychiatric exam: PRESENT: appropriate affect, normal mood. ABSENT: homicidal i deation, suicidal ideation Results Laboratory Results: 06/18/20 12:30 06/18/20 12:30 06/18/20 06/18/20 06/18/20 12:30 12:30 12:45 WBC 11.3 H RBC 4.67 Hgb 13.8 Hct 41.2 MCV 88 MCH 29.7 MCHC 33.6 RDW 13.1 Plt Count 313 Seg Neutrophils % 86.5 H Sodium 134.0 L Potassium 5.1 H Chloride 100 Carbon Dioxide 27 Anion Gap 7 BUN 10 Creatinine 0.74 Est GFR ( Amer) > 60 Glucose 115 H Calcium 9.5 Total Bilirubin 0.6 AST 80 H Alkaline Phosphatase 136 H Total Protein 7.3 Albumin 4.7 Lipase 99229.0 H Urine Color REBECCA Urine Appearance CLEAR Urine pH 6.0 Ur Specific Protem 1.032 Urine Protein 100 H Urine Glucose (UA) NEGATIVE Urine Ketones TRACE H Urine Blood NEGATIVE Urine Nitrite NEGATIVE Ur Leukocyte Esterase TRACE H Urine WBC (Auto) 1 Urine RBC (Auto) 1 Impressions: Abdomen/Pelvis CT 06/18/20 14:39 IMPRESSION: 1. Small amount of ascites in the abdomen and pelvis. There appears a focal colon wall thickening in the sigmoid colon. Findings are suspicious for colitis. Infectious or inflammatory colitis could have this appearance. 2. Large amount of stool throughout the colon which can be seen with con stipation. Clinical correlation for possible obstructive symptoms recommended. 3. Mild hepatic steatosis. 4. Post cholecystectomy. Assessment and Plan - Diagnosis (1) Colitis Is this a current diagnosis for this admission?: Yes Plan: 06/18/2020-patient is going to be admitted to [facility] with a diagnosis of colitis as seen in the CT scan of the abdominal pelvis. Blood cultures are requested patient is going to be n.p.o. started on IV fluids, IV morphine 2 mg every 4 hours as needed, IV Protonix 40 mg twice a day, lactic acid levels was requested. Patient was started on IV Flagyl, IV levofloxacin. (2) Acute recurrent pancreatitis Is this a current diagnosis for this admission?: Yes Plan: 06/18/2020-patient admitted with acute on chronic pancreatitis with elevated lipase levels of 15,000. Complains of severe abdominal pain. Plan is to repeat amylase lipase tomorrow, patient will be n.p.o., IV fluids are initiated. Started on morphine 2 mg IV every 4 as needed along with IV Zofran 4 mg every 4 as needed. - Time Anticipated Discharge Disposition: Home, Self Care Anticipated Discharge Timeframe: within 72 hours
[2020-06-18] MEDS: METRONIDAZOLE 500 MG/NS RTU 500 MG/100 ML RTUPB IV SCH (18:40)
[2020-06-18] MEDS: HYDROMORPHONE HCL INJ/PF 2 MG/ML AMPULE IV PRN (21:15)
[2020-06-18] MEDS: PANTOPRAZOLE SODIUM 40 MG VIAL IV SCH (21:26)
[2020-06-18] MEDS: LEVOFLOXACIN 500 MG/D5W RTU 500 MG/100 ML RTUPB IV SCH (21:28)
[2020-06-18] MEDS: HEPARIN SOD (PORCINE) 5,000 UNIT/ML 1 ML VIAL SUBCUT SCH (21:28)
[2020-06-19] MEDS: METRONIDAZOLE 500 MG/NS RTU 500 MG/100 ML RTUPB IV SCH ×5 (00:05→23:38)
[2020-06-19] MEDS: HYDROMORPHONE HCL INJ/PF 2 MG/ML AMPULE IV PRN ×8 (00:15→23:32)
[2020-06-19] MEDS: HEPARIN SOD (PORCINE) 5,000 UNIT/ML 1 ML VIAL SUBCUT SCH ×3 (06:27→22:27)
[2020-06-19 06:43] LABS: ABSOLUTE EOSINOPHILS # (AUTO) 0.1 10^3/uL (0.0-0.6); ABSOLUTE LYMPHOCYTES (AUTO) 0.9 10^3/uL (0.5-4.7); ABSOLUTE MONOCYTES (AUTO) 0.6 10^3/uL (0.1-1.4); ABSOLUTE NEUT (AUTO) 6.3 10^3/uL (1.7-8.2); BASOPHILS % (AUTO) 0.2 % (0-2); EOSINOPHILS % (AUTO) 1.1 % (0-6); HEMATOCRIT 35.4 % (37.9-51.0); HEMOGLOBIN 12.1 g/dL (13.5-17.0); LYMPHOCYTES % (AUTO) 11.3 % (13-45); MEAN CORPUSCULAR HEMOGLOBIN 30.1 pg (27.0-33.4); MEAN CORPUSCULAR HGB CONC 34.1 g/dL (32.0-36.0); MEAN CORPUSCULAR VOLUME 88 fl (80-97); MONOCYTES % (AUTO) 7.1 % (3-13); PLATELET COUNT 172 10^3/uL (150-450); RED BLOOD COUNT 4.01 10^6/uL (4.35-5.55); SEGMENTED NEUTROPHILS % (AUTO) 80.3 % (42-78); TOTAL CELLS COUNTED % (AUTO) 100 %; WHITE BLOOD COUNT 7.8 10^3/uL (4.0-10.5)
[2020-06-19 07:45] LABS: ALBUMIN 3.8 g/dL (3.5-5.0); ALKALINE PHOSPHATASE 114 U/L (38-126); ANION GAP 8 (5-19); ASPARTATE AMINO TRANSFERASE 44 U/L (17-59); BILIRUBIN,DIRECT 0.4 mg/dL (0.0-0.4); BILIRUBIN,TOTAL 0.6 mg/dL (0.2-1.3); BLOOD UREA NITROGEN 12 mg/dL (7-20); CALCIUM 8.7 mg/dL (8.4-10.2); CARBON DIOXIDE 27 mmol/L (22-30); CHLORIDE 102 mmol/L (98-107); GLUCOSE 92 mg/dL (75-110); POTASSIUM 4.2 mmol/L (3.6-5.0); TOTAL PROTEIN 6.1 g/dL (6.3-8.2)
[2020-06-19 07:46] LABS: AMYLASE 2974 U/L (30-110); CHOLESTEROL 152.73 mg/dL (0-200); DIRECT LDL 74 mg/dL (<100); TRIGLYCERIDES 154 mg/dL (<150); VLDL CHOLESTEROL 30.8 mg/dL (10-31)
--- NOTE | 2020-06-19 09:27 | Progress Note ---
Provider Note Provider Note: consult noted history of multiple episodes of pancreatitis s/p gallbladder surgery in the past elevated lipase has abnormal CT scan will need colonoscopy at some point, however will need resolution of the pancreatitis first prior to prep and proceeding will continue to monitor Covid 19 testing is negative full consult to follow
[2020-06-19] MEDS: PANTOPRAZOLE SODIUM 40 MG VIAL IV SCH ×2 (09:42→22:27)
[2020-06-19] MEDS: LEVOFLOXACIN 500 MG/D5W RTU 500 MG/100 ML RTUPB IV SCH (09:42)
--- NOTE | 2020-06-19 11:08 | PDOC CONSULTATION ---
Consultation Consult Date: 06/19/20 Provider Consulted: NEREYDA CORTES Consult reason:: pancreatitis. abnormal CT scan History of Present Illness Admission Date/PCP: 06/18/20 17:[facility] History of Present Illness: KEILA JIANG is a 34 year old male multiple admission for this patient s/p cholecysctectomy in the past admitted for pancreatitis Igg4 is pending however had CT scan and has abnormal area in the sigmoid however also has constipation patient does not have diarrhea no blood in stools CI consulted to work up CT scan at some point will need colonoscopy but will need to wait until there is some resolution of the pancreatitis etiology is unclear at this point Past Medical History Cardiac Medical History: Denies: Coronary Artery Disease, Hyperlipidema, Hypertension Pulmonary Medical History: Denies: Asthma, Chronic Obstructive Pulmonary Disease (COPD) Neurological Medical History: Denies: Seizures Endocrine Medical History: Denies: Diabetes Mellitus Type 1, Diabetes Mellitus Type 2, Hyperthyroidism, Hypothyroidism GI Medical History: Denies: Cirrhosis, Crohn's Disease, Gastroesophageal Reflux Disease, Hepatitis, Ulcerative Colitis Musculoskeltal Medical History: Denies: Arthritis, Gout Skin Medical History: Denies: Eczema, Psoriasis Psychiatric Medical History: Denies: Depression Hematology: Denies: Anemia, Bleeding Tendencies Past Surgical History Past Surgical History: Reports: Appendectomy, Cholecystectomy Social History Smoking Status: Never Smoker Electronic Cigarette use?: No Last Time Smoked: 04/2020 Frequency of Alcohol Use: None Hx Recreational Drug Use: No Drugs: None Hx Prescription Drug Abuse: No - Advance Directive Resuscitation Status: Full Code Family History Family History: Reviewed & Not Pertinent Parental Family History Reviewed: Yes Children Family History Reviewed: Unknown Sibling(s) Family History Reviewed.: Unknown Medication/Allergy Home Medications: Hydrocodone/Acetaminophen [Colbert 5-325 mg Tablet] 1 tab PO Q6HP PRN 06/18/20 Pantoprazole Sodium 20 mg PO DAILY 06/18/20 Allergies/Adverse Reactions: No Known Allergies Allergy (Unverified 03/04/20 23:25) Review of Systems Constitutional: ABSENT: fever(s), headache(s), night sweats, weakness Ears: ABSENT: hearing changes Nose, Mouth, and Throat: ABSENT: mouth pain Cardiovascular: ABSENT: edema, orthropnea Respiratory: ABSENT: dyspnea, hemoptysis Gastrointestinal: ABSENT: diarrhea, hematemesis Genitourinary: ABSENT: dysuria, hematuria Musculoskeletal: ABSENT: deformity, joint swelling Neurological: ABSENT: syncope, tingling, tremor(s) Endocrine: ABSENT: polydipsia, polyphagia, polyuria Hematologic/Lymphatic: ABSENT: easy bruising Physical Exam Vital Signs: Temp Pulse Resp BP Pulse Ox 99.0 F 85 19 146/78 H 100 06/19/20 07:10 06/19/20 07:10 06/19/20 07:10 06/19/20 07:10 06/19/20 07:10 Intake & Output 06/18/20 06/19/20 06/20/20 06:59 06:59 06:59 Intake Total 2310 5 Balance 2310 5 Weight 68 kg General appearance: PRESENT: no acute distress, well-developed, well-nourished Head exam: PRESENT: atraumatic, normocephalic Eye exam: PRESENT: EOMI, PERRLA. ABSENT: nystagmus, periorbital swelling, scleral icterus Mouth exam: PRESENT: moist, neck supple Throat exam: ABSENT: tonsillar exudate, tonsillogmegaly Neck exam: ABSENT: meningismus, tenderness, thyromegaly Respiratory exam: PRESENT: symmetrical, unlabored. ABSENT: tachypnea, wheezes Cardiovascular exam: PRESENT: +S1, +S2 GI/Abdominal exam: PRESENT: soft. ABSENT: Gonsalves's sign, rebound Extremities exam: ABSENT: joint swelling, pedal edema Neurological exam: PRESENT: oriented to time, oriented to situation, CN II-XII grossly intact Skin exam: ABSENT: mottled, pallor, urticaria, vesicles Results Laboratory Results: 06/19/20 06:11 06/19/20 06:11 06/18/20 06/18/20 06/18/20 12:30 12:30 12:45 WBC 11.3 H RBC 4.67 Hgb 13.8 Hct 41.2 MCV 88 MCH 29.7 MCHC 33.6 RDW 13.1 Plt Count 313 Seg Neutrophils % 86.5 H Sodium 134.0 L Potassium 5.1 H Chloride 100 Carbon Dioxide 27 Anion Gap 7 BUN 10 Creatinine 0.74 Est GFR ( Amer) > 60 Glucose 115 H Lactic Acid Calcium 9.5 Magnesium Total Bilirubin 0.6 AST 80 H Alkaline Phosphatase 136 H Total Protein 7.3 Albumin 4.7 Triglycerides Cholesterol LDL Cholesterol Direct VLDL Cholesterol HDL Cholesterol Amylase Lipase 04711.0 H TSH Urine Color REBECCA Urine Appearance CLEAR Urine pH 6.0 Ur Specific Printer 1.032 Urine Protein 100 H Urine Glucose (UA) NEGATIVE Urine Ketones TRACE H Urine Blood NEGATIVE Urine Nitrite NEGATIVE Ur Leukocyte Esterase TRACE H Urine WBC (Auto) 1 Urine RBC (Auto) 1 06/18/20 06/19/20 06/19/20 18:15 06:11 06:11 WBC 7.8 RBC 4.01 L Hgb 12.1 L Hct 35.4 L MCV 88 MCH 30.1 MCHC 34.1 RDW 13.0 Plt Count 172 Seg Neutrophils % 80.3 H Sodium 137.1 Potassium 4.2 Chloride 102 Carbon Dioxide 27 Anion Gap 8 BUN 12 Creatinine 0.87 Est GFR ( Amer) > 60 Glucose 92 Lactic Acid 0.6 L Calcium 8.7 Magnesium 1.8 Total Bilirubin 0.6 AST 44 Alkaline Phosphatase 114 Total Protein 6.1 L Albumin 3.8 Triglycerides 154 H Cholesterol 152.73 LDL Cholesterol Direct 74 VLDL Cholesterol 30.8 HDL Cholesterol 46 Amylase 2974 H Lipase 19533.3 H TSH Urine Color Urine Appearance Urine pH Ur Specific Printer Urine Protein Urine Glucose (UA) Urine Ketones Urine Blood Urine Nitrite Ur Leukocyte Esterase Urine WBC (Auto) Urine RBC (Auto) 06/19/20 06:11 WBC RBC Hgb Hct MCV MCH MCHC RDW Plt Count Seg Neutrophils % Sodium Potassium Chloride Carbon Dioxide Anion Gap BUN Creatinine Est GFR ( Amer) Glucose Lactic Acid Calcium Magnesium Total Bilirubin AST Alkaline Phosphatase Total Protein Albumin Triglycerides Cholesterol LDL Cholesterol Direct VLDL Cholesterol HDL Cholesterol Amylase Lipase TSH 1.20 Urine Color Urine Appearance Urine pH Ur Specific Printer Urine Protein Urine Glucose (UA) Urine Ketones Urine Blood Urine Nitrite Ur Leukocyte Esterase Urine WBC (Auto) Urine RBC (Auto) Impressions: Abdomen/Pelvis CT 06/18/20 14:39 IMPRESSION: 1. Small amount of ascites in the abdomen and pelvis. There appears a focal colon wall thickening in the sigmoid colon. Findings are suspicious for colitis. Infectious or inflammatory colitis could have this appearance. 2. Large amount of stool throughout the colon which can be seen with constipation. Clinical correlation for possible obstructive symptoms recommended. 3. Mild hepatic steatosis. 4. Post cholecystectomy. Assessment & Plan - Diagnosis (1) Colitis Is this a current diagnosis for this admission?: Yes Plan: will need colonoscopy although could be just incomplete distension of the colon will schedule once pancreatitis has resolved (2) Acute pancreatitis Qualifiers: Pancreatitis type: other Acute pancreatitis complication: unspecified Q ualified Code(s): K85.80 - Other acute pancreatitis without necrosis or infection Plan: Etiology is unclear IgG4 is pending to exclude autoimmune causes already had gallbladder removed ? possible pancreatic divisum, will follow along - Time Time Spent: 50 to 70 Minutes
[2020-06-19] MEDS ORDERED: BESIFLOXACIN HCL 0.6% OPH SUSP 5 ML BOTTLE OS SCH (14:00)
[2020-06-19] MEDS: BESIFLOXACIN HCL 0.6% OPH SUSP 5 ML BOTTLE OS SCH ×3 (18:45→22:28)
--- NOTE | 2020-06-19 21:50 | PDOC PROGRESS REPORT ---
Subjective Progress Note for:: 06/19/20 Subjective:: Christian Hodges is a 34/m, no significant past medical history who was admitted on June 18, 2020 due to abdominal pain. He has a history of acute pancreatitis twice in the past. The first episode February 2020, he underwent cholecystectomy, an episode May 2020 treated with IV fluids pain medications. This would be his third episode of pancreatitis. Triglyceride level was normal on last admission. He does not drink alcohol. No known family history of pancr eatitis. He was seen by a dubbing machine operator as an outpatient after discharge last May. No further work-up for pancreatitis was planned. CT of the abdomen done on admission showed small amount of ascites in the abdomen and pelvis. There appears to be a focal colon wall thickening in the sigmoid colon. Findings are suspicious for colitis. Large amount of stool in the colon. Mild hepatic steatosis.He was started on antibiotics for colitis IV fluids and pain medications for pancreatitis. Day 2 hospital stay. He was seen and examined at bedside. He still appears to be in considerable pain. No nausea vomiting. No melena. He is still currently on IV fluids and Dilaudid for pain. GI was consulted regarding third episode of pancreatitis. Awaiting IgG4 testing. Per GI notes he might need colonoscopy in the future. Reason For Visit: ACUTE PACREATITIS Physical Exam Vital Signs: Temp Pulse Resp BP Pulse Ox 98.8 F 120 H 19 141/77 H 100 06/19/20 16:00 06/19/20 19:00 06/19/20 16:00 06/19/20 16:00 06/19/20 16:00 Intake & Output 06/18/20 06/19/20 06/20/20 06:59 06:59 06:59 Intake Total 2310 405 Balance 2310 405 Weight 68 kg General appearance: PRESENT: no acute distress, cooperative, other - In pain Head exam: PRESENT: atraumatic, normocephalic Eye exam: PRESENT: conjunctiva pink, EOMI, periorbital swelling - Left eye, PERRLA, other - Positive photophobia, with watery eye discharge left, Mouth exam: PRESENT: moist Neck exam: PRESENT: full ROM Respiratory exam: PRESENT: clear to auscultation luis felipe, symmetrical. ABSENT: unlabored Cardiovascular exam: PRESENT: RRR, +S1, +S2 Pulses: PRESENT: +2 pedal pulses bilateral Vascular exam: PRESENT: normal capillary refill GI/Abdominal exam: PRESENT: diminished bowel sounds, distended - Mild distention, soft, tenderness - Epigastric area. ABSENT: rebound Musculoskeletal exam: PRESENT: full ROM Neurological exam: PRESENT: alert, awake, oriented to person, oriented to place, oriented to time, oriented to situation Skin exam: PRESENT: normal color Results Laboratory Results: 06/19/20 06:11 06/19/20 06:11 06/19/20 06/19/20 06/19/20 06:11 06:11 06:11 WBC 7.8 RBC 4.01 L Hgb 12.1 L Hct 35.4 L MCV 88 MCH 30.1 MCHC 34.1 RDW 13.0 Plt Count 172 Seg Neutrophils % 80.3 H Sodium 137.1 Potassium 4.2 Chloride 102 Carbon Dioxide 27 Anion Gap 8 BUN 12 Creatinine 0.87 Est GFR ( Amer) > 60 Glucose 92 Calcium 8.7 Magnesium 1.8 Total Bilirubin 0.6 AST 44 Alkaline Phosphatase 114 Total Protein 6.1 L Albumin 3.8 Triglycerides 154 H Cholesterol 152.73 LDL Cholesterol Direct 74 VLDL Cholesterol 30.8 HDL Cholesterol 46 Amylase 2974 H Lipase 99195.3 H TSH 1.20 Impressions: Abdomen/Pelvis CT 06/18/20 14:39 IMPRESSION: 1. Small amount of ascites in the abdomen and pelvis. There appears a focal colon wall thickening in the sigmoid colon. Findings are suspicious for colitis. Infectious or inflammatory colitis could have this appearance. 2. Large amount of stool throughout the colon which can be seen with constipation. Clinical correlation for possible obstructive symptoms recommended. 3. Mild hepatic steatosis. 4. Post cholecystectomy. Assessment and Plan - Diagnosis (1) Acute recurrent pancreatitis Is this a current diagnosis for this admission?: Yes Plan: -Admitted due to abdominal pain, epigastric area 10 out of 10. Similar to prior pancreatitis episodes -Will be his third pancreatitis this year. Episode February 2020, underwent gallbladder removal. Second episode May 2020 managed with IV fluids pain medications. - Lipase [id number] - CT abdomen Findings are suspicious for colitis. Large amount of stool in the colon. Mild hepatic steatosis. -No pancreatic pseudocyst seen on CT, no necrosis -TriGlycerides on previous admission was normal -Does not drink alcohol heavily -Differential diagnosis autoimmune pancreatitis, or pancreatic divisum, and pancreatic duct abnormalities -IgG4 pending - continue IV fluids - dilaudid for pain - NPO -GI on board (2) Colitis Is this a current diagnosis for this admission?: Yes Plan: -Colitis seen on CT abdomen during admission. -WBC count 11.3>7.8 - on metro and levaquin - blood cx negative x 1 - GI on board - no indication for surgery consult - morphine for pain (3) Elevated lipase Is this a current diagnosis for this admission?: Yes Plan: -Secondary to pancreatitis (4) Intractable abdominal pain Is this a current diagnosis for this admission?: Yes Plan: Secondary to pancreatitis and colitis Dilaudid for pain - Time Time Spent with patient: 25-34 minutes Medications reviewed and adjusted accordingly: Yes Anticipated Discharge Disposition: Home, Self Care Anticipated Discharge Timeframe: within 72 hours
[2020-06-19] MEDS: RINGERS SOLUTION,LACTATED 1,000 ML IV PRN (22:26)
[2020-06-19] MEDS: ERYTHROMYCIN 0.5% OPH OINTMENT 3.5 GM TUBE OS SCH (22:27)
[2020-06-20] MEDS: HYDROMORPHONE HCL INJ/PF 2 MG/ML AMPULE IV PRN ×7 (02:30→20:48)
[2020-06-20] MEDS: BESIFLOXACIN HCL 0.6% OPH SUSP 5 ML BOTTLE OS SCH ×9 (05:06→22:09)
[2020-06-20] MEDS: HEPARIN SOD (PORCINE) 5,000 UNIT/ML 1 ML VIAL SUBCUT SCH ×3 (05:06→22:08)
[2020-06-20] MEDS: METRONIDAZOLE 500 MG/NS RTU 500 MG/100 ML RTUPB IV SCH ×4 (05:06→23:15)
[2020-06-20] MEDS: RINGERS SOLUTION,LACTATED 1,000 ML IV PRN ×2 (08:30→22:05)
[2020-06-20] MEDS: LEVOFLOXACIN 500 MG/D5W RTU 500 MG/100 ML RTUPB IV SCH (09:01)
[2020-06-20] MEDS: PANTOPRAZOLE SODIUM 40 MG VIAL IV SCH ×2 (09:01→22:01)
[2020-06-20 10:08] LABS: ALBUMIN 3.1 g/dL (3.5-5.0); ALKALINE PHOSPHATASE 89 U/L (38-126); ANION GAP 7 (5-19); ASPARTATE AMINO TRANSFERASE 27 U/L (17-59); BILIRUBIN,DIRECT 0.4 mg/dL (0.0-0.4); BILIRUBIN,TOTAL 0.7 mg/dL (0.2-1.3); BLOOD UREA NITROGEN 18 mg/dL (7-20); CALCIUM 8.2 mg/dL (8.4-10.2); CARBON DIOXIDE 28 mmol/L (22-30); CHLORIDE 101 mmol/L (98-107); GLUCOSE 100 mg/dL (75-110); TOTAL PROTEIN 5.3 g/dL (6.3-8.2)
--- NOTE | 2020-06-20 10:34 | Progress Note ---
Provider Note Provider Note: spoke with Dr Traore patient has history of recurrent pancreatitis and work up has been obscure so far, will need a referral to possible tertiary institution for continued work up, possible pancreatic divisum, spoke about getting possible colonoscopy done can put on schedule in the am if patient is agreeable.
[2020-06-20] MEDS ORDERED: DEXTROSE 50%-WATER 25 GM/50 ML DISP.SYRIN IV PRN ×2 (10:35)
[2020-06-20] MEDS ORDERED: DEXTROSE 40% GEL 15 GM TUBE PO PRN ×2 (10:35)
[2020-06-20] MEDS ORDERED: GLUCAGON,HUMAN RECOMB 1 MG INJ SUBCUT PRN (10:35)
[2020-06-20 11:27] LABS: ABSOLUTE BASOPHILS # (AUTO) 0.1 10^3/uL (0.0-0.2); ABSOLUTE EOSINOPHILS # (AUTO) 0.1 10^3/uL (0.0-0.6); ABSOLUTE LYMPHOCYTES (AUTO) 0.8 10^3/uL (0.5-4.7); ABSOLUTE MONOCYTES (AUTO) 0.8 10^3/uL (0.1-1.4); ABSOLUTE NEUT (AUTO) 7.3 10^3/uL (1.7-8.2); BASOPHILS % (AUTO) 0.7 % (0-2); EOSINOPHILS % (AUTO) 1.3 % (0-6); HEMOGLOBIN 10.8 g/dL (13.5-17.0); LYMPHOCYTES % (AUTO) 8.4 % (13-45); MEAN CORPUSCULAR HEMOGLOBIN 29.9 pg (27.0-33.4); MEAN CORPUSCULAR HGB CONC 34.9 g/dL (32.0-36.0); MEAN CORPUSCULAR VOLUME 86 fl (80-97); MONOCYTES % (AUTO) 8.5 % (3-13); RED BLOOD COUNT 3.61 10^6/uL (4.35-5.55); RED CELL DISTRIBUTION WIDTH 13.2 % (11.5-14.0); SEGMENTED NEUTROPHILS % (AUTO) 81.1 % (42-78); TOTAL CELLS COUNTED % (AUTO) 100 %
[2020-06-20 11:47] LABS: PLATELET COUNT 88 10^3/uL (150-450)
[2020-06-20] MEDS ORDERED: PEG 3350/NA SULF,BICARB,CL/KCL 4000 ML PO ONE (13:00)
--- NOTE | 2020-06-20 16:18 | PDOC PROGRESS REPORT ---
Subjective Progress Note for:: 06/20/20 Subjective:: Christian Hodges is a 34/m, no significant past medical history who was admitted on June 18, 2020 due to abdominal pain. He has a history of acute pancreatitis twice in the past. The first episode February 2020, he underwent cholecystectomy, an episode May 2020 treated with IV fluids pain medications. This would be his third episode of pancreatitis. Triglyceride level was normal on last admission. He does not drink alcohol. No known family history of pancr eatitis. He was seen by a trail maintenance worker as an outpatient after discharge last May. No further work-up for pancreatitis was planned. CT of the abdomen done on admission showed small amount of ascites in the abdomen and pelvis. There appears to be a focal colon wall thickening in the sigmoid colon. Findings are suspicious for colitis. Large amount of stool in the colon. Mild hepatic steatosis.He was started on antibiotics for colitis IV fluids and pain medications for pancreatitis. Day 2 hospital stay. He was seen and examined at bedside. He still appears to be in considerable pain. No nausea vomiting. No melena. He is still currently on IV fluids and Dilaudid for pain. GI was consulted regarding third episode of pancreatitis. Awaiting IgG4 testing. Per GI notes he might need colonoscopy in the future. Day 3 hospital stay. He was seen and examined at bedside. Still complains of significant abdominal pain. No fever, no nausea/vomiting. I spoke to Dr. Knapp and discussed the case with him. Most of the work up for pancreatitis has been unrevealing as to the cause of his recurrent pancreatitis. TAG is just mildly elevated, he is non alcoholic and IgG4 is normal. There is no pancreatic necrosis or pseudocyst in the CT. He suggests that he might need transfer to a tertiary care facility, also suggested colonoscopy for colitis. He is still on dilaudid for pain, IV fluids. He is put on clear liquids. Scheduled for colonoscopy tomorrow. Reason For Visit: ACUTE PACREATITIS Physical Exam Vital Signs: Temp Pulse Resp BP Pulse Ox 98.5 F 94 17 133/76 H 99 06/20/20 15:03 06/20/20 15:03 06/20/20 15:03 06/20/20 15:03 06/20/20 15:03 Intake & Output 06/19/20 06/20/20 06/21/20 06:59 06:59 06:59 Intake Total 2310 1615 210 Balance 2310 1615 210 Weight 68 kg 68 kg General appearance: PRESENT: no acute distress, cooperative, other - in pain Eye exam: PRESENT: EOMI, PERRLA, other - conjunctival injections Mouth exam: PRESENT: moist Neck exam: PRESENT: full ROM Respiratory exam: PRESENT: clear to auscultation luis felipe, symmetrical, unlabored Cardiovascular exam: PRESENT: RRR, +S1, +S2 Pulses: PRESENT: normal radial pulses GI/Abdominal exam: PRESENT: normal bowel sounds, soft, tenderness - epigastric and RUQ Extremities exam: PRESENT: full ROM Musculoskeletal exam: PRESENT: full ROM Neurological exam: PRESENT: alert, awake, oriented to person, oriented to place, oriented to time Results Laboratory Results: 06/20/20 11:15 06/20/20 09:23 06/20/20 06/20/20 06/20/20 09:23 09:23 11:15 WBC Cancelled 9.0 RBC Cancelled 3.61 L Hgb Cancelled 10.8 L Hct Cancelled 31.0 L MCV Cancelled 86 MCH Cancelled 29.9 MCHC Cancelled 34.9 RDW Cancelled 13.2 Plt Count Cancelled 88 L Seg Neutrophils % Cancelled 81.1 H Sodium 136.4 L Potassium 4.0 Chloride 101 Carbon Dioxide 28 Anion Gap 7 BUN 18 Creatinine 0.72 Est GFR ( Amer) > 60 Glucose 100 Calcium 8.2 L Total Bilirubin 0.7 AST 27 Alkaline Phosphatase 89 Total Protein 5.3 L Albumin 3.1 L Impressions: Abdomen/Pelvis CT 06/18/20 14:39 IMPRESSION: 1. Small amount of ascites in the abdomen and pelvis. There appears a focal colon wall thickening in the sigmoid colon. Findings are suspicious for colitis. Infectious or inflammatory colitis could have this appearance. 2. Large amount of stool throughout the colon which can be seen with constipation. Clinical correlation for possible obstructive symptoms recommended. 3. Mild hepatic steatosis. 4. Post cholecystectomy. Assessment and Plan - Diagnosis (1) Acute recurrent pancreatitis Is this a current diagnosis for this admission?: Yes Plan: -Admitted due to abdominal pain, epigastric area 10 out of 10. Similar to prior pancreatitis episodes -Will be his third pancreatitis this year. Episode February 2020, underwent ga llbladder removal. Second episode May 2020 managed with IV fluids pain medications. - Lipase 74152>[id number] - CT abdomen Findings are suspicious for colitis. Large amount of stool in the colon. Mild hepatic steatosis. -No pancreatic pseudocyst seen on CT, no necrosis -TriGlycerides on previous admission was normal -Does not drink alcohol heavily -Differential diagnosis autoimmune pancreatitis, or pancreatic divisum, and pancreatic duct abnormalities -IgG4 normal - continue IV fluids - dilaudid for pain - clear liquids -GI on board. Per Dr. Knapp may have Pancreatic divisum and tertiary care transfer for work up. (2) Colitis Is this a current diagnosis for this admission?: Yes Plan: -Colitis seen on CT abdomen during admission. -WBC count 11.3>7.8 - on metro and levaquin - blood cx negative x 2 - GI on board. Plan for colonoscopy tomorrow - no indication for surgery consult - morphine for pain (3) Elevated lipase Is this a current diagnosis for this admission?: Yes Plan: -Secondary to pancreatitis (4) Intractable abdominal pain Is this a current diagnosis for this admission?: Yes Plan: Secondary to pancreatitis and colitis Dilaudid for pain (5) Red eye associated with contact lens Is this a current diagnosis for this admission?: Yes Plan: - contact lens wearer complained of left red eye, with BOV, watery discharge, photophobia and eye pain - Dr. Lundy consulted he has seen him but has not dropped a note - started on erythromycin cream and besifloxacin eye drops - Time Time Spent with patient: 25-34 minutes Anticipated Discharge Disposition: Home, Self Care Anticipated Discharge Timeframe: to be determined
[2020-06-20 18:46] LABS: ALBUMIN 3.2 g/dL (3.5-5.0); ALKALINE PHOSPHATASE 101 U/L (38-126); ANION GAP 8 (5-19); ASPARTATE AMINO TRANSFERASE 35 U/L (17-59); BILIRUBIN,DIRECT 0.4 mg/dL (0.0-0.4); BILIRUBIN,TOTAL 0.7 mg/dL (0.2-1.3); BLOOD UREA NITROGEN 13 mg/dL (7-20); CALCIUM 8.3 mg/dL (8.4-10.2); CARBON DIOXIDE 29 mmol/L (22-30); CHLORIDE 100 mmol/L (98-107); GLUCOSE 93 mg/dL (75-110); POTASSIUM 3.9 mmol/L (3.6-5.0); TOTAL PROTEIN 5.4 g/dL (6.3-8.2)
[2020-06-20] MEDS: ERYTHROMYCIN 0.5% OPH OINTMENT 3.5 GM TUBE OS SCH (22:02)
[2020-06-21] MEDS: HYDROMORPHONE HCL INJ/PF 2 MG/ML AMPULE IV PRN ×7 (00:21→22:12)
[2020-06-21] MEDS: METRONIDAZOLE 500 MG/NS RTU 500 MG/100 ML RTUPB IV SCH ×4 (05:11→23:15)
[2020-06-21] MEDS: BESIFLOXACIN HCL 0.6% OPH SUSP 5 ML BOTTLE OS SCH ×9 (05:11→22:11)
[2020-06-21] MEDS: HEPARIN SOD (PORCINE) 5,000 UNIT/ML 1 ML VIAL SUBCUT SCH ×3 (05:17→22:22)
[2020-06-21] MEDS ORDERED: PROPOFOL INJ 200 MG/20 ML VIAL IV ONE ×2 (07:59→10:18)
[2020-06-21] MEDS: LEVOFLOXACIN 500 MG/D5W RTU 500 MG/100 ML RTUPB IV SCH (10:00)
--- NOTE | 2020-06-21 10:17 | Operative Report ---
Operative Report DATE OF SURGERY: 06/21/20 Operative Report: The risk, benefits and alternatives of the procedure including the risk of bleeding, perforation requiring surgery have been explained to the patient in detail and informed consent has been obtained. Patient is placed in a left, lateral decubital position. Timeout was called. Propofol medication is administered. Rectal examination is done which did not reveal any masses, tears or fissures. An Olympus videoscope was introduced into the patient's rectum. Scope was then carefully advanced all the way to the cecum. Cecum was identified by the usual anatomical landmarks including the ileocecal valve as well as the appendiceal office. Photodocumentation is obtained. Scope was then sequentially pulled back via the various segments of the colon including the ascending colon, hepatic flexure, transverse colon, splenic flexure, descending colon finding to the rectosigmoid portions of the colon. Retroflexion maneuver is performed. PREOPERATIVE DIAGNOSIS: Abnormal CT scan POSTOPERATIVE DIAGNOSIS: No obstructive lesion in the colon the cecum was reached without difficulty. Unusual curvature around the hepatic flexure. Spastic colon. 2 rectosigmoid polyps removed via snare polypectomy and re trieved. Internal hemorrhoids OPERATION: Colonoscopy with snare polypectomy. colonoscopy with biopsy SURGEON: NEREYDA CORTES ANESTHESIA: LMAC TISSUE REMOVED OR ALTERED: As noted above. COMPLICATIONS: None. ESTIMATED BLOOD LOSS: None. INTRAOPERATIVE FINDINGS: As noted above. PROCEDURE: Patient tolerated procedure well. No immediate postprocedure complications are noted. Patient is sent back to his room in good condition. Wait on biopsies. 5-year surveillance colonoscopy. Can resume previous diet as tolerated. Needs referral to tertiary institution for work-up of recurrent pancreatitis.
[2020-06-21] MEDS: FONDAPARINUX SODIUM INJ 7.5 MG/0.6 ML DISP.SYRIN SUBCUT SCH (11:17)
[2020-06-21] MEDS: PANTOPRAZOLE SODIUM 40 MG VIAL IV SCH ×2 (11:50→22:11)
--- NOTE | 2020-06-21 19:06 | PDOC PROGRESS REPORT ---
Subjective Progress Note for:: 06/21/20 Subjective:: Christian Hodges is a 34/m, no significant past medical history who was admitted on June 18, 2020 due to abdominal pain. He has a history of acute pancreatitis twice in the past. The first episode February 2020, he underwent cholecystectomy, an episode May 2020 treated with IV fluids pain medications. This would be his third episode of pancreatitis. Triglyceride level was normal on last admission. He does not drink alcohol. No known family history of pancr eatitis. He was seen by a tender labor as an outpatient after discharge last May. No further work-up for pancreatitis was planned. CT of the abdomen done on admission showed small amount of ascites in the abdomen and pelvis. There appears to be a focal colon wall thickening in the sigmoid colon. Findings are suspicious for colitis. Large amount of stool in the colon. Mild hepatic steatosis.He was started on antibiotics for colitis IV fluids and pain medications for pancreatitis. Day 2 hospital stay. He was seen and examined at bedside. He still appears to be in considerable pain. No nausea vomiting. No melena. He is still currently on IV fluids and Dilaudid for pain. GI was consulted regarding third episode of pancreatitis. Awaiting IgG4 testing. Per GI notes he might need colonoscopy in the future. Day 3 hospital stay 06/20/20. He was seen and examined at bedside. Still complains of significant abdominal pain. No fever, no nausea/vomiting. I spoke to Dr. Knapp and discussed the case with him. Most of the work up for pancreatitis has been unrevealing as to the cause of his recurrent pancreatitis. TAG is just mildly elevated, he is non alcoholic and IgG4 is normal. There is no pancreatic necrosis or pseudocyst in the CT. He suggests that he might need allen sfer to a tertiary care facility, also suggested colonoscopy for colitis. He is still on dilaudid for pain, IV fluids. He is put on clear liquids. Scheduled for colonoscopy tomorrow. Day 4 hospital stay 06/21/20. He was seen and examined at bedside. Abdominal pain seems to be much better. No fever, no nausea/vomiting. He underwent colonoscopy today found rectosigmoid colon polyp removed sent for pathology. He was asked if Dr. Damon can be put on consult since he knows him. Dr. damon informed and I left a message to Dr. Knapp's office. Reason For Visit: ACUTE PACREATITIS Physical Exam Vital Signs: Temp Pulse Resp BP Pulse Ox 98.4 F 88 16 123/69 100 06/21/20 12:19 06/21/20 14:00 06/21/20 12:19 06/21/20 12:19 06/21/20 12:19 Intake & Output 06/20/20 06/21/20 06/22/20 06:59 06:59 06:59 Intake Total 1615 1520 1030 Balance 1615 1520 1030 Weight 68 kg 67.6 kg General appearance: PRESENT: no acute distress, cooperative Head exam: PRESENT: atraumatic, normocephalic Eye exam: PRESENT: EOMI, PERRLA Mouth exam: PRESENT: moist Neck exam: PRESENT: full ROM Respiratory exam: PRESENT: clear to auscultation luis felipe, symmetrical, unlabored Cardiovascular exam: PRESENT: RRR, +S1, +S2 Vascular exam: PRESENT: normal capillary refill GI/Abdominal exam: PRESENT: distended, normal bowel sounds, soft. ABSENT: tenderness Extremities exam: PRESENT: full ROM Musculoskeletal exam: PRESENT: full ROM Neurological exam: PRESENT: alert, awake, oriented to person, oriented to place, oriented to time, oriented to situation Psychiatric exam: PRESENT: normal mood Results Laboratory Results: 06/20/20 11:15 06/20/20 17:47 06/20/20 17:47 Sodium 136.5 L Potassium 3.9 Chloride 100 Carbon Dioxide 29 Anion Gap 8 BUN 13 Creatinine 0.69 Est GFR ( Amer) > 60 Glucose 93 Calcium 8.3 L Total Bilirubin 0.7 AST 35 Alkaline Phosphatase 101 Total Protein 5.4 L Albumin 3.2 L Impressions: Abdomen/Pelvis CT 06/18/20 14:39 IMPRESSION: 1. Small amount of ascites in the abdomen and pelvis. There appears a focal co frankie wall thickening in the sigmoid colon. Findings are suspicious for colitis. Infectious or inflammatory colitis could have this appearance. 2. Large amount of stool throughout the colon which can be seen with constipation. Clinical correlation for possible obstructive symptoms recommended. 3. Mild hepatic steatosis. 4. Post cholecystectomy. Assessment and Plan - Diagnosis (1) Acute recurrent pancreatitis Is this a current diagnosis for this admission?: Yes Plan: -Admitted due to abdominal pain, epigastric area 10 out of 10. Similar to prior pancreatitis episodes -Will be his third pancreatitis this year. Episode February 2020, underwent gallbladder removal. Second episode May 2020 managed with IV fluids pain medications. - Lipase 57030>07732 - CT abdomen Findings are suspicious for colitis. Large amount of stool in the colon. Mild hepatic steatosis. -No pancreatic pseudocyst seen on CT, no necrosis -TriGlycerides on previous admission was normal -Does not drink alcohol heavily -Differential diagnosis autoimmune pancreatitis, or pancreatic divisum, and pancreatic duct abnormalities -IgG4 normal - continue IV fluids - dilaudid for pain - advanced to regular diet -GI on board. Per Dr. Knapp may have Pancreatic divisum and tertiary care transfer for work up. - Patient requested Dr. Damon since he knows him (2) Colitis Is this a current diagnosis for this admission?: Yes Plan: -Colitis seen on CT abdomen during admission. -WBC count 11.3>7.8 - on metro and levaquin d4 will switch to oral abx tomorrow - blood cx negative x 2 - s/p colonoscopy, rectosigmoid polyp removed - GI on board. - no indication for surgery consult - morphine for pain (3) Elevated lipase Is this a current diagnosis for this admission?: Yes Plan: -Secondary to pancreatitis (4) Intractable abdominal pain Is this a current diagnosis for this admission?: Yes Plan: Secondary to pancreatitis and colitis Dilaudid for pain (5) Red eye associated with contact lens Is this a current diagnosis for this admission?: Yes Plan: - contact lens wearer complained of left red eye, with BOV, watery discharge, photophobia and eye pain - Dr. Lundy consulted he has seen him but has not dropped a note - started on erythromycin cream and besifloxacin eye drops (6) Thrombocytopenia Is this a current diagnosis for this admission?: Yes Plan: - platelet drop >50% from day of admission 313>88 - had prior heparin exposure 3 weeks back - ddx. HIT or secondary to ongoing infection - 4T HIT score intermediate probability - PF4 sent - heparin switched to arixtra - will monitor - Time Time Spent with patient: 25-34 minutes Anticipated Discharge Disposition: Home, Self Care Anticipated Discharge Timeframe: to be determined
--- NOTE | 2020-06-21 20:03 | PDOC CONSULTATION ---
Consultation Consult Date: 06/21/20 Provider Consulted: AISHWARYA CHAVARRIA History of Present Illness Admission Date/PCP: 06/18/20 17:[facility] History of Present Illness: KEILA JIANG is a 34 year old male Patient who was admitted on 06/18/2020 with recurrent pancreatitis. Consultation was requested for same. He was first admitted to the hospital on 03/03/2020 with acute onset right upper quadrant pain that started a few hours before admission. His lipase was as high as 17,000 at that time and his LFTs were abnormal. On admission only his alkaline phosphatase was elevated but after a few days his transaminases went up to 363 and 337 with alkaline phosphatase of 300. Bilirubin was normal. He eventually had a cholecystectomy with intraoperative cholangiogram which was read as showing dilated common bile duct with tapering. His gallbladder pathology showed no gallstones. He did well after his cholecystectomy until 05/26/2020 when he was again admitted with upper abdominal pain. This time his lipase was 10,000 but his LFTs were normal. A CT of his abdomen during that admission showed a common bile duct of 1.1 cm without intrahepatic dilation. He was admitted on 06/18/2020 with sudden onset abdominal pain that woke him up during the night. His lipase was 15,000 with elevated AST and alkaline phosphatase. By the next day his LFTs were back to normal. He does not abuse alcohol, denies trauma or any new medications and does not have significantly elevated triglycerides. Currently he is doing better but still has some discomfort. He had a colonoscopy today for an abnormality noted on his CAT scan but this was unremarkable. His CAT scan showed prominence of the intra-and extrahepatic biliary ducts with small amount of peripancreatic fluid and fatty liver Past Medical History Cardiac Medical History: Denies: Coronary Artery Disease, Hyperlipidema, Hypertension Pulmonary Medical History: Denies: Asthma, Chronic Obstructive Pulmonary Disease (COPD) Neurological Medical History: Denies: Seizures Endocrine Medical History: Denies: Diabetes Mellitus Type 1, Diabetes Mellitus Type 2, Hyperthyroidism, Hypothyroidism GI Medical History: Denies: Cirrhosis, Crohn's Disease, Gastroesophageal Reflux Disease, Hepatitis, Ulcerative Colitis Musculoskeltal Medical History: Denies: Arthritis, Gout Skin Medical History: Denies: Eczema, Psoriasis Psychiatric Medical History: Denies: Depression Hematology: Denies: Anemia, Bleeding Tendencies Past Surgical History Past Surgical History: Reports: Appendectomy, Cholecystectomy Social History Smoking Status: Never Smoker Electronic Cigarette use?: No Last Time Smoked: 04/2020 Frequency of Alcohol Use: None Hx Recreational Drug Use: No Drugs: None Hx Prescription Drug Abuse: No - Advance Directive Resuscitation Status: Full Code Family History Family History: Reviewed & Not Pertinent Parental Family History Reviewed: No Children Family History Reviewed: NA Sibling(s) Family History Reviewed.: NA Medication/Allergy Home Medications: Hydrocodone/Acetaminophen [[place] 5-325 mg Tablet] 1 tab PO Q6HP PRN 06/18/20 Pantoprazole Sodium 20 mg PO DAILY 06/18/20 Allergies/Adverse Reactions: No Known Allergies Allergy (Unverified 03/04/20 23:25) Review of Systems All systems: reviewed and no additional remarkable complaints except as stated Physical Exam Vital Signs: Temp Pulse Resp BP Pulse Ox 98.4 F 84 12 122/69 99 06/21/20 17:05 06/21/20 17:05 06/21/20 17:05 06/21/20 17:05 06/21/20 17:05 Intake & Output 06/20/20 06/21/20 06/22/20 06:59 06:59 06:59 Intake Total 1615 1520 1370 Balance 1615 1520 1370 Weight 68 kg 67.6 kg Exam: General: Patient is alert and looks well. HEENT: There is no pallor or jaundice. PERRLA. Oropharynx normal Respiratory: No chest deformity. No respiratory distress. Chest wall palpitation was unremarkable. Breath sounds were normal Cardiovascular: Heart sounds 1 and 2 normal with no murmurs. Abdominal: Not distended. Soft and nontender. Liver and spleen not palpable. No ascites demonstrated. Bowel sounds active. Rectal examination was deferred. Extremities: No edema Neurological: Alert and oriented x4. Grossly nonfocal. Normal speech Skin: No significant rash Psychological: Normal affect Results Laboratory Results: 06/20/20 11:15 06/20/20 17:47 Impressions: Abdomen/Pelvis CT 06/18/20 14:39 IMPRESSION: 1. Small amount of ascites in the abdomen and pelvis. There appears a focal colon wall thickening in the sigmoid colon. Findings are suspicious for colitis. Infectious or inflammatory colitis could have this appearance. 2. Large amount of stool throughout the colon which can be seen with constipation. Clinical correlation for possible obstructive symptoms recommended. 3. Mild hepatic steatosis. 4. Post cholecystectomy. Assessment & Plan - Diagnosis (1) Acute recurrent pancreatitis Is this a current diagnosis for this admission?: Yes Plan: He has now had 3 episodes of acute pancreatitis 2 of which was associated with transient elevation of his LFTs. He also has biliary tree dilation shown on his intraoperative cholangiogram in March and also on 2 CAT scans performed last month and during this admission. This may be choledocholithiasis even though he did not have gallstones on his gallbladder specimen. The need for an ERCP including the risks and benefits was explained to the patient and his . (2) Dilated bile duct Is this a current diagnosis for this admission?: Yes (3) Abnormal liver function Is this a current diagnosis for this admission?: Yes (4) Biliary acute pancreatitis Qualifiers: Acute pancreatitis complication: unspecified Qualified Code(s): K85.10 - Biliary acute pancreatitis without necrosis or infection (5) Hepatic steatosis Is this a current diagnosis for this admission?: Yes
[2020-06-21] MEDS: ERYTHROMYCIN 0.5% OPH OINTMENT 3.5 GM TUBE OS SCH (22:12)
[2020-06-21] MEDS: RINGERS SOLUTION,LACTATED 1,000 ML IV PRN (22:18)
[2020-06-22] MEDS: HYDROMORPHONE HCL INJ/PF 2 MG/ML AMPULE IV PRN ×6 (02:16→21:47)
[2020-06-22] MEDS: METRONIDAZOLE 500 MG/NS RTU 500 MG/100 ML RTUPB IV SCH ×2 (05:31→12:18)
[2020-06-22] MEDS: BESIFLOXACIN HCL 0.6% OPH SUSP 5 ML BOTTLE OS SCH ×7 (05:31→21:48)
[2020-06-22] MEDS: HEPARIN SOD (PORCINE) 5,000 UNIT/ML 1 ML VIAL SUBCUT SCH ×3 (05:36→21:39)
[2020-06-22 09:31] LABS: ABSOLUTE EOSINOPHILS # (AUTO) 0.2 10^3/uL (0.0-0.6); ABSOLUTE MONOCYTES (AUTO) 0.7 10^3/uL (0.1-1.4); BASOPHILS % (AUTO) 0.3 % (0-2); EOSINOPHILS % (AUTO) 2.5 % (0-6); HEMATOCRIT 26.3 % (37.9-51.0); HEMOGLOBIN 9.1 g/dL (13.5-17.0); LYMPHOCYTES % (AUTO) 14.2 % (13-45); MEAN CORPUSCULAR HEMOGLOBIN 29.8 pg (27.0-33.4); MEAN CORPUSCULAR HGB CONC 34.4 g/dL (32.0-36.0); MEAN CORPUSCULAR VOLUME 86 fl (80-97); MONOCYTES % (AUTO) 10.5 % (3-13); PLATELET COUNT 135 10^3/uL (150-450); RED BLOOD COUNT 3.05 10^6/uL (4.35-5.55); SEGMENTED NEUTROPHILS % (AUTO) 72.5 % (42-78); TOTAL CELLS COUNTED % (AUTO) 100 %; WHITE BLOOD COUNT 6.8 10^3/uL (4.0-10.5)
[2020-06-22 09:52] LABS: ALBUMIN 2.8 g/dL (3.5-5.0); ALKALINE PHOSPHATASE 89 U/L (38-126); ANION GAP 7 (5-19); ASPARTATE AMINO TRANSFERASE 33 U/L (17-59); BILIRUBIN,DIRECT 0.2 mg/dL (0.0-0.4); BILIRUBIN,TOTAL 0.3 mg/dL (0.2-1.3); BLOOD UREA NITROGEN 9 mg/dL (7-20); CALCIUM 8.3 mg/dL (8.4-10.2); CARBON DIOXIDE 26 mmol/L (22-30); CHLORIDE 105 mmol/L (98-107); GLUCOSE 110 mg/dL (75-110); POTASSIUM 3.9 mmol/L (3.6-5.0); TOTAL PROTEIN 4.9 g/dL (6.3-8.2)
[2020-06-22] MEDS: FONDAPARINUX SODIUM INJ 7.5 MG/0.6 ML DISP.SYRIN SUBCUT SCH (10:14)
[2020-06-22] MEDS: PANTOPRAZOLE SODIUM 40 MG VIAL IV SCH ×2 (10:14→21:48)
[2020-06-22] MEDS: LEVOFLOXACIN 500 MG/D5W RTU 500 MG/100 ML RTUPB IV SCH (10:15)
[2020-06-22] MEDS ORDERED: EPINEPHRINE INJ 1 MG/10 ML DISP.SYRIN ONE (13:03)
[2020-06-22] MEDS ORDERED: GLUCAGON,HUMAN RECOMB 1 MG INJ ONE (13:03)
[2020-06-22] MEDS ORDERED: MIDAZOLAM 2 MG/2 ML INJ ONE (15:00)
[2020-06-22] MEDS ORDERED: PROPOFOL INJ 200 MG/20 ML VIAL IV ONE (15:00)
[2020-06-22] MEDS ORDERED: ONDANSETRON HCL INJ/PF 4 MG/2 ML SDV ONE (15:00)
[2020-06-22] MEDS ORDERED: FENTANYL CITRATE INJ/PF 100 MCG/2 ML AMPUL ONE (15:00)
--- NOTE | 2020-06-22 16:48 | Operative Report ---
Operative Report DATE OF SURGERY: 06/22/20 Operative Report: Pre-op diagnosis: Recurrent pancreatitis, abnormal LFTs and dilated common bile duct Post-op diagnosis: 1. Dilated common bile duct 2. Common bile duct sludge Surgery: ERCP with sphincterotomy and balloon sludge extraction Medications: As per anesthesia Tissue removed: None Procedure: After informed consent obtained from patient, patient was placed under general anesthesia. The ERCP endoscope was then inserted into the esophagus blindly and advanced into the stomach. The duodenum was entered and the ampulla with a very small opening was identified. Using the triple-lumen sphincterotomy catheter and with the help of the guidewire the common bile duct was freely cannulated. A cholangiogram was obtained . A good sized sphincterotomy was then performed using the endocut mode. The catheter was removed over the guidewire before a 12-15 mm balloon catheter was inserted. The balloon was inflated to 12 mm in the proximal common bile duct and pulled down the duct. The duct was swept two more times. I was able to pull the 15 mm balloon through the ampulla. A balloon occlusion cholangiogram was normal. Patient tolerated procedure well. Findings Common bile duct: There was some dilation with small amount of sludge extracted Intrahepatic ducts: Normal Pancreatic duct: Not cannulated Plan: Follow-up LFTs OPERATION: .
[2020-06-22] MEDS ORDERED: FENTANYL CITRATE INJ/PF 100 MCG/2 ML AMPUL IV PRN ×3 (16:55)
[2020-06-22] MEDS ORDERED: MORPHINE SULFATE 10 MG/ML INJ IV PRN (16:55)
[2020-06-22] MEDS ORDERED: DIPHENHYDRAMINE HCL 50 MG/ML VIAL IV PRN (16:55)
[2020-06-22] MEDS ORDERED: PROMETHAZINE HCL INJ 25 MG/1 ML VIAL IV PRN (16:55)
[2020-06-22] MEDS ORDERED: MEPERIDINE HCL/PF INJ 25 MG/1 ML DISP.SYRIN IV PRN (16:55)
--- NOTE | 2020-06-22 18:14 | RADIOLOGY REPORT (SQ) ---
EXAM DESCRIPTION: ENDO CATH BILI/PANCREATIC; NO CHG FLUORO IMAGES COMPLETED DATE/TIME: 06/22/2020 4:19 pm; 06/22/2020 4:20 pm REASON FOR STUDY: ERCP COMPARISON: None. FLUOROSCOPY TIME: 2.1 minutes 7 images saved to PACS. TECHNIQUE: Intra-operative images acquired during surgical procedure to evaluate progress. NUMBER OF IMAGES: 7 images LIMITATIONS: None. FINDINGS: Sequential images demonstrate upper endoscopy scope in the upper abdomen. Catheterization of the common bile duct with injection of contrast demonstrating no filling defect or stricture. No evidence of extravasation. IMPRESSION: IMAGE(S) OBTAINED DURING PROCEDURE. COMMENT: Quality ID [id number]: Final reports for procedures using fluoroscopy that document radiation exp osure indices, or exposure time and number of fluorographic images (if radiation exposure indices are not available) Please consult full operative report of the attending physician for description of the procedure. TECHNICAL DOCUMENTATION: JOB ID: [id number] 2010 [employer]- All Rights Reserved Reading location - IP/workstation name: [email or web address]
--- NOTE | 2020-06-22 18:14 | RADIOLOGY REPORT (SQ) ---
EXAM DESCRIPTION: ENDO CATH BILI/PANCREATIC; NO CHG FLUORO IMAGES COMPLETED DATE/TIME: 06/22/2020 4:19 pm; 06/22/2020 4:20 pm REASON FOR STUDY: ERCP COMPARISON: None. FLUOROSCOPY TIME: 2.1 minutes 7 images saved to PACS. TECHNIQUE: Intra-operative images acquired during surgical procedure to evaluate progress. NUMBER OF IMAGES: 7 images LIMITATIONS: None. FINDINGS: Sequential images demonstrate upper endoscopy scope in the upper abdomen. Catheterization of the common bile duct with injection of contrast demonstrating no filling defect or stricture. No evidence of extravasation. IMPRESSION: IMAGE(S) OBTAINED DURING PROCEDURE. COMMENT: Quality ID [id number]: Final reports for procedures using fluoroscopy that document radiation exp osure indices, or exposure time and number of fluorographic images (if radiation exposure indices are not available) Please consult full operative report of the attending physician for description of the procedure. TECHNICAL DOCUMENTATION: JOB ID: [id number] 2010 [employer]- All Rights Reserved Reading location - IP/workstation name: [email or web address]
[2020-06-22] MEDS: RINGERS SOLUTION,LACTATED 1,000 ML IV PRN (21:47)
[2020-06-22] MEDS: ERYTHROMYCIN 0.5% OPH OINTMENT 3.5 GM TUBE OS SCH (21:48)
[2020-06-23] MEDS: HYDROMORPHONE HCL INJ/PF 2 MG/ML AMPULE IV PRN ×2 (01:25→04:56)
[2020-06-23] MEDS: RINGERS SOLUTION,LACTATED 1,000 ML IV PRN (04:56)
[2020-06-23] MEDS: HEPARIN SOD (PORCINE) 5,000 UNIT/ML 1 ML VIAL SUBCUT SCH (05:01)
[2020-06-23 06:17] LABS: ABSOLUTE EOSINOPHILS # (AUTO) 0.1 10^3/uL (0.0-0.6); ABSOLUTE LYMPHOCYTES (AUTO) 1.1 10^3/uL (0.5-4.7); ABSOLUTE MONOCYTES (AUTO) 0.5 10^3/uL (0.1-1.4); BASOPHILS % (AUTO) 0.4 % (0-2); EOSINOPHILS % (AUTO) 1.5 % (0-6); HEMATOCRIT 27.3 % (37.9-51.0); HEMOGLOBIN 9.5 g/dL (13.5-17.0); LYMPHOCYTES % (AUTO) 19.4 % (13-45); MEAN CORPUSCULAR HGB CONC 34.7 g/dL (32.0-36.0); MEAN CORPUSCULAR VOLUME 87 fl (80-97); MONOCYTES % (AUTO) 9.2 % (3-13); PLATELET COUNT 195 10^3/uL (150-450); RED BLOOD COUNT 3.15 10^6/uL (4.35-5.55); RED CELL DISTRIBUTION WIDTH 13.2 % (11.5-14.0); SEGMENTED NEUTROPHILS % (AUTO) 69.5 % (42-78); TOTAL CELLS COUNTED % (AUTO) 100 %; WHITE BLOOD COUNT 5.8 10^3/uL (4.0-10.5)
[2020-06-23 06:39] LABS: ALBUMIN 2.8 g/dL (3.5-5.0); ALKALINE PHOSPHATASE 215 U/L (38-126); ASPARTATE AMINO TRANSFERASE 647 U/L (17-59); BILIRUBIN,DIRECT 0.4 mg/dL (0.0-0.4); BILIRUBIN,TOTAL 0.5 mg/dL (0.2-1.3); BLOOD UREA NITROGEN 6 mg/dL (7-20); CALCIUM 8.3 mg/dL (8.4-10.2); CARBON DIOXIDE 28 mmol/L (22-30); CHLORIDE 105 mmol/L (98-107); GLUCOSE 107 mg/dL (75-110); POTASSIUM 4.3 mmol/L (3.6-5.0); TOTAL PROTEIN 4.8 g/dL (6.3-8.2)
[2020-06-23 06:45] LABS: ANION GAP 6 (5-19)
[2020-06-23] MEDS: HYDROCODONE/ACETAMINOPHEN 10-325 MG TABLET PO PRN ×2 (08:48→13:26)
[2020-06-23] MEDS: PANTOPRAZOLE SODIUM 40 MG VIAL IV SCH (10:53)
[2020-06-23] MEDS: BESIFLOXACIN HCL 0.6% OPH SUSP 5 ML BOTTLE OS SCH ×2 (10:53→13:35)
[2020-06-23] MEDS: FONDAPARINUX SODIUM INJ 7.5 MG/0.6 ML DISP.SYRIN SUBCUT SCH (10:53)
--- NOTE | 2020-06-23 12:54 | PDOC PROGRESS REPORT ---
Subjective Progress Note for:: 06/22/20 Subjective:: Christian Hodges is a 34/m, no significant past medical history who was admitted on June 18, 2020 due to abdominal pain. He has a history of acute pancreatitis twice in the past. The first episode February 2020, he underwent cholecystectomy, an episode May 2020 treated with IV fluids pain medications. This would be his third episode of pancreatitis. Triglyceride level was normal on last admission. He does not drink alcohol. No known family history of pancr eatitis. He was seen by a farm implement engine mechanic as an outpatient after discharge last May. No further work-up for pancreatitis was planned. CT of the abdomen done on admission showed small amount of ascites in the abdomen and pelvis. There appears to be a focal colon wall thickening in the sigmoid colon. Findings are suspicious for colitis. Large amount of stool in the colon. Mild hepatic steatosis.He was started on antibiotics for colitis IV fluids and pain medications for pancreatitis. Day 2 hospital stay. He was seen and examined at bedside. He still appears to be in considerable pain. No nausea vomiting. No melena. He is still currently on IV fluids and Dilaudid for pain. GI was consulted regarding third episode of pancreatitis. Awaiting IgG4 testing. Per GI notes he might need colonoscopy in the future. Day 3 hospital stay 06/20/20. He was seen and examined at bedside. Still complains of significant abdominal pain. No fever, no nausea/vomiting. I spoke to Dr. Knapp and discussed the case with him. Most of the work up for pancreatitis has been unrevealing as to the cause of his recurrent pancreatitis. TAG is just mildly elevated, he is non alcoholic and IgG4 is normal. There is no pancreatic necrosis or pseudocyst in the CT. He suggests that he might need allen sfer to a tertiary care facility, also suggested colonoscopy for colitis. He is still on dilaudid for pain, IV fluids. He is put on clear liquids. Scheduled for colonoscopy tomorrow. Day 4 hospital stay 06/21/20. He was seen and examined at bedside. Abdominal pain seems to be much better. No fever, no nausea/vomiting. He underwent colonoscopy today found rectosigmoid colon polyp removed sent for pathology. He was asked if Dr. Damon can be put on consult since he knows him. Dr. damon informed and I left a message to Dr. Knapp's office. Day 5 hospital stay 06/22/20. He was seen and examined at bedside. Abdominal pain is improved, he is eating well and having regular bowel movements. He underwent ERCP and per Dr. Damon's note he removed some bile sludge and performed sphincterotomy. No fever, no nausea, vomiting. Reason For Visit: ACUTE PACREATITIS Physical Exam Vital Signs: Temp Pulse Resp BP Pulse Ox 98.3 F 58 L 16 129/77 H 100 06/23/20 09:00 06/23/20 07:13 06/23/20 07:13 06/23/20 07:13 06/23/20 07:13 Intake & Output 06/22/20 06/23/20 06/24/20 06:59 06:59 06:59 Intake Total 3895 2144 444 Output Total 400 Balance 3895 1744 444 Weight 67.8 kg 67.6 kg General appearance: PRESENT: no acute distress, cooperative Head exam: PRESENT: atraumatic, normocephalic Eye exam: PRESENT: EOMI, PERRLA Mouth exam: PRESENT: moist Respiratory exam: PRESENT: clear to auscultation luis felipe, symmetrical, unlabored Cardiovascular exam: PRESENT: RRR, +S1, +S2 GI/Abdominal exam: PRESENT: normal bowel sounds, soft. ABSENT: distended, rebound, tenderness Gentrourinary exam: ABSENT: erythema Extremities exam: PRESENT: full ROM Musculoskeletal exam: PRESENT: full ROM Neurological exam: PRESENT: alert, awake, oriented to person, oriented to place, oriented to time Psychiatric exam: PRESENT: normal mood Skin exam: PRESENT: normal color Results Laboratory Results: 06/23/20 05:24 06/23/20 05:24 06/23/20 06/23/20 05:24 05:24 WBC 5.8 RBC 3.15 L Hgb 9.5 L Hct 27.3 L MCV 87 MCH 30.0 MCHC 34.7 RDW 13.2 Plt Count 195 Seg Neutrophils % 69.5 Sodium 138.5 Potassium 4.3 Chloride 105 Carbon Dioxide 28 Anion Gap 6 BUN 6 L Creatinine 0.60 Est GFR ( Amer) > 60 Glucose 107 Calcium 8.3 L Total Bilirubin 0.5 AST 647 H Alkaline Phosphatase 215 H Total Protein 4.8 L Albumin 2.8 L Impressions: Abdomen/Pelvis CT 06/18/20 14:39 IMPRESSION: 1. Small amount of ascites in the abdomen and pelvis. There appears a focal colon wall thickening in the sigmoid colon. Findings are suspicious for colitis. Infectious or inflammatory colitis could have this appearance. 2. Large amount of stool throughout the colon which can be seen with constipation. Clinical correlation for possible obstructive symptoms recommended. 3. Mild hepatic steatosis. 4. Post cholecystectomy. Endo Retro Cholangiopancreatogram 06/22/20 00:00 IMPRESSION: IMAGE(S) OBTAINED DURING PROCEDURE. Fluoroscopy 06/22/20 00:00 IMPRESSION: IMAGE(S) OBTAINED DURING PROCEDURE. Assessment and Plan - Diagnosis (1) Acute recurrent pancreatitis Is this a current diagnosis for this admission?: Yes Plan: -Admitted due to abdominal pain, epigastric area 10 out of 10. Similar to prior pancreatitis episodes -Will be his third pancreatitis this year. Episode February 2020, underwent gallbladder removal. Second episode May 2020 managed with IV fluids pain medications. - Lipase [id number] - CT abdomen Findings are suspicious for colitis. Large amount of stool in the colon. Mild hepatic steatosis. -No pancreatic pseudocyst seen on CT, no necrosis -TriGlycerides on previous admission was normal -Does not drink alcohol heavily -Differential diagnosis autoimmune pancreatitis, or pancreatic divisum, and pancreatic duct abnormalities -IgG4 normal - continue IV fluids - norco for pain - advanced to regular diet -GI on board. Per Dr. Knapp may have Pancreatic divisum and tertiary care transfer for work up. - Patient requested Dr. Damon since he knows him (2) Colitis Is this a current diagnosis for this admission?: Yes Plan: -Colitis seen on CT abdomen during admission. -WBC count 11.3>7.8 - on metro and levaquin d4 will switch to oral abx tomorrow - blood cx negative x 2 - s/p colonoscopy, rectosigmoid polyp removed - GI on board. - no indication for surgery consult - morphine for pain (3) Elevated lipase Is this a current diagnosis for this admission?: Yes Plan: -Secondary to pancreatitis (4) Intractable abdominal pain Is this a current diagnosis for this admission?: Yes Plan: Secondary to pancreatitis and colitis Dilaudid for pain (5) Red eye associated with contact lens Is this a current diagnosis for this admission?: Yes Plan: - contact lens wearer complained of left red eye, with BOV, watery discharge, photophobia and eye pain - Dr. Lundy consulted he has seen him but has not dropped a note - started on erythromycin cream and besifloxacin eye drops (6) Thrombocytopenia Is this a current diagnosis for this admission?: Yes Plan: - platelet drop >50% from day of admission 313>88 - had prior heparin exposure 3 weeks back - ddx. HIT or secondary to ongoing infection - 4T HIT score intermediate probability - PF4 sent - heparin switched to arixtra - will monitor - Time Time Spent with patient: 25-34 minutes Anticipated Discharge Disposition: Home, Self Care Anticipated Discharge Timeframe: within 24 hours
--- NOTE | 2020-06-23 13:05 | PDOC DISCHARGE SUMMARY ---
Impression - Admit/DC Date/PCP Admission Date/Primary Care Provider: 06/18/20 17:[facility] Discharge Date: 06/23/20 - Discharge Diagnosis (1) Acute recurrent pancreatitis Is this a current diagnosis for this admission?: Yes (2) Colitis Is this a current diagnosis for this admission?: Yes (3) Elevated lipase Is this a current diagnosis for this admission?: Yes (4) Intractable abdominal pain Is this a current diagnosis for this admission?: Yes (5) Red eye associated with contact lens Is this a current diagnosis for this admission?: Yes (6) Thrombocytopenia Is this a current diagnosis for this admission?: Yes - Additional Information Resuscitation Status: Full Code Discharge Diet: As Tolerated Discharge Activity: Activity As Tolerated Referrals: MARVEL GONZALEZ MD [ACTIVE STAFF] - (Provider saw patient in the hospital and asked him to follow-up outpatinet.) AISHWARYA DAMON MD [ACTIVE STAFF] - (BX RESULTS) Prescriptions: Erythromycin Base [E-Mycin 0.5% Oph Ointment 3.5 gm] 1 applic OS QHS 5 Days #2 tube Hydrocodone/Acetaminophen [[place] 10-325 mg Tablet] 1 tab PO Q4HP PRN 3 Days #10 tablet PRN Reason: Home Medications: Pantoprazole Sodium 20 mg PO DAILY 06/18/20 Erythromycin Base [E-Mycin 0.5% Oph Ointment 3.5 gm] 1 applic OS QHS 5 Days #2 tube 06/23/20 Hydrocodone/Acetaminophen [[place] 10-325 mg Tablet] 1 tab PO Q4HP PRN 3 Days #10 tablet 06/23/20 History of Present Illiness History of Present Illness: KEILA JIANG is a 34 year old male, no significant past medical history who was admitted on June 18, 2020 due to abdominal pain. He has a history of acute pancreatitis twice in the past. The first episode February 2020, he underwent cholecystectomy, an episode May 2020 treated with IV fluids pain medications. This would be his third episode of pancreatitis. Triglyceride level was normal on last admission. He does not drink alcohol. No known family history of pancreatitis. He was seen by a front desk specialist as an outpatient after discharge last May. No further work-up for pancreatitis was planned. CT of the abdomen done on admission showed small amount of ascites in the abdomen and pelvis. There appears to be a focal colon wall thickening in the sigmoid colon. Findings are suspicious for colitis. Large amount of stool in the colon. Mild hepatic steatosis.He was started on antibiotics for colitis IV fluids and pain medications for pancreatitis., Hospital Course Hospital Course: Day 2 hospital stay. He was seen and examined at bedside. He still appears to be in considerable pain. No nausea vomiting. No melena. He is still currently on IV fluids and Dilaudid for pain. GI was consulted regarding third episode of pancreatitis. Awaiting IgG4 testing. Per GI notes he might need colonoscopy in the future. Day 3 hospital stay 06/20/20. He was seen and examined at bedside. Still complains of significant abdominal pain. No fever, no nausea/vomiting. I spoke to Dr. Knapp and discussed the case with him. Most of the work up for pancreatitis has been unrevealing as to the cause of his recurrent pancreatitis. TAG is just mildly elevated, he is non alcoholic and IgG4 is normal. There is no pancreatic necrosis or pseudocyst in the CT. He suggests that he might need transfer to a tertiary care facility, also suggested colonoscopy for colitis. He is still on dilaudid for pain, IV fluids. He is put on clear liquids. Scheduled for colonoscopy tomorrow. Day 4 hospital stay 06/21/20. He was seen and examined at bedside. Abdominal pain seems to be much better. No fever, no nausea/vomiting. He underwent colonoscopy today found rectosigmoid colon polyp removed sent for pathology. He was asked if Dr. Damon can be put on consult since he knows him. Dr. damon informed and I le ft a message to Dr. Knapp's office. Day 5 hospital stay 06/22/20. He was seen and examined at bedside. Abdominal pain is improved, he is eating well and having regular bowel movements. He underwent ERCP and per Dr. Damon's note he removed some bile sludge and performed sphincterotomy. No fever, no nausea, vomiting. Physical Exam Vital Signs: Temp Pulse Resp BP Pulse Ox 98.2 F 73 17 141/87 H 100 06/23/20 11:48 06/23/20 11:48 06/23/20 11:48 06/23/20 11:48 06/23/20 11:48 Intake & Output 06/22/20 06/23/20 06/24/20 06:59 06:59 06:59 Intake Total 3895 0850 443 Output Total 400 Balance 3897 5909 448 Weight 67.8 kg 67.6 kg General appearance: PRESENT: no acute distress, cooperative Head exam: PRESENT: atraumatic, normocephalic Eye exam: PRESENT: EOMI, PERRLA Mouth exam: PRESENT: moist Neck exam: PRESENT: full ROM Respiratory exam: PRESENT: clear to auscultation luis felipe, symmetrical, unlabored Cardiovascular exam: PRESENT: RRR, +S1, +S2 GI/Abdominal exam: PRESENT: normal bowel sounds, soft. ABSENT: rebound, tenderness Extremities exam: PRESENT: full ROM Musculoskeletal exam: PRESENT: full ROM Neurological exam: PRESENT: alert, awake, oriented to person, oriented to place, oriented to time, oriented to situation Results Laboratory Results: WBC 5.8 10^3/uL (4.0-10.5) 06/23/20 05:24 RBC 3.15 10^6/uL (4.35-5.55) L 06/23/20 05:24 Hgb 9.5 g/dL (13.5-17.0) L 06/23/20 05:24 Hct 27.3 % (37.9-51.0) L 06/23/20 05:24 MCV 87 fl (80-97) 06/23/20 05:24 MCH 30.0 pg (27.0-33.4) 06/23/20 05:24 MCHC 34.7 g/dL (32.0-36.0) 06/23/20 05:24 RDW 13.2 % (11.5-14.0) 06/23/20 05:24 Plt Count 195 10^3/uL (150-450) 06/23/20 05:24 Lymph % (Auto) 19.4 % (13-45) 06/23/20 05:24 [place] % (Auto) 9.2 % (3-13) 06/23/20 05:24 Eos % (Auto) 1.5 % (0-6) 06/23/20 05:24 Baso % (Auto) 0.4 % (0-2) 06/23/20 05:24 Absolute Neuts (auto) 4.0 10^3/uL (1.7-8.2) 06/23/20 05:24 Absolute Lymphs (auto) 1.1 10^3/uL (0.5-4.7) 06/23/20 05:24 Absolute Monos (auto) 0.5 10^3/uL (0.1-1.4) 06/23/20 05:24 Absolute Eos (auto) 0.1 10^3/uL (0.0-0.6) 06/23/20 05:24 Absolute Basos (auto) 0.0 10^3/uL (0.0-0.2) 06/23/20 05:24 Seg Neutrophils % 69.5 % (42-78) 06/23/20 05:24 Platelet Estimate Cancelled 06/20/20 09:23 Sodium 138.5 mmol/L (137-145) 06/23/20 05:24 Potassium 4.3 mmol/L (3.6-5.0) 06/23/20 05:24 Chloride 105 mmol/L (98-107) 06/23/20 05:24 Carbon Dioxide 28 mmol/L (22-30) 06/23/20 05:24 Anion Gap 6 (5-19) 06/23/20 05:24 BUN 6 mg/dL (7-20) L 06/23/20 05:24 Creatinine 0.60 mg/dL (0.52-1.25) 06/23/20 05:24 Est GFR ( Amer) > 60 (>60) 06/23/20 05:24 Est GFR (MDRD) Non-Af > 60 (>60) 06/23/20 05:24 Glucose 107 mg/dL (75-110) 06/23/20 05:24 Hemoglobin A1c % 5.2 % (4.7-6.0) 06/19/20 06:11 Lactic Acid 0.6 mmol/L (0.7-2.1) L 06/18/20 18:15 Calcium 8.3 mg/dL (8.4-10.2) L 06/23/20 05:24 Magnesium 1.8 mg/dL (1.6-2.3) 06/19/20 06:11 Total Bilirubin 0.5 mg/dL (0.2-1.3) 06/23/20 05:24 Direct Bilirubin 0.4 mg/dL (0.0-0.4) 06/23/20 05:24 Neonat Total Bilirubin Not Reportable 06/23/20 05:24 Neonat Direct Bilirubin Not Reportable 06/23/20 05:24 Neonat Indirect Bili Not Reportable 06/23/20 05:24 AST 647 U/L (17-59) H 06/23/20 05:24 ALT 191 U/L (<50) H 06/23/20 05:24 Alkaline Phosphatase 215 U/L (38-126) H 06/23/20 05:24 Total Protein 4.8 g/dL (6.3-8.2) L 06/23/20 05:24 Albumin 2.8 g/dL (3.5-5.0) L 06/23/20 05:24 Triglycerides 154 mg/dL (<150) H 06/19/20 06:11 Cholesterol 152.73 mg/dL (0-200) 06/19/20 06:11 LDL Cholesterol Direct 74 mg/dL (<100) 06/19/20 06:11 VLDL Cholesterol 30.8 mg/dL (10-31) 06/19/20 06:11 HDL Cholesterol 46 mg/dL (>40) 06/19/20 06:11 Amylase 2974 U/L (30-110) H 06/19/20 06:11 Lipase 34818.3 U/L (23-300) H 06/19/20 06:11 TSH 1.20 uIU/mL (0.47-4.68) 06/19/20 06:11 Urine Color REBECCA 06/18/20 12:45 Urine Appearance CLEAR 06/18/20 12:45 Urine pH 6.0 (5.0-9.0) 06/18/20 12:45 Ur Specific [place] 1.032 06/18/20 12:45 Urine Protein 100 mg/dL (NEGATIVE) H 06/18/20 12:45 Urine Glucose (UA) NEGATIVE mg/dL (NEGATIVE) 06/18/20 12:45 Urine Ketones TRACE mg/dL (NEGATIVE) H 06/18/20 12:45 Urine Blood NEGATIVE (NEGATIVE) 06/18/20 12:45 Urine Nitrite NEGATIVE (NEGATIVE) 06/18/20 12:45 Urine Bilirubin MODERATE (NEGATIVE) H 06/18/20 12:45 Urine Urobilinogen 2.0 mg/dL (<2.0) H 06/18/20 12:45 Ur Leukocyte Esterase TRACE (NEGATIVE) H 06/18/20 12:45 Urine WBC (Auto) 1 /HPF 06/18/20 12:45 Urine RBC (Auto) 1 /HPF 06/18/20 12:45 Calcium Oxalate Cr Auto RARE /HPF 06/18/20 12:45 Urine Mucus (Auto) FEW /LPF 06/18/20 12:45 Urine Ascorbic Acid 40 (NEGATIVE) H 06/18/20 12:45 Urine Opiates Screen 06/18/20 12:45 Urine Methadone Screen NEGATIVE 06/18/20 12:45 Ur Barbiturates Screen 06/18/20 12:45 Ur Phencyclidine Scrn 06/18/20 12:45 Ur Amphetamines Screen NEGATIVE 06/18/20 12:45 U Benzodiazepines Scrn 06/18/20 12:45 Urine Cocaine Screen 06/18/20 12:45 U Marijuana (THC) Screen 06/18/20 12:45 IgG4 43 mg/dL (2-96) 06/19/20 06:11 SARS-CoV-2 (PCR) NEGATIVE (NEGATIVE) 06/20/20 17:50 Slides for Path Review Cancelled 06/20/20 09:23 Impressions: Abdomen/Pelvis CT 06/18/20 14:39 IMPRESSION: 1. Small amount of ascites in the abdomen and pelvis. There appears a focal colon wall thickening in the sigmoid colon. Findings are suspicious for colitis. Infectious or inflammatory colitis could have this appearance. 2. Large amount of stool throughout the colon which can be seen with constipation. Clinical correlation for possible obstructive symptoms recommended. 3. Mild hepatic steatosis. 4. Post cholecystectomy. Endo Retro Cholangiopancreatogram 06/22/20 00:00 IMPRESSION: IMAGE(S) OBTAINED DURING PROCEDURE. Fluoroscopy 06/22/20 00:00 IMPRESSION: IMAGE(S) OBTAINED DURING PROCEDURE. Plan Plan of Treatment: - continue pain medications and abx for 3 more days - abstain from Alcohol Time Spent: Less than 30 Minutes Stroke Is this a Stroke Patient?: No Acute Heart Failure Is this a Heart Failure Patient?: No
[2020-06-23 14:20] VITALS: BP 130/72
== END 2020-06-23 14:30 | disposition home or self-care (01) | DRG 440 ==
LOC: ER 11:08 → EH 17:31 → 4S 18:50
PROVIDERS: ADMIT Internal Medicine; ATTEND Internal Medicine
PROC: 0DBN8ZZ Excision of Sigmoid Colon, Via Natural or Artificial Opening Endoscopic (ICD-10-PCS; 2020-06-21)
PROC: 0DBF8ZX Excision of Right Large Intestine, Via Natural or Artificial Opening Endoscopic, Diagnostic (ICD-10-PCS; 2020-06-21)
PROC: 0F798ZZ Dilation of Common Bile Duct, Via Natural or Artificial Opening Endoscopic (ICD-10-PCS; principal; 2020-06-22 15:15)
PROC: BF101ZZ Fluoroscopy of Bile Ducts using Low Osmolar Contrast (ICD-10-PCS; 2020-06-22 15:15)
DX: K85.10 Biliary acute pancreatitis without necrosis or infection (principal); K86.1 Other chronic pancreatitis; K52.9 Noninfective gastroenteritis and colitis, unspecified; H57.89 Other specified disorders of eye and adnexa; D69.6 Thrombocytopenia, unspecified; K63.5 Polyp of colon; K76.0 Fatty (change of) liver, not elsewhere classified; K59.00 Constipation, unspecified; K64.8 Other hemorrhoids; Z03.818 Encounter for observation for suspected exposure to other biological agents ruled out; Z79.899 Other long term (current) drug therapy; Z82.49 Family history of ischemic heart disease and other diseases of the circulatory system
CPT/HCPCS: 36415; 43262; 43264; 43277; 45380; 45385; 732; 74177; 74330; 80053; 80061; 80307; 81001; 811; 82150; 83036; 83520; 83605; 83690; 83735; 84443; 85025; 87040; 87070; 87635; 88305; 96361; 96374; 96375; 99140; 99285; C9113; C9803; J0171; J1170; J1610; J1644; J1652; J1885; J1956; J2250; J2270; J2405; J2704; J3010; J3490; J7030; J7120; Q9967